=== PATIENT | female | born 1940 | race Two or more races ===

== ENCOUNTER 2019-08-15 00:45 | Inpatient (IN) | payer MEDICARE, OTHER ==
[2019-08-15] VITALS (10 sets, daily range): BP systolic 81–124; BP diastolic 45–72
[~2019-08-15] VITALS: Ht 160 cm; Wt 66.7 kg
[2019-08-15] MEDS ORDERED: ALBUTEROL2.5 MG/3 M INH (00:52)
[2019-08-15] MEDS ORDERED: CARDIZEM30 M1 PO (00:53)
[2019-08-15] MEDS ORDERED: HEPARIN SO5000 UNIT2 SUBQ (00:53)
[2019-08-15] MEDS ORDERED: ASPIRIN EC81 MG ORAL (00:53)
[2019-08-15] MEDS ORDERED: DIGOXIN125 MCG ORAL (00:53)
[2019-08-15] MEDS ORDERED: Acetaminophen 500mg (ES) tab ORAL ONE (01:00)
[2019-08-15] MEDS ORDERED: METOPROLOL TART25 MG ORAL (01:02)
[2019-08-15] MEDS ORDERED: ATORVASTATIN CA10 MG ORAL (01:02)
[2019-08-15] MEDS ORDERED: IPRATROPIU0.2 MG/1 M HHN (01:02)
[2019-08-15] MEDS ORDERED: NOVOLIN R100 UNIT/1 SUBQ (01:02)
[2019-08-15] MEDS ORDERED: NITROSTAT0.4 M1 SL (01:02)
[2019-08-15] MEDS ORDERED: POTASSIUM40 MEQ/11 PO (01:02)
[2019-08-15] MEDS ORDERED: THERA-M TABLET1 EACH PO (01:02)
[2019-08-15] MEDS ORDERED: LOMOTIL TABLET1 EACH ORAL (01:02)
[2019-08-15] MEDS ORDERED: ACETAMINOPHEN325 M1 ORAL (01:02)
[2019-08-15] MEDS ORDERED: VITAMIN C500 M1 ORAL (01:04)
[2019-08-15] MEDS ORDERED: POTASSIUM CHLO20 ME1 ORAL (01:04)
--- NOTE | 2019-08-15 01:07 | Emergency Room Report ---
History of Present Illness General Chief Complaint: Altered Level of Consciousness Source: Patient Present Illness HPI Disclaimer: Please note that this report is being documented using [employer] technology. This can lead to erroneous entry secondary to incorrect interpretation by the dictating instrument. HPI: 79-year-old female with a history of paroxysmal atrial fibrillation, asthma , COPD, CHF, diabetes, hypertension, hyperlipidemia, generalized weakness presents for evaluation of altered mental status and reported hypoxia. The patient herself cannot provide any history and is unclear what her baseline is. According to EMS she was became somewhat altered over the past few hours but they cannot elaborate as to how. There is also report of hypoxia at the nursing facility however she was 100% for EMS during transport. Cannot obtain any further information from the patient. She is nonverbal. PMH: Proximal asthma atrial fib, asthma, COPD, CHF, diabetes, hypertension, hyperlipidemia PSH: Unspecified joint replacement noted in transfer paperwork Allergies: Infliximab Social Hx: Unknown Allergies: Coded Allergies: INFLIXIMAB (Verified Allergy, Unknown, 08/15/19) Nursing Documentation-PMH Past Medical History: No History, Except For Hx Hypertension: Yes Hx Asthma: Yes Hx COPD: Yes Hx Diabetes: Yes Review of Systems All Other Systems: limited - Patient clinical condition Physical Exam Vital Signs Date Time Temp Pulse Resp B/P (MAP) Pulse Ox O2 Delivery O2 Flow Rate FiO2 08/15/19 00:40 102.0 132 22 118/64 (82) 100 Room Air General: Awake, nonverbal, febrile HEENT: NC/AT. EOMI. anicteric sclera. Cardiovascular: Tachycardic. S1 and S2 normal. No murmur appreciated Resp: Mild tachypnea. Crackles at the left lung base. No wheezing. Intermittent cough Abdomen: Abdomen is soft, nondistended. No apparent tenderness. There is bruising over the right side of the abdomen Skin: MSK: Normal tone and bulk. No obvious deformity. Neuro: Awake, nonverbal, moving all extremities though no purposeful movements. Protecting her airway. GCS is 10 Medical Decision Making Diagnostic Impression: Primary Impression: Pneumonia Additional Impressions: Tachycardia UTI (urinary tract infection) ER Course 79-year-old female presents from nursing facility for evaluation altered mental status and reported hypoxia. She arrives febrile and tachycardic. Concern for sepsis at this time. We will start broad metabolic and infectious work-up. No evidence of trauma. The bruising over the abdomen represents her DVT prophylaxis regimen. Patient has 3+ lower extremity pitting edema and concern for volume overload at this time. Will not start aggressive IV hydration but will treat fever and give antibiotics empirically. Awaiting chest x-ray and BNP prior to IV fluid administration. She will require admission. Laboratory Tests Test 08/15/19 01:00 08/15/19 01:01 08/15/19 01:40 08/15/19 03:00 Sodium Level 140 MMOL/L (136-145) Potassium Level 4.3 MMOL/L (3.5-5.1) Chloride Level 104 MMOL/L (98-107) Carbon Dioxide Level 30 MMOL/L (21-32) Anion Gap 6 mmol/L (5-15) Blood Urea Nitrogen 15 mg/dL (7-18) Creatinine 0.9 MG/DL (0.55-1.30) Estimate Glomerular Filtration Rate mL/min (>60) Glucose Level 154 MG/DL (74-106) H Lactic Acid Level 2.10 mmol/L (0.4-2.0) H Calcium Level 9.3 MG/DL (8.5-10.1) Phosphorus Level 2.5 MG/DL (2.5-4.9) Magnesium Level 1.2 MG/DL (1.8-2.4) L Total Bilirubin 0.6 MG/DL (0.2-1.0) Aspartate Amino Transferase (AST) 32 U/L (15-37) Alanine Aminotransferase (ALT) 24 U/L (12-78) Alkaline Phosphatase 109 U/L (46-116) Total Creatine Kinase 67 U/L (26-308) Creatine Kinase MB 1.8 NG/ML (0.0-3.6) Creatine Kinase MB Relative Index 2.6 Troponin I 0.018 ng/mL (0.000-0.056) Pro-B-Type Natriuretic Peptide 1179 pg/mL (0-125) H Total Protein 6.5 G/DL (6.4-8.2) Albumin 2.5 G/DL (3.4-5.0) L Globulin 4.0 g/dL Albumin/Globulin Ratio 0.6 (1.0-2.7) L Arterial Blood pH 7.450 (7.350-7.450) Arterial Blood Partial Pressure CO2 39.2 mmHg (35.0-45.0) Arterial Blood Partial Pressure O2 103.2 mmHg (75.0-100.0) H Arterial Blood HCO3 26.6 mmol/L (22.0-26.0) H Arterial Blood Oxygen Saturation Pending Arterial Blood Base Excess 2.6 (-2-2) H Brandon Test Positive White Blood Count 6.9 K/UL (4.8-10.8) Red Blood Count 3.48 M/UL (4.20-5.40) L Hemoglobin 9.6 G/DL (12.0-16.0) L Hematocrit 30.6 % (37.0-47.0) L Mean Corpuscular Volume 88 FL (80-99) Mean Corpuscular Hemoglobin 27.7 PG (27.0-31.0) Mean Corpuscular Hemoglobin Concent 31.4 G/DL (32.0-36.0) L Red Cell Distribution Width 17.5 % (11.6-14.8) H Platelet Count 158 K/UL (150-450) Mean Platelet Volume 5.2 FL (6.5-10.1) L Neutrophils (%) (Auto) % (45.0-75.0) Lymphocytes (%) (Auto) % (20.0-45.0) Monocytes (%) (Auto) % (1.0-10.0) Eosinophils (%) (Auto) % (0.0-3.0) Basophils (%) (Auto) % (0.0-2.0) Neutrophils % (Manual) Pending Lymphocytes % (Manual) Pending Platelet Estimate Pending Platelet Morphology Pending Prothrombin Time 11.2 SEC (9.30-11.50) Prothrombin Time INR 1.1 (0.9-1.1) PTT 22 SEC (23-33) L Urine Color Pale yellow Urine Appearance Slightly cloudy Urine pH 6 (4.5-8.0) Urine Specific [place] 1.010 (1.005-1.035) Urine Protein 3+ (NEGATIVE) H Urine Glucose (UA) Negative (NEGATIVE) Urine Ketones 1+ (NEGATIVE) H Urine Blood 4+ (NEGATIVE) H Urine Nitrite Positive (NEGATIVE) H Urine Bilirubin Negative (NEGATIVE) Urine Urobilinogen Normal MG/DL (0.0-1.0) Urine Leukocyte Esterase 1+ (NEGATIVE) H Urine RBC 10-15 /HPF (0 - 2) H Urine WBC 20-30 /HPF (0 - 2) H Urine Squamous Epithelial Cells Few /LPF (NONE/OCC) Urine Bacteria Moderate /HPF (NONE) H Urine Coarse Granular Casts 0-2 /LPF (NONE) H Test 08/15/19 03:22 Lactic Acid Level 1.20 mmol/L (0.66-2.22) EKG Diagnostic Results EKG Time: 00:50 Rate: tachycardiac Rhythm: NSR ST Segments: no acute changes Other Impression Tachycardic, regular rhythm, occasional PVC. No ST segment changes. Rhythm Strip Diag. Results Rhythm Strip Time: 00:50 EP Interpretation: yes Rate: 130s Rhythm: other - Occasional PVC Chest X-Ray Diagnostic Results Chest X-Ray Diagnostic Results : Chest X-Ray Ordered: Yes Indication: Shortness of Breath EP Interpretation: Yes Interpretation: other - Left-sided effusion and consolidation concerning for pneumonia Impression: Other - Left effusion and consolidation, small effusion on the right Electronically Signed by: Electronically signed by Dr. Darren Downing Reevaluation Time: 02:32 Last Vital Signs Date Time Temp Pulse Resp B/P (MAP) Pulse Ox O2 Delivery O2 Flow Rate FiO2 08/15/19 00:40 102.0 132 22 118/64 (82) 100 Room Air Status: improved Reevaluation Impression Tachycardia is improving. Chest x-ray is concerning for left-sided pneumonia. Urinalysis shows acute urinary tract infection. The patient was treated with antibiotics empirically. Blood cultures are sent. Lactate was slightly elevated. She is receiving a small bolus of IV fluids and will proceed with hydration gradually given her CHF status. Will be admitted to the hospital for further management. Disposition: ADMITTED INPATIENT Condition: Serious Darren Downing MD Aug 15, 2019 01:07
[2019-08-15] MEDS ORDERED: Cefepime HCl 2 GM in NS 110 ML IV SCH (01:15)
[2019-08-15] MEDS ORDERED: Vancomycin 1 GM in NS 275 ML IV ONE (01:15)
[2019-08-15 01:42] LABS: ANION GAP 6 mmol/L (5-15); BLOOD UREA NITROGEN 15 mg/dL (7-18); CALCIUM 9.3 MG/DL (8.5-10.1); CARBON DIOXIDE 30 MMOL/L (21-32); CHLORIDE 104 MMOL/L (98-107); CREATININE 0.9 MG/DL (0.55-1.30); POTASSIUM 4.3 MMOL/L (3.5-5.1); SODIUM 140 MMOL/L (136-145)
[2019-08-15 01:51] LABS: HEMATOCRIT 30.6 % (37.0-47.0); HEMOGLOBIN 9.6 G/DL (12.0-16.0); MEAN CORPUSCULAR VOLUME 88 FL (80-99); PLATELET COUNT 158 K/UL (150-450); RED BLOOD COUNT 3.48 M/UL (4.20-5.40); RED CELL DISTRIBUTION WIDTH 17.5 % (11.6-14.8); WHITE BLOOD COUNT 6.9 K/UL (4.8-10.8)
[2019-08-15 01:55] LABS: ALANINE AMINOTRANSFERASE 24 U/L (12-78); ALBUMIN 2.5 G/DL (3.4-5.0); ALBUMIN/GLOBULIN RATIO 0.6 (1.0-2.7); ALKALINE PHOSPHATASE 109 U/L (46-116); ASPARTATE AMINO TRANSFERASE 32 U/L (15-37); BILIRUBIN,TOTAL 0.6 MG/DL (0.2-1.0); CKMB 1.8 NG/ML (0.0-3.6); CREATINE KINASE 67 U/L (26-308); PHOSPHORUS 2.5 MG/DL (2.5-4.9)
[2019-08-15 02:13] LABS: INR 1.1 (0.9-1.1)
--- NOTE | 2019-08-15 02:30 | Diagnostic Imaging Report ---
EXAM: XR Chest, 1 View CLINICAL HISTORY: COUGH TECHNIQUE: Frontal view of the chest. COMPARISON: No relevant prior studies available. FINDINGS: Lungs: See below. Pleural space: Some increased density is seen at the lung bases suggestive of small bilateral pleural effusions versus pleural thickening with adjacent atelectasis versus infiltrate, left worse than right. No definite plain film evidence for pneumothorax. Heart: Question of some prominence of the cardiac silhouette. Mediastinum: Unremarkable. Bones joints: Thoracic dextroscoliosis. Degenerative changes of the acromioclavicular joints. IMPRESSION: Some increased density is seen at the lung bases suggestive of small bilateral pleural effusions versus pleural thickening with adjacent atelectasis versus infiltrate, left worse than right.
[2019-08-15 03:26] LABS: APPEARANCE,URINE SLIGHTLY CLOUDY; BILIRUBIN, URINE NEGATIVE (NEGATIVE); COLOR,URINE PALE YELLOW; GLUCOSE, URINE (UA) NEGATIVE (NEGATIVE); KETONES,URINE 1+ (NEGATIVE); LEUKOCYTE ESTERASE ,URINE 1+ (NEGATIVE); NITRITE,URINE POSITIVE (NEGATIVE); PH,URINE 6 (4.5-8.0); PROTEIN,URINE 3+ (NEGATIVE); UROBILINOGEN,URINE NORMAL MG/DL (0.0-1.0)
[2019-08-15] MEDS ORDERED: ACIDOPHILUS1 EAC6 PO (04:46)
[2019-08-15] MEDS ORDERED: Albuterol/Ipratropium 3ml neb HHN PRN (06:45)
[2019-08-15] MEDS ORDERED: Nitroglycerin Subl 0.4mg tab SL PRN (06:45)
[2019-08-15] MEDS ORDERED: D5 1/2NS 1,000 ML IV SCH (08:00)
[2019-08-15 08:47] LABS: HEMATOCRIT 27.8 % (37.0-47.0); HEMOGLOBIN 8.8 G/DL (12.0-16.0); MEAN CORPUSCULAR VOLUME 90 FL (80-99); PLATELET COUNT 157 K/UL (150-450); RED CELL DISTRIBUTION WIDTH 17.5 % (11.6-14.8); WHITE BLOOD COUNT 15.9 K/UL (4.8-10.8)
[2019-08-15 08:49] LABS: ANION GAP 6 mmol/L (5-15); BLOOD UREA NITROGEN 18 mg/dL (7-18); CALCIUM 8.4 MG/DL (8.5-10.1); CARBON DIOXIDE 26 MMOL/L (21-32); CHLORIDE 109 MMOL/L (98-107); POTASSIUM 3.9 MMOL/L (3.5-5.1); SODIUM 141 MMOL/L (136-145)
[2019-08-15] MEDS: NS 500 ML IV SCH ×2 (08:59→12:00)
[2019-08-15] MEDS ORDERED: Cefepime HCl 1 GM in D5W 55 ML IVPB SCH (09:00)
[2019-08-15] MEDS: Ascorbic Acid 500mg tab ORAL SCH (09:11)
[2019-08-15] MEDS: Aspirin EC 81mg tab ORAL SCH (09:11)
[2019-08-15] MEDS: Lactobacillus-GG tablet ORAL SCH ×3 (09:11→17:28)
[2019-08-15] MEDS: Pantoprazole Inj IVP SCH (09:12)
[2019-08-15] MEDS: Digoxin 0.125mg tab ORAL SCH (09:55)
[2019-08-15] MEDS ORDERED: Cefepime 2gm in D5W 55ml IVPB SCH (10:00)
[2019-08-15] MEDS: Heparin 5000 units/ml inj SUBQ SCH ×2 (10:01→22:00)
[2019-08-15] MEDS: Doxycycline Hyclate 100 MG in D5W 110 ML IV SCH ×2 (10:46→22:39)
[2019-08-15] MEDS: NovoLOG Insulin Flexpen SUBQ SCH ×3 (12:08→21:52)
--- NOTE | 2019-08-15 12:42 | History & Physical ---
History and Physical History & Physicial History and Physical HPI: Patient is a 79-year-old female from a nursing facility with a history of Paroxysmal atrial fibrillation, Asthma/COPD, Congestive Heart Failure, Diabetes , Hypertension, Hyperlipidemia, Generalized weakness admitted with Urinary Tract Infection, Possible Pneumonia, Altered mental status. The patient herself cannot provide any history. PMH: Asthma, atrial fibrillation, COPD, CHF, diabetes, hypertension, hyperlipidemia Allergies: INFLIXIMAB All Other Systems: limited - Patient clinical condition Physical Exam Vital Signs Noted Date Time Temp Pulse Resp B/P (MAP) Pulse Ox O2 Delivery O2 Flow Rate FiO2 08/15/19 00:40 102.0 132 22 118/64 (82) 100 Room Air General: Awake, nonverbal, febrile, chronicaly ill appearing HEENT: NCAT. EOMI. anicteric sclera. Dry mucus membranes Cardiovascular: Tachycardic. S1 and S2 normal. No murmur appreciated Resp: Mild tachypnea. Crackles at the left lung base. No wheezing. Abdomen: Abdomen is soft, nondistended. No apparent tenderness. There is bruising over the right side of the abdomen Skin: No rash, no edema MSK: Generally weak Neuro: Awake, nonverbal, moving all extremities though no purposeful movements. Protecting her airway. GCS is 10 Impression: Pneumonia Urinary tract infection Sepsis Paroxysmal atrial fibrillation Asthma/COPD Congestive Heart Failure Diabete Hypertension Hyperlipidemia Generalized weakness Plan IV Antibiotics IVF - cautious O2 PRN HHN [employer] medications - hold diuretics/antihypertensives for now Aspiration precautions ST evaluation PPX Monitor labs CT Head Laboratory Tests Test 08/15/19 01:00 08/15/19 01:01 08/15/19 01:40 08/15/19 03:00 Sodium Level 140 MMOL/L (136-145) Potassium Level 4.3 MMOL/L (3.5-5.1) Chloride Level 104 MMOL/L (98-107) Carbon Dioxide Level 30 MMOL/L (21-32) Anion Gap 6 mmol/L (5-15) Blood Urea Nitrogen 15 mg/dL (7-18) Creatinine 0.9 MG/DL (0.55-1.30) Estimate Glomerular Filtration Rate mL/min (>60) Glucose Level 154 MG/DL (74-106) H Lactic Acid Level 2.10 mmol/L (0.4-2.0) H Calcium Level 9.3 MG/DL (8.5-10.1) Phosphorus Level 2.5 MG/DL (2.5-4.9) Magnesium Level 1.2 MG/DL (1.8-2.4) L Total Bilirubin 0.6 MG/DL (0.2-1.0) Aspartate Amino Transferase (AST) 32 U/L (15-37) Alanine Aminotransferase (ALT) 24 U/L (12-78) Alkaline Phosphatase 109 U/L (46-116) Total Creatine Kinase 67 U/L (26-308) Creatine Kinase MB 1.8 NG/ML (0.0-3.6) Creatine Kinase MB Relative Index 2.6 Troponin I 0.018 ng/mL (0.000-0.056) Pro-B-Type Natriuretic Peptide 1179 pg/mL (0-125) H Total Protein 6.5 G/DL (6.4-8.2) Albumin 2.5 G/DL (3.4-5.0) L Globulin 4.0 g/dL Albumin/Globulin Ratio 0.6 (1.0-2.7) L Arterial Blood pH 7.450 (7.350-7.450) Arterial Blood Partial Pressure CO2 39.2 mmHg (35.0-45.0) Arterial Blood Partial Pressure O2 103.2 mmHg (75.0-100.0) H Arterial Blood HCO3 26.6 mmol/L (22.0-26.0) H Arterial Blood Oxygen Saturation Pending Arterial Blood Base Excess 2.6 (-2-2) H Brandon Test Positive White Blood Count 6.9 K/UL (4.8-10.8) Red Blood Count 3.48 M/UL (4.20-5.40) L Hemoglobin 9.6 G/DL (12.0-16.0) L Hematocrit 30.6 % (37.0-47.0) L Mean Corpuscular Volume 88 FL (80-99) Mean Corpuscular Hemoglobin 27.7 PG (27.0-31.0) Mean Corpuscular Hemoglobin Concent 31.4 G/DL (32.0-36.0) L Red Cell Distribution Width 17.5 % (11.6-14.8) H Platelet Count 158 K/UL (150-450) Mean Platelet Volume 5.2 FL (6.5-10.1) L Neutrophils (%) (Auto) % (45.0-75.0) Lymphocytes (%) (Auto) % (20.0-45.0) Monocytes (%) (Auto) % (1.0-10.0) Eosinophils (%) (Auto) % (0.0-3.0) Basophils (%) (Auto) % (0.0-2.0) Neutrophils % (Manual) Pending Lymphocytes % (Manual) Pending Platelet Estimate Pending Platelet Morphology Pending Prothrombin Time 11.2 SEC (9.30-11.50) Prothrombin Time INR 1.1 (0.9-1.1) PTT 22 SEC (23-33) L Urine Color Pale yellow Urine Appearance Slightly cloudy Urine pH 6 (4.5-8.0) Urine Specific [place] 1.010 (1.005-1.035) Urine Protein 3+ (NEGATIVE) H Urine Glucose (UA) Negative (NEGATIVE) Urine Ketones 1+ (NEGATIVE) H Urine Blood 4+ (NEGATIVE) H Urine Nitrite Positive (NEGATIVE) H Urine Bilirubin Negative (NEGATIVE) Urine Urobilinogen Normal MG/DL (0.0-1.0) Urine Leukocyte Esterase 1+ (NEGATIVE) H Urine RBC 10-15 /HPF (0 - 2) H Urine WBC 20-30 /HPF (0 - 2) H Urine Squamous Epithelial Cells Few /LPF (NONE/OCC) Urine Bacteria Moderate /HPF (NONE) H Urine Coarse Granular Casts 0-2 /LPF (NONE) H Test 08/15/19 03:22 Lactic Acid Level 1.20 mmol/L (0.66-2.22) EKG: tachycardic, regular rhythm, occasional PVC. No ST segment changes. Chest X-Ray: Left-sided effusion and consolidation concerning for pneumonia Urinalysis urinary tract infection. Labs noted. Smooth Tim MD Aug 15, 2019 12:42
--- NOTE | 2019-08-15 14:24 | Diagnostic Imaging Report ---
Indications: Altered level of consciousness Technique: Spiral acquisitions obtained through the brain. Angled axial and coronal 5 x 5 mm slices were reconstructed. Total dose length product 1298 mGycm. CTDI vol(s) 60 mGy. Dose reduction achieved using automated exposure control Comparison: None. Findings: There is age-related enlargement of the ventricles and extra axial CSF spaces. Normal robbins-white differentiation. No acute intracranial hemorrhage or edema. No mass effect nor midline shift. Normal robbins-white differentiation. Intact calvarium. There is evidence of prior bilateral cataract surgery. There is mucosal thickening of the left maxillary sinus. The visualized sinuses are otherwise clear. The calvarium is intact. There is mastoid disease bilaterally, left greater than right Impression: Age-related changes. Negative for acute intracranial bleed or mass effect Mastoid and left maxillary sinus disease This agrees with the preliminary interpretation provided overnight by [facility] teleradiology service. The CT scanner at [facility] is accredited by the [employer] and the scans are performed using protocols designed to limit radiation exposure to as low as reasonably achievable to attain images of sufficient resolution adequate for diagnostic evaluation.
[2019-08-16] VITALS: BP 105/68
[2019-08-16] MEDS: Cefepime 2gm in D5W 55ml IVPB SCH ×2 (02:11→14:35)
[2019-08-16] MEDS ORDERED: Vancomycin 750mg/D5W 275ml IVPB SCH ×4 (02:30→04:00)
[2019-08-16 04:00] VITALS: BP 129/73
[2019-08-16] MEDS: NovoLOG Insulin Flexpen SUBQ SCH ×4 (06:22→20:52)
[2019-08-16 07:40] LABS: HEMATOCRIT 26.9 % (37.0-47.0); HEMOGLOBIN 8.3 G/DL (12.0-16.0); MEAN CORPUSCULAR VOLUME 88 FL (80-99); PLATELET COUNT 178 K/UL (150-450); RED BLOOD COUNT 3.04 M/UL (4.20-5.40); RED CELL DISTRIBUTION WIDTH 17.6 % (11.6-14.8); WHITE BLOOD COUNT 10.4 K/UL (4.8-10.8)
[2019-08-16 08:04] VITALS: BP 136/78
--- NOTE | 2019-08-16 08:33 | Pulmonology Progress Note ---
Assessment/Plan Assessment/Plan Impression: Pneumonia Urinary tract infection Possible Sepsis Paroxysmal atrial fibrillation Asthma/COPD Congestive Heart Failure Diabetes Hypertension Hyperlipidemia Generalized weakness Plan IV Antibiotics ID evaluation O2 PRN HHN with albuterol hold diuresis and monitor Aspiration precautions ST evaluation and recommendations monitor for change impression, plan, and exam edited and reviewed in detail care discussed with RN Subjective ROS Limited/Unobtainable: Yes Allergies: Coded Allergies: INFLIXIMAB (Verified Allergy, Unknown, 08/15/19) Subjective care noted still with some congestion on oxygen Objective Last 24 Hour Vital Signs Date Time Temp Pulse Resp B/P (MAP) Pulse Ox O2 Delivery O2 Flow Rate FiO2 08/16/19 08:04 98.6 124 20 136/78 (97) 96 08/16/19 04:00 119 08/16/19 04:00 98.2 113 21 129/73 (91) 95 08/16/19 00:00 98.6 95 21 105/68 (80) 94 08/16/19 00:00 121 08/15/19 21:00 Nasal Cannula 2.0 Nasal Cannula 2.0 08/15/19 20:13 101 20 97 Room Air 21 08/15/19 20:00 121 08/15/19 20:00 99.5 100 22 124/72 (89) 98 08/15/19 16:00 115 08/15/19 12:00 97.9 102 21 95/72 (80) 98 08/15/19 12:00 100 08/15/19 09:55 102 08/15/19 09:00 Nasal Cannula 2.0 Nasal Cannula 2.0 Intake and Output 08/15/19 08/16/19 19:00 07:00 Intake Total 360 ml 120 ml Output Total 800 ml 600 ml Balance -440 ml -480 ml Intake Oral 360 ml 120 ml Output Urine Total 800 ml 600 ml # Bowel Movements 1 Objective WDWN on oxygen mild distress reduced breath sounds bilaterally with some rhonchi [id number] without MRG NABS nontender no HSM no CCE nonfocal Microbiology Date/Time Source Procedure Growth Status 08/15/19 01:52 Blood Blood Culture - Preliminary NO GROWTH AFTER 24 HOURS Resulted 08/15/19 01:00 Blood Blood Culture - Preliminary NO GROWTH AFTER 24 HOURS Resulted 08/15/19 03:00 Urine,Clean Catch Urine Culture - Preliminary Gram Negative Bacillus 1 Resulted 08/15/19 02:37 Rectum Received Laboratory Tests 08/16/19 06:00: White Blood Count 10.4, Red Blood Count 3.04L, Hemoglobin 8.3L, Hematocrit 26.9L , Mean Corpuscular Volume 88, Mean Corpuscular Hemoglobin 27.2, Mean Corpuscular Hemoglobin Concent 30.8L, Red Cell Distribution Width 17.6H, Platelet Count 178, Mean Platelet Volume 6.3L, Neutrophils (%) (Auto) , Lymphocytes (%) (Auto) , Monocytes (%) (Auto) , Eosinophils (%) (Auto) , Basophils (%) (Auto) , Neutrophils % (Manual) [Pending], Lymphocytes % (Manual) [Pending], Platelet Estimate [Pending], Platelet Morphology [Pending], Sodium Level [Pending], Potassium Level [Pending], Chloride Level [Pending], Carbon Dioxide Level [Pending], Blood Urea Nitrogen [Pending], Creatinine [Pending], Estimat Glomerular Filtration Rate [Pending], Glucose Level [Pending], Calcium Level [Pending] Current Medications Medications (Trade) Dose Ordered Sig/Ronaldo Route PRN Reason Start Time Stop Time Status Last Admin Dose Admin Acetaminophen (Tylenol) 650 mg Q6H PRN ORAL Mild Pain/Temp > 100.5 08/15/19 06:45 09/14/19 06:44 08/16/19 00:26 Albuterol/ Ipratropium (Albuterol/ Ipratropium) 3 ml Q4HRT PRN HHN Shortness of Breath 08/15/19 06:45 08/20/19 06:44 Ascorbic Acid (Vitamin C) 500 mg DAILY ORAL 08/15/19 09:00 09/14/19 08:59 08/15/19 09:11 Aspirin (Ecotrin) 81 mg DAILY ORAL 08/15/19 09:00 09/14/19 08:59 08/15/19 09:11 Atorvastatin Calcium (Lipitor) 10 mg BEDTIME ORAL 08/15/19 21:00 09/14/19 20:59 08/15/19 21:58 Cefepime HCl 2 gm/ Dextrose 55 ml @ 110 mls/hr Q12H IVPB 08/16/19 02:00 08/23/19 01:59 08/16/19 02:11 Dextrose (Dextrose 50%) 25 ml Q30M PRN IV Hypoglycemia 08/15/19 06:45 09/14/19 06:44 Dextrose (Dextrose 50%) 50 ml Q30M PRN IV Hypoglycemia 08/15/19 06:45 09/14/19 06:44 Digoxin (Lanoxin) 0.125 mg DAILY ORAL 08/15/19 09:00 09/14/19 08:59 08/15/19 09:55 Doxycycline Hyclate 100 mg/ Dextrose 110 ml @ 110 mls/hr Q12HR IV 08/15/19 08:00 08/22/19 07:59 08/15/19 22:39 Heparin Sodium (Porcine) (Heparin 5000 units/ml) 5,000 units EVERY 12 HOURS SUBQ 08/15/19 09:00 09/14/19 08:59 08/15/19 22:00 Insulin Aspart (NovoLOG) BEFORE MEALS AND HS SUBQ 08/15/19 11:30 09/14/19 11:29 08/15/19 21:52 Lactobacillus Acidophilus (Culturelle) 1 tab THREE TIMES A DAY ORAL 08/15/19 09:00 09/14/19 08:59 08/15/19 17:28 Metronidazole 100 ml @ 100 mls/hr Q8H IVPB 08/16/19 01:00 08/23/19 00:59 08/16/19 01:21 Multivitamins (Multivitamins) 1 tab DAILY ORAL 08/15/19 09:00 09/14/19 08:59 08/15/19 09:11 Nitroglycerin (Ntg) 0.4 mg Q5M PRN SL CHEST PAIN 08/15/19 06:45 09/14/19 06:44 Pantoprazole (Protonix) 40 mg DAILY IVP 08/15/19 09:00 09/14/19 08:59 08/15/19 09:12 Vancomycin HCl (Vanco rx to dose) 1 ea DAILY PRN MISC Per rx protocol 08/15/19 06:45 09/14/19 06:44 Vancomycin HCl 750 mg/Dextrose 275 ml @ 183.333 mls/hr Q24H IVPB 08/16/19 04:00 08/21/19 03:59 08/16/19 04:41 Piero Lu MD Aug 16, 2019 08:33
[2019-08-16] MEDS: Heparin 5000 units/ml inj SUBQ SCH ×2 (08:44→20:05)
[2019-08-16] MEDS: Pantoprazole Inj IVP SCH (08:45)
[2019-08-16] MEDS: Doxycycline Hyclate 100 MG in D5W 110 ML IV SCH ×2 (08:45→20:00)
[2019-08-16] MEDS: Lactobacillus-GG tablet ORAL SCH ×3 (08:45→17:37)
[2019-08-16] MEDS: Aspirin EC 81mg tab ORAL SCH (08:45)
[2019-08-16] MEDS: Ascorbic Acid 500mg tab ORAL SCH (08:46)
[2019-08-16] MEDS: Digoxin 0.125mg tab ORAL SCH (08:46)
[2019-08-16 08:47] LABS: ANION GAP 5 mmol/L (5-15); BLOOD UREA NITROGEN 15 mg/dL (7-18); CALCIUM 8.9 MG/DL (8.5-10.1); CARBON DIOXIDE 27 MMOL/L (21-32); CHLORIDE 111 MMOL/L (98-107); CREATININE 0.8 MG/DL (0.55-1.30); POTASSIUM 3.4 MMOL/L (3.5-5.1); SODIUM 143 MMOL/L (136-145)
[2019-08-16 11:37] VITALS: BP 123/76
--- NOTE | 2019-08-16 15:30 | Consultation ---
DATE OF CONSULTATION: 08/16/2019 INFECTIOUS DISEASES CONSULTATION CONSULTING PHYSICIAN: Terry Solorzano M.D. REFERRING PHYSICIAN: Piero Lu M.D. REASON FOR CONSULTATION: Urinary tract infection. HISTORY OF PRESENTING ILLNESS: This is a 79-year-old lady with history of asthma, COPD, congestive heart failure, diabetes, hypertension, and hyperlipidemia, who comes in with weakness and fever. She was found to have urinary tract infection. She was also found to have a pneumonia and an Infectious Diseases consultation has been obtained for antibiotics. PAST MEDICAL HISTORY: 1. History of asthma. 2. COPD. 3. Diabetes. 4. Hypertension. 5. Hyperlipidemia. 6. Atrial fibrillation. 7. CHF. SOCIAL HISTORY: She does not smoke, drink, or use drugs. FAMILY HISTORY: Noncontributory. REVIEW OF SYSTEMS: RESPIRATORY: She has fever and chills. No cough. No shortness of breath or chest pain. CARDIAC: No chest pain. No palpitations. No dizziness. No syncope. GASTROINTESTINAL: No nausea, no vomiting, no abdominal pain or diarrhea. MEDICATIONS: As an inpatient, the patient is on IV vancomycin, cefepime, Flagyl, atorvastatin, insulin, ascorbic acid, aspirin, , subcutaneous heparin, Lactobacillus, multivitamin, Protonix, doxycycline, nitroglycerin, Tylenol, albuterol and ipratropium. ALLERGIES: To infliximab. PHYSICAL EXAMINATION: VITAL SIGNS: Temperature of 98.6, T-max of 101.8, pulse of 124, respiratory rate 22, blood pressure 136/78, O2 saturation of 96%. HEENT: Pupils equally reactive to light and accommodation. Mouth appears clean without thrush. NECK: Supple. No adenopathy. No JVD. CARDIOVASCULAR: Regular rate and rhythm. No murmurs. LUNGS: Clear to auscultation bilaterally. No crackles. No wheezes. ABDOMEN: Soft and nontender. No organomegaly. EXTREMITIES: No cyanosis, no clubbing. Edema noted bilaterally. LABORATORY AND DIAGNOSTIC DATA: White count of 15.9 on 08/15/2019. On 08/16/2019, white count of 10.4, hemoglobin 8.3, hematocrit 26.9, MCV 88, platelet count of 178. Sodium 143, potassium 3.4, chloride 111, bicarb 27, BUN 15, creatinine 0.8, glucose 98, calcium 8.9. UA showing 20 to 30 white cells. Urine culture showing gram-negative rods. Blood culture showing gram-negative rods. Chest x-ray showing small bilateral effusion versus pleural thickening with adjacent atelectasis versus infiltrate, left worse than the right. CT head showing negative for bleed or mass effect, mastoid and left maxillary sinus disease. ASSESSMENT: This is a 79-year-old lady with history of diabetes, hypertension, atrial fibrillation, who comes in with weakness and fevers and was found to have, 1. Gram-negative sepsis, which probably is secondary to urinary tract infection. 2. Gram-negative urinary tract infection. 3. Possible pneumonia. 4. Diabetes. 5. Hypertension. 6. Leukocytosis has resolved. PLAN: 1. Discontinue IV vancomycin and Flagyl. 2. Continue cefepime and doxycycline. 3. We will follow up cultures and adjust antibiotics accordingly. I would like to thank, Dr. Lu, for this consultation. Terry Solorzano M.D. DR: ELIZABETH JOB#: [id number] CC: Piero Lu M.D.; Fax#: [phone]
[2019-08-16 16:00] VITALS: BP 126/78
[2019-08-16 20:00] VITALS: BP 129/85
[2019-08-17] VITALS (30 sets, daily range): BP systolic 100–150; BP diastolic 48–97
[2019-08-17] MEDS ORDERED: Metoprolol Tartrate 12.5mg TAB ORAL SCH ×2 (00:15→09:00)
[2019-08-17] MEDS ORDERED: Metoprolol 25mg tab ONE (00:20)
[2019-08-17] MEDS: Cefepime 2gm in D5W 55ml IVPB SCH (02:40)
[2019-08-17] MEDS ORDERED: Digoxin 0.125mg tab ORAL ONE (03:00)
[2019-08-17] MEDS ORDERED: Metoprolol Tartrate 12.5mg TAB ORAL ONE (03:00)
[2019-08-17] MEDS: NovoLOG Insulin Flexpen SUBQ SCH ×4 (06:30→20:30)
[2019-08-17 06:33] LABS: BASOPHILS % (AUTO) 0.4 % (0.0-2.0); EOSINOPHILS % (AUTO) 0.6 % (0.0-3.0); HEMATOCRIT 28.1 % (37.0-47.0); HEMOGLOBIN 8.5 G/DL (12.0-16.0); LYMPHOCYTES % (AUTO) 11.6 % (20.0-45.0); MEAN CORPUSCULAR VOLUME 89 FL (80-99); MONOCYTES % (AUTO) 8.4 % (1.0-10.0); NEUTROPHILS % (AUTO) 79.1 % (45.0-75.0); PLATELET COUNT 173 K/UL (150-450); RED BLOOD COUNT 3.15 M/UL (4.20-5.40); RED CELL DISTRIBUTION WIDTH 17.2 % (11.6-14.8); WHITE BLOOD COUNT 7.4 K/UL (4.8-10.8)
[2019-08-17 07:01] LABS: ANION GAP 7 mmol/L (5-15); BLOOD UREA NITROGEN 14 mg/dL (7-18); CALCIUM 9.6 MG/DL (8.5-10.1); CARBON DIOXIDE 28 MMOL/L (21-32); CHLORIDE 109 MMOL/L (98-107); CREATININE 0.7 MG/DL (0.55-1.30); POTASSIUM 3.7 MMOL/L (3.5-5.1); SODIUM 144 MMOL/L (136-145)
--- NOTE | 2019-08-17 07:41 | General Progress Note ---
Assessment/Plan Problem List: (1) Diabetes ICD Codes: E11.9 - Type 2 diabetes mellitus without complications SNOMED: 58215342 (2) Hypertension ICD Codes: I10 - Essential (primary) hypertension SNOMED: 12099265 (3) Anemia ICD Codes: D64.9 - Anemia, unspecified SNOMED: 305247412 (4) UTI (urinary tract infection) ICD Codes: N39.0 - Urinary tract infection, site not specified SNOMED: 16651694 (5) Tachycardia ICD Codes: R00.0 - Tachycardia, unspecified SNOMED: 6840593 (6) Pneumonia ICD Codes: J18.9 - Pneumonia, unspecified organism SNOMED: 139357983 (7) Bacteremia ICD Codes: R78.81 - Bacteremia SNOMED: 3685575 Status: stable Assessment/Plan: wean cardizem drip b-blockade iv abx follow up cultures dvt/stress ulcer prophylaxis Subjective ROS Limited/Unobtainable: No Constitutional: Reports: malaise, weakness HEENT: Reports: no symptoms Cardiovascular: Reports: no symptoms Respiratory: Reports: cough, shortness of breath Gastrointestinal/Abdominal: Reports: no symptoms Genitourinary: Reports: no symptoms Neurologic/Psychiatric: Reports: no symptoms Endocrine: Reports: no symptoms Hematologic/Lymphatic: Reports: anemia Allergies: Coded Allergies: INFLIXIMAB (Verified Allergy, Unknown, 08/15/19) All Systems: reviewed and negative except above Subjective transferred to the icu for svt. on cardizem drip. HR low 100s. no complaints currently. no cp/sob. Objective Last 24 Hour Vital Signs Date Time Temp Pulse Resp B/P (MAP) Pulse Ox O2 Delivery O2 Flow Rate FiO2 08/17/19 07:00 112 30 140/67 (91) 100 08/17/19 06:30 108 26 125/48 (73) 100 08/17/19 06:15 112 17 123/67 (85) 100 08/17/19 06:00 116 36 120/65 (83) 97 08/17/19 05:55 113 33 100 08/17/19 05:45 111 32 115/63 (80) 100 08/17/19 05:30 109 22 120/67 (84) 100 08/17/19 05:25 109 29 99 08/17/19 05:15 121 28 128/91 (103) 97 08/17/19 05:00 104 26 120/65 (83) 100 08/17/19 04:55 104 27 100 08/17/19 04:49 105 08/17/19 04:45 110 35 114/58 (76) 100 08/17/19 04:30 98.4 102 23 121/70 (87) 100 08/17/19 04:25 107 33 100 08/17/19 04:15 104 114/58 08/17/19 04:00 98.5 120 140/77 (98) 20 08/17/19 04:00 114 08/17/19 03:15 120 08/17/19 03:14 120 140/76 08/17/19 00:37 126 150/66 08/17/19 00:00 99.1 128 150/78 (102) 20 08/16/19 22:00 115 08/16/19 21:20 111 21 97 Nasal Cannula 2.0 28 08/16/19 21:00 Nasal Cannula 2.0 Nasal Cannula 2.0 08/16/19 20:00 98.8 127 129/85 (100) 20 08/16/19 16:00 115 08/16/19 16:00 98.8 117 126/78 (94) 20 08/16/19 12:00 117 08/16/19 11:37 99.4 119 123/76 (92) 20 08/16/19 11:35 99.4 08/16/19 09:00 Nasal Cannula 2.0 Nasal Cannula 2.0 08/16/19 08:46 124 08/16/19 08:10 119 22 96 Nasal Cannula 2.0 28 08/16/19 08:04 98.6 124 20 136/78 (97) 96 08/16/19 08:00 119 Intake and Output 08/16/19 08/17/19 19:00 07:00 Intake Total 730 ml Output Total 1700 ml 150 ml Balance -970 ml -150 ml Intake Oral 730 ml Output Urine Total 1700 ml 150 ml # Bowel Movements 1 1 Laboratory Tests 08/17/19 05:56: White Blood Count 7.4, Red Blood Count 3.15L, Hemoglobin 8.5L, Hematocrit 28.1L , Mean Corpuscular Volume 89, Mean Corpuscular Hemoglobin 27.2, Mean Corpuscular Hemoglobin Concent 30.4L, Red Cell Distribution Width 17.2H, Platelet Count 173, Mean Platelet Volume 5.8L, Neutrophils (%) (Auto) 79.1H, Lymphocytes (%) (Auto) 11.6L, Monocytes (%) (Auto) 8.4, Eosinophils (%) (Auto) 0.6, Basophils (%) (Auto) 0.4, Sodium Level 144, Potassium Level 3.7, Chloride Level 109H, Carbon Dioxide Level 28, Anion Gap 7, Blood Urea Nitrogen 14, Creatinine 0.7, Estimat Glomerular Filtration Rate , Glucose Level 95, Calcium Level 9.6 Height (Feet): 5 Height (Inches): 3.00 Weight (Pounds): 154 General Appearance: WD/WN, alert Neck: supple Cardiovascular: regular rhythm, tachycardia Respiratory/Chest: chest wall non-tender, lungs clear, normal breath sounds, no respiratory distress Abdomen: normal bowel sounds, non tender, soft, no organomegaly Edema: 1+ Leg (L), 1+ Leg (R) Neurologic: materials specialist II-XII grossly normal, no motor/sensory deficits, alert, oriented x 3, responsive Carmine Krishna MD Aug 17, 2019 07:41
[2019-08-17] MEDS ORDERED: Nitroglycerin Subl 0.4mg tab SL PRN (08:15)
--- NOTE | 2019-08-17 08:54 | Pulmonology Progress Note ---
Assessment/Plan Assessment/Plan Impression: Pneumonia Urinary tract infection Possible Sepsis Paroxysmal atrial fibrillation Asthma/COPD Congestive Heart Failure Diabetes Hypertension Hyperlipidemia Generalized weakness Tachyarrythmia Plan IV Antibiotics ID evaluation noted O2 PRN HHN with albuterol cardizem drip cards evaluation diurese as able CXR repeat Aspiration precautions ST follow up monitor for change critical reattempt venous US medications/laboratory data/nursing notes/ICU care reviewed in detail note reviewed and edited care discussed with RN and RT ICU time spent 40 minutes Subjective Allergies: Coded Allergies: INFLIXIMAB (Verified Allergy, Unknown, 08/15/19) Subjective care noted noted congestion on oxygen could not lay flat for venous US transferred to ICU for tachyarrythmia Objective Last 24 Hour Vital Signs Date Time Temp Pulse Resp B/P (MAP) Pulse Ox O2 Delivery O2 Flow Rate FiO2 08/17/19 07:40 103 18 96 Nasal Cannula 2.0 28 08/17/19 07:00 112 30 140/67 (91) 100 08/17/19 06:30 108 26 125/48 (73) 100 08/17/19 06:15 112 17 123/67 (85) 100 08/17/19 06:00 116 36 120/65 (83) 97 08/17/19 05:55 113 33 100 08/17/19 05:45 111 32 115/63 (80) 100 08/17/19 05:30 109 22 120/67 (84) 100 08/17/19 05:25 109 29 99 08/17/19 05:15 121 28 128/91 (103) 97 08/17/19 05:00 104 26 120/65 (83) 100 08/17/19 04:55 104 27 100 08/17/19 04:49 105 08/17/19 04:45 110 35 114/58 (76) 100 08/17/19 04:30 98.4 102 23 121/70 (87) 100 08/17/19 04:25 107 33 100 08/17/19 04:15 104 114/58 08/17/19 04:00 98.5 120 140/77 (98) 20 08/17/19 04:00 114 08/17/19 03:15 120 08/17/19 03:14 120 140/76 08/17/19 00:37 126 150/66 08/17/19 00:00 99.1 128 150/78 (102) 20 10/7/19 22:00 115 08/16/19 21:20 111 21 97 Nasal Cannula 2.0 28 08/16/19 21:00 Nasal Cannula 2.0 Nasal Cannula 2.0 08/16/19 20:00 98.8 127 129/85 (100) 20 08/16/19 16:00 115 08/16/19 16:00 98.8 117 126/78 (94) 20 08/16/19 12:00 117 08/16/19 11:37 99.4 119 123/76 (92) 20 08/16/19 11:35 99.4 08/16/19 09:00 Nasal Cannula 2.0 Nasal Cannula 2.0 Intake and Output 08/16/19 08/17/19 19:00 07:00 Intake Total 730 ml Output Total 1700 ml 230 ml Balance -970 ml -230 ml Intake Oral 730 ml Output Urine Total 1700 ml 230 ml # Bowel Movements 1 1 Objective WDWN on oxygen mild distress reduced breath sounds bilaterally with some rhonchi [id number] tachy without MRG NABS nontender no HSM no CC noted edema- pitting nonfocal Microbiology Date/Time Source Procedure Growth Status 08/15/19 01:52 Blood Blood Culture - Preliminary Gram Negative Bacillus 1 Resulted 08/15/19 01:00 Blood Blood Culture - Preliminary Gram Negative Bacillus 1 Resulted 08/15/19 03:00 Urine,Clean Catch Urine Culture - Final Escherichia Coli - Esbl Complete 08/15/19 02:37 Rectum VRE Culture - Final Enterococcus Faecalis - Vre Complete 08/15/19 02:37 Rectum - Final NO CARBAPENEM-RESISTANT ENTEROBACTERI... Complete Laboratory Tests 08/17/19 05:56: White Blood Count 7.4, Red Blood Count 3.15L, Hemoglobin 8.5L, Hematocrit 28.1L , Mean Corpuscular Volume 89, Mean Corpuscular Hemoglobin 27.2, Mean Corpuscular Hemoglobin Concent 30.4L, Red Cell Distribution Width 17.2H, Platelet Count 173, Mean Platelet Volume 5.8L, Neutrophils (%) (Auto) 79.1H, Lymphocytes (%) (Auto) 11.6L, Monocytes (%) (Auto) 8.4, Eosinophils (%) (Auto) 0.6, Basophils (%) (Auto) 0.4, Sodium Level 144, Potassium Level 3.7, Chloride Level 109H, Carbon Dioxide Level 28, Anion Gap 7, Blood Urea Nitrogen 14, Creatinine 0.7, Estimat Glomerular Filtration Rate , Glucose Level 95, Calcium Level 9.6 Current Medications Medications (Trade) Dose Ordered Sig/Ronaldo Route PRN Reason Start Time Stop Time Status Last Admin Dose Admin Acetaminophen (Tylenol) 650 mg Q6H PRN ORAL Mild Pain/Temp > 100.5 08/17/19 08:30 09/16/19 08:29 Albuterol/ Ipratropium (Albuterol/ Ipratropium) 3 ml Q4HRT PRN HHN Shortness of Breath 08/17/19 11:00 08/20/19 06:44 Ascorbic Acid (Vitamin C) 500 mg DAILY ORAL 08/17/19 09:00 09/14/19 08:59 Aspirin (Ecotrin) 81 mg DAILY ORAL 08/17/19 09:00 09/14/19 08:59 Atorvastatin Calcium (Lipitor) 10 mg BEDTIME ORAL 08/17/19 21:00 09/14/19 20:59 Cefepime HCl 2 gm/ Dextrose 55 ml @ 110 mls/hr Q12H IVPB 08/17/19 14:00 08/23/19 01:59 Dextrose (Dextrose 50%) 25 ml Q30M PRN IV Hypoglycemia 08/17/19 08:15 09/14/19 06:44 Dextrose (Dextrose 50%) 50 ml Q30M PRN IV Hypoglycemia 08/17/19 08:15 09/14/19 06:44 Digoxin (Lanoxin) 0.125 mg DAILY ORAL 08/17/19 09:00 09/14/19 08:59 Diltiazem HCl 125 mg/Dextrose 125 ml @ 0 mls/hr Q24H IV 08/17/19 09:00 09/16/19 08:59 Doxycycline Hyclate 100 mg/ Dextrose 110 ml @ 110 mls/hr Q12HR IV 08/17/19 09:00 08/22/19 07:59 Heparin Sodium (Porcine) (Heparin 5000 units/ml) 5,000 units EVERY 12 HOURS SUBQ 08/17/19 09:00 09/14/19 08:59 Insulin Aspart (NovoLOG) BEFORE MEALS AND HS SUBQ 08/17/19 11:30 09/14/19 11:29 Lactobacillus Acidophilus (Culturelle) 1 tab THREE TIMES A DAY ORAL 08/17/19 09:00 09/14/19 08:59 Metoprolol Tartrate (Lopressor) 12.5 mg Q12HR ORAL 08/17/19 09:00 09/16/19 08:59 Multivitamins (Multivitamins) 1 tab DAILY ORAL 08/17/19 09:00 09/14/19 08:59 Nitroglycerin (Ntg) 0.4 mg Q5M PRN SL CHEST PAIN 08/17/19 08:15 09/14/19 06:44 Pantoprazole (Protonix) 40 mg DAILY IVP 08/17/19 09:00 09/14/19 08:59 Piero Lu MD Aug 17, 2019 08:54
[2019-08-17] MEDS ORDERED: Digoxin 0.125mg tab ORAL SCH (09:00)
[2019-08-17] MEDS ORDERED: Doxycycline Hyclate 100 MG in D5W 110 ML IV SCH (09:00)
[2019-08-17] MEDS: Ascorbic Acid 500mg tab ORAL SCH (09:41)
[2019-08-17] MEDS: Aspirin EC 81mg tab ORAL SCH (09:41)
[2019-08-17] MEDS: Metoprolol Tartrate 12.5mg TAB ORAL SCH ×2 (09:42→20:27)
[2019-08-17] MEDS: Lactobacillus-GG tablet ORAL SCH ×3 (09:42→17:27)
[2019-08-17] MEDS: Pantoprazole Inj IVP SCH (09:43)
[2019-08-17] MEDS: Heparin 5000 units/ml inj SUBQ SCH ×2 (09:45→20:30)
--- NOTE | 2019-08-17 10:51 | Infectious Diseases Prog Note ---
Assessment/Plan Assessment/Plan antibiotics : cefepime, doxycycline A 1. gram negative UTI 2. e.coli esbl UTI 3. pneumonia 4. leucocytosis resolved 5. diabetes mellitus 6. hypertension P 1. d/c cefepime, doxycycline 2. start meropenem 3. will follow up cultures Subjective Constitutional: Denies: fever, chills Respiratory: Reports: dry cough; Denies: shortness of breath Gastrointestinal/Abdominal: Denies: nausea, vomiting, diarrhea Musculoskeletal: Denies: pain Allergies: Coded Allergies: INFLIXIMAB (Verified Allergy, Unknown, 08/15/19) Objective Vital Signs Last 24 Hour Vital Signs Date Time Temp Pulse Resp B/P (MAP) Pulse Ox O2 Delivery O2 Flow Rate FiO2 08/17/19 10:12 98.4 08/17/19 10:00 112 19 124/68 (86) 100 08/17/19 09:42 103 140/67 08/17/19 09:41 116 08/17/19 09:30 108 19 121/56 (77) 100 08/17/19 09:00 121 34 124/90 (101) 92 08/17/19 08:30 112 26 100/48 (65) 100 08/17/19 08:00 98.5 113 29 119/73 (88) 100 08/17/19 07:40 103 18 96 Nasal Cannula 2.0 28 08/17/19 07:00 112 30 140/67 (91) 100 08/17/19 06:30 108 26 125/48 (73) 100 08/17/19 06:15 112 17 123/67 (85) 100 08/17/19 06:00 116 36 120/65 (83) 97 08/17/19 05:55 113 33 100 08/17/19 05:45 111 32 115/63 (80) 100 08/17/19 05:30 109 22 120/67 (84) 100 08/17/19 05:25 109 29 99 08/17/19 05:15 121 28 128/91 (103) 97 08/17/19 05:00 104 26 120/65 (83) 100 08/17/19 04:55 104 27 100 08/17/19 04:49 105 08/17/19 04:45 110 35 114/58 (76) 100 08/17/19 04:30 98.4 102 23 121/70 (87) 100 08/17/19 04:25 107 33 100 08/17/19 04:15 104 114/58 08/17/19 04:00 98.5 120 140/77 (98) 20 08/17/19 04:00 114 08/17/19 03:15 120 08/17/19 03:14 120 140/76 08/17/19 00:37 126 150/66 08/17/19 00:00 99.1 128 150/78 (102) 20 08/16/19 22:00 115 08/16/19 21:20 111 21 97 Nasal Cannula 2.0 28 08/16/19 21:00 Nasal Cannula 2.0 Nasal Cannula 2.0 08/16/19 20:00 98.8 127 129/85 (100) 20 08/16/19 16:00 115 08/16/19 16:00 98.8 117 126/78 (94) 20 08/16/19 12:00 117 08/16/19 11:37 99.4 119 123/76 (92) 20 08/16/19 11:35 99.4 Height (Feet): 5 Height (Inches): 3.00 Weight (Pounds): 154 Respiratory/Chest: lungs clear Cardiovascular: normal rate, regular rhythm, no gallop/murmur Abdomen: soft, non tender Extremities: other - + edema Microbiology Date/Time Source Procedure Growth Status 08/15/19 01:52 Blood Blood Culture - Preliminary Gram Negative Bacillus 1 Resulted 08/15/19 01:00 Blood Blood Culture - Preliminary Gram Negative Bacillus 1 Resulted 08/15/19 02:37 Nasal Nares MRSA Culture - Final NO METHICILLIN RESISTANT STAPH AUREUS... Complete 08/15/19 03:00 Urine,Clean Catch Urine Culture - Final Escherichia Coli - Esbl Complete 08/15/19 02:37 Rectum VRE Culture - Final Enterococcus Faecalis - Vre Complete 08/15/19 02:37 Rectum - Final NO CARBAPENEM-RESISTANT ENTEROBACTERI... Complete Laboratory Tests Test 08/17/19 05:56 White Blood Count 7.4 K/UL (4.8-10.8) Red Blood Count 3.15 M/UL (4.20-5.40) L Hemoglobin 8.5 G/DL (12.0-16.0) L Hematocrit 28.1 % (37.0-47.0) L Mean Corpuscular Volume 89 FL (80-99) Mean Corpuscular Hemoglobin 27.2 PG (27.0-31.0) Mean Corpuscular Hemoglobin Concent 30.4 G/DL (32.0-36.0) L Red Cell Distribution Width 17.2 % (11.6-14.8) H Platelet Count 173 K/UL (150-450) Mean Platelet Volume 5.8 FL (6.5-10.1) L Neutrophils (%) (Auto) 79.1 % (45.0-75.0) H Lymphocytes (%) (Auto) 11.6 % (20.0-45.0) L Monocytes (%) (Auto) 8.4 % (1.0-10.0) Eosinophils (%) (Auto) 0.6 % (0.0-3.0) Basophils (%) (Auto) 0.4 % (0.0-2.0) Sodium Level 144 MMOL/L (136-145) Potassium Level 3.7 MMOL/L (3.5-5.1) Chloride Level 109 MMOL/L (98-107) H Carbon Dioxide Level 28 MMOL/L (21-32) Anion Gap 7 mmol/L (5-15) Blood Urea Nitrogen 14 mg/dL (7-18) Creatinine 0.7 MG/DL (0.55-1.30) Estimat Glomerular Filtration Rate mL/min (>60) Glucose Level 95 MG/DL (74-106) Calcium Level 9.6 MG/DL (8.5-10.1) Current Medications Medications (Trade) Dose Ordered Sig/Ronaldo Route PRN Reason Start Time Stop Time Status Last Admin Dose Admin Acetaminophen (Tylenol) 650 mg Q6H PRN ORAL Mild Pain/Temp > 100.5 08/17/19 08:30 09/16/19 08:29 08/17/19 09:42 Albuterol/ Ipratropium (Albuterol/ Ipratropium) 3 ml Q4HRT PRN HHN Shortness of Breath 08/17/19 11:00 08/20/19 06:44 Ascorbic Acid (Vitamin C) 500 mg DAILY ORAL 08/17/19 09:00 09/14/19 08:59 08/17/19 09:41 Aspirin (Ecotrin) 81 mg DAILY ORAL 08/17/19 09:00 09/14/19 08:59 08/17/19 09:41 Atorvastatin Calcium (Lipitor) 10 mg BEDTIME ORAL 08/17/19 21:00 09/14/19 20:59 Cefepime HCl 2 gm/ Dextrose 55 ml @ 110 mls/hr Q12H IVPB 08/17/19 14:00 08/23/19 01:59 Dextrose (Dextrose 50%) 25 ml Q30M PRN IV Hypoglycemia 08/17/19 08:15 09/14/19 06:44 Dextrose (Dextrose 50%) 50 ml Q30M PRN IV Hypoglycemia 08/17/19 08:15 09/14/19 06:44 Digoxin (Lanoxin) 0.125 mg DAILY ORAL 08/17/19 09:00 09/14/19 08:59 08/17/19 09:41 Diltiazem HCl 125 mg/Dextrose 125 ml @ 0 mls/hr Q24H IV 08/17/19 09:00 09/16/19 08:59 Doxycycline Hyclate 100 mg/ Dextrose 110 ml @ 110 mls/hr Q12HR IV 08/17/19 09:00 08/22/19 07:59 08/17/19 09:40 Heparin Sodium (Porcine) (Heparin 5000 units/ml) 5,000 units EVERY 12 HOURS SUBQ 08/17/19 09:00 09/14/19 08:59 08/17/19 09:45 Insulin Aspart (NovoLOG) BEFORE MEALS AND HS SUBQ 08/17/19 11:30 09/14/19 11:29 Lactobacillus Acidophilus (Culturelle) 1 tab THREE TIMES A DAY ORAL 08/17/19 09:00 09/14/19 08:59 08/17/19 09:42 Metoprolol Tartrate (Lopressor) 12.5 mg Q12HR ORAL 08/17/19 09:00 09/16/19 08:59 08/17/19 09:42 Multivitamins (Multivitamins) 1 tab DAILY ORAL 08/17/19 09:00 09/14/19 08:59 08/17/19 09:42 Nitroglycerin (Ntg) 0.4 mg Q5M PRN SL CHEST PAIN 08/17/19 08:15 09/14/19 06:44 Pantoprazole (Protonix) 40 mg DAILY IVP 08/17/19 09:00 09/14/19 08:59 08/17/19 09:43 Terry Solorzano MD Aug 17, 2019 10:51
[2019-08-17] MEDS ORDERED: Albuterol/Ipratropium 3ml neb HHN PRN (11:00)
[2019-08-17] MEDS: Meropenem 1 GM in NS 55 ML IVPB SCH ×2 (12:17→20:27)
[2019-08-17] MEDS ORDERED: Cefepime HCl 2 GM in D5W 55 ML IVPB SCH (14:00)
--- NOTE | 2019-08-17 14:17 | Cardiology Report ---
APPROVED REPORT EKG Measurement Heart [id number] Sinus tachycardia with occasional premature ventricular complexes Nonspecific ST and T wave abnormality Abnormal ECG
[2019-08-17] MEDS ORDERED: Tubing IV Secondary IV ONE (14:23)
[2019-08-17] MEDS ORDERED: NS 275ml ONE (14:23)
--- NOTE | 2019-08-17 15:55 | Diagnostic Imaging Report ---
Indication: Shortness of breath Technique: One view of the chest Comparison: 08/15/2019 Findings: Inspiration is suboptimal. There are bilateral basilar atelectatic changes. There is again demonstrated evidence of a sizable left pleural effusion. There is probably some pleural fluid on the right as well. Findings are overall unchanged Impression: Unchanged, over one day, findings as above.
[2019-08-17] MEDS ORDERED: ROBITUSSIN COU237 M2 PO (19:58)
[2019-08-18] VITALS (24 sets, daily range): BP systolic 81–159; BP diastolic 48–124
--- NOTE | 2019-08-18 01:30 | Consultation ---
DATE OF CONSULTATION: 08/17/2019 CARDIOLOGY CONSULTATION CONSULTING PHYSICIAN: Smooth Wilson M.D. REQUESTING PHYSICIAN: Piero Lu M.D. REASON: Supraventricular tachyarrhythmias. HISTORY OF PRESENT ILLNESS: This is a 79-year-old female. She resides at a retirement facility. Two days ago, she was transferred to this emergency room with altered mentation and hypoxia. She was found to have signs of a healthcare-acquired pneumonia, urinary tract infection, and sepsis. She has had recurring episodes of sinus tachycardia. Reportedly early this morning, she had rapid supraventricular tachycardia and was transferred to the intensive care unit. She was to be started on a Cardizem drip. However, heart rate subsequently improved. The drip was not started. She has received doses of metoprolol and digoxin however. The patient is unable to give any reliable history. Records are reviewed. PAST MEDICAL HISTORY: Includes chronic obstructive pulmonary disease, diabetes mellitus, hypertension, congestive heart failure, hyperlipidemia, paroxysmal atrial fibrillation. ALLERGIES: Include infliximab. MEDICATIONS: Reviewed and reconciled. SOCIAL HISTORY: Prior smoker. No alcohol or substance abuse. PHYSICAL EXAMINATION: VITAL SIGNS: Blood pressure 112/49, pulse 101, respirations 19, and afebrile. NECK: Jugular venous pressure is slightly elevated. LUNGS: Bilateral breath sounds with rales. HEART: Regular rhythm. Rapid rate. Normal S1, S2 with no murmur. ABDOMEN: Soft. EXTREMITIES: There is trace dependent edema. LABORATORY AND DIAGNOSTIC DATA: Chest radiograph today revealed no interval change with bilateral atelectasis, left pleural effusion of moderate size, and small pleural effusion on the right. Urine culture is positive E. coli. Blood cultures are positive for Gram-negative organism. White count 7.4, hemoglobin 8.5. Sodium 144, potassium 3.7, bicarb 28, BUN 14, and creatinine 0.7. IMPRESSION: 1. Sepsis. 2. Urinary tract infection. 3. Healthcare-acquired pneumonia. 4. Paroxysmal supraventricular tachyarrhythmias. 5. Corrected hypokalemia. 6. History of hypertension. 7. Pleural effusion. PLAN: 1. Intensive care unit monitoring. 2. Respiratory hygiene. 3. Antimicrobials. 4. Recheck electrolytes, replace as needed. 5. DVT and stress ulcer prophylaxes. 6. Discontinue digoxin. 7. Advance beta-sandy for antianginal benefits and rate control. 8. Trend natriuretic peptide assay. Smooth Wilson M.D. DR: MAURY JOB#: [id number] CC:
[2019-08-18] MEDS: Meropenem 1 GM in NS 55 ML IVPB SCH ×3 (03:27→20:28)
[2019-08-18 06:04] LABS: BASOPHILS % (AUTO) 0.6 % (0.0-2.0); EOSINOPHILS % (AUTO) 0.5 % (0.0-3.0); HEMOGLOBIN 8.8 G/DL (12.0-16.0); LYMPHOCYTES % (AUTO) 17.9 % (20.0-45.0); MEAN CORPUSCULAR VOLUME 90 FL (80-99); MONOCYTES % (AUTO) 12.2 % (1.0-10.0); NEUTROPHILS % (AUTO) 68.8 % (45.0-75.0); PLATELET COUNT 194 K/UL (150-450); RED BLOOD COUNT 3.24 M/UL (4.20-5.40); RED CELL DISTRIBUTION WIDTH 17.3 % (11.6-14.8); WHITE BLOOD COUNT 5.6 K/UL (4.8-10.8)
[2019-08-18] MEDS: NovoLOG Insulin Flexpen SUBQ SCH ×4 (06:13→20:29)
[2019-08-18 07:08] LABS: ANION GAP 6 mmol/L (5-15); BLOOD UREA NITROGEN 10 mg/dL (7-18); CALCIUM 9.6 MG/DL (8.5-10.1); CARBON DIOXIDE 30 MMOL/L (21-32); CHLORIDE 110 MMOL/L (98-107); CREATININE 0.7 MG/DL (0.55-1.30); POTASSIUM 3.6 MMOL/L (3.5-5.1); SODIUM 146 MMOL/L (136-145)
[2019-08-18] MEDS: Ascorbic Acid 500mg tab ORAL SCH (08:35)
[2019-08-18] MEDS: Lactobacillus-GG tablet ORAL SCH ×3 (08:35→16:55)
[2019-08-18] MEDS: Pantoprazole Inj IVP SCH (08:35)
[2019-08-18] MEDS: Aspirin EC 81mg tab ORAL SCH (08:36)
[2019-08-18] MEDS: Metoprolol Tartrate 12.5mg TAB ORAL SCH ×2 (08:36→20:29)
[2019-08-18] MEDS: Heparin 5000 units/ml inj SUBQ SCH ×2 (08:38→20:30)
--- NOTE | 2019-08-18 10:36 | Infectious Diseases Prog Note ---
Assessment/Plan Assessment/Plan antibiotics : meropenem 08.17.19- A 1. e.coli sepsis 2. e.coli esbl UTI 3. pneumonia 4. leucocytosis resolved 5. diabetes mellitus 6. hypertension P 1. continue meropenem 8 more days 2. will follow up cultures Subjective ROS Limited/Unobtainable: Yes Allergies: Coded Allergies: INFLIXIMAB (Verified Allergy, Unknown, 08/15/19) Objective Vital Signs Last 24 Hour Vital Signs Date Time Temp Pulse Resp B/P (MAP) Pulse Ox O2 Delivery O2 Flow Rate FiO2 08/18/19 10:00 96 29 81/53 (62) 98 08/18/19 09:00 100 18 120/66 (84) 100 08/18/19 08:36 112 159/64 08/18/19 08:00 112 08/18/19 08:00 102 11 159/64 (95) 100 08/18/19 08:00 Nasal Cannula 2.0 08/18/19 07:00 115 24 137/64 (88) 97 08/18/19 06:00 102 17 137/71 (93) 100 08/18/19 05:00 105 15 114/51 (72) 99 08/18/19 04:00 106 08/18/19 04:00 Nasal Cannula 2.0 08/18/19 04:00 97.8 106 21 98/72 (81) 97 08/18/19 03:00 104 32 122/57 (78) 100 08/18/19 02:00 103 25 125/48 (73) 100 08/18/19 01:00 102 32 120/59 (79) 98 08/18/19 00:00 101 08/18/19 00:00 98.8 100 26 131/69 (89) 100 08/18/19 00:00 Nasal Cannula 2.0 08/17/19 23:00 100 33 116/60 (78) 100 08/17/19 22:00 98 25 132/97 (109) 95 08/17/19 21:00 103 27 111/69 (83) 92 08/17/19 20:27 115 140/76 08/17/19 20:00 99.2 115 24 111/64 (80) 94 08/17/19 20:00 Nasal Cannula 2.0 08/17/19 20:00 115 140/76 08/17/19 20:00 118 08/17/19 19:58 115 23 96 Nasal Cannula 2.0 28 08/17/19 19:00 119 26 140/76 (97) 91 08/17/19 18:00 115 25 129/69 (89) 100 08/17/19 17:00 118 32 139/81 (100) 97 08/17/19 16:00 98.7 110 17 130/70 (90) 95 08/17/19 16:00 104 08/17/19 16:00 Nasal Cannula 2.0 Nasal Cannula 2.0 08/17/19 15:00 107 20 135/70 (91) 99 08/17/19 14:00 107 20 137/71 (93) 99 08/17/19 13:00 98.7 101 19 112/49 (70) 100 08/17/19 12:00 102 23 100/63 (75) 100 08/17/19 12:00 Nasal Cannula 2.0 Nasal Cannula 2.0 08/17/19 12:00 102 08/17/19 11:00 105 23 116/65 (82) 96 Height (Feet): 5 Height (Inches): 3.00 Weight (Pounds): 154 Respiratory/Chest: lungs clear Cardiovascular: normal rate, regular rhythm, no gallop/murmur Abdomen: soft, non tender Extremities: no edema Laboratory Tests Test 08/18/19 05:20 White Blood Count 5.6 K/UL (4.8-10.8) Red Blood Count 3.24 M/UL (4.20-5.40) L Hemoglobin 8.8 G/DL (12.0-16.0) L Hematocrit 29.0 % (37.0-47.0) L Mean Corpuscular Volume 90 FL (80-99) Mean Corpuscular Hemoglobin 27.2 PG (27.0-31.0) Mean Corpuscular Hemoglobin Concent 30.4 G/DL (32.0-36.0) L Red Cell Distribution Width 17.3 % (11.6-14.8) H Platelet Count 194 K/UL (150-450) Mean Platelet Volume 6.7 FL (6.5-10.1) Neutrophils (%) (Auto) 68.8 % (45.0-75.0) Lymphocytes (%) (Auto) 17.9 % (20.0-45.0) L Monocytes (%) (Auto) 12.2 % (1.0-10.0) H Eosinophils (%) (Auto) 0.5 % (0.0-3.0) Basophils (%) (Auto) 0.6 % (0.0-2.0) Sodium Level 146 MMOL/L (136-145) H Potassium Level 3.6 MMOL/L (3.5-5.1) Chloride Level 110 MMOL/L (98-107) H Carbon Dioxide Level 30 MMOL/L (21-32) Anion Gap 6 mmol/L (5-15) Blood Urea Nitrogen 10 mg/dL (7-18) Creatinine 0.7 MG/DL (0.55-1.30) Estimat Glomerular Filtration Rate mL/min (>60) Glucose Level 89 MG/DL (74-106) Calcium Level 9.6 MG/DL (8.5-10.1) Magnesium Level 1.5 MG/DL (1.8-2.4) L Troponin I 0.003 ng/mL (0.000-0.056) Pro-B-Type Natriuretic Peptide 958 pg/mL (0-125) H Thyroid Stimulating Hormone (TSH) 0.780 uiU/mL (0.358-3.740) Current Medications Medications (Trade) Dose Ordered Sig/Ronaldo Route PRN Reason Start Time Stop Time Status Last Admin Dose Admin Acetaminophen (Tylenol) 650 mg Q6H PRN ORAL Mild Pain/Temp > 100.5 08/17/19 08:30 09/16/19 08:29 08/17/19 09:42 Albuterol/ Ipratropium (Albuterol/ Ipratropium) 3 ml Q4HRT PRN HHN Shortness of Breath 08/17/19 11:00 08/20/19 06:44 Ascorbic Acid (Vitamin C) 500 mg DAILY ORAL 08/17/19 09:00 09/14/19 08:59 08/18/19 08:35 Aspirin (Ecotrin) 81 mg DAILY ORAL 08/17/19 09:00 09/14/19 08:59 08/18/19 08:36 Atorvastatin Calcium (Lipitor) 10 mg BEDTIME ORAL 08/17/19 21:00 09/14/19 20:59 08/17/19 20:28 Dextrose (Dextrose 50%) 25 ml Q30M PRN IV Hypoglycemia 08/17/19 08:15 09/14/19 06:44 Dextrose (Dextrose 50%) 50 ml Q30M PRN IV Hypoglycemia 08/17/19 08:15 09/14/19 06:44 Heparin Sodium (Porcine) (Heparin 5000 units/ml) 5,000 units EVERY 12 HOURS SUBQ 08/17/19 09:00 09/14/19 08:59 08/18/19 08:38 Insulin Aspart (NovoLOG) BEFORE MEALS AND HS SUBQ 08/17/19 11:30 09/14/19 11:29 Lactobacillus Acidophilus (Culturelle) 1 tab THREE TIMES A DAY ORAL 08/17/19 09:00 09/14/19 08:59 08/18/19 08:35 Meropenem 1 gm/ Sodium Chloride 55 ml @ 110 mls/hr Q8H IVPB 08/17/19 12:00 08/22/19 11:59 08/18/19 03:27 Metoprolol Tartrate (Lopressor) 12.5 mg Q12HR ORAL 08/17/19 09:00 09/16/19 08:59 08/18/19 08:36 Multivitamins (Multivitamins) 1 tab DAILY ORAL 08/17/19 09:00 09/14/19 08:59 08/18/19 08:36 Nitroglycerin (Ntg) 0.4 mg Q5M PRN SL CHEST PAIN 08/17/19 08:15 09/14/19 06:44 Pantoprazole (Protonix) 40 mg DAILY IVP 08/17/19 09:00 09/14/19 08:59 08/18/19 08:35 Terry Solorzano MD Aug 18, 2019 10:36
[2019-08-18] MEDS ORDERED: LORazepam Inj 2mg/ml 1ml IM PRN (17:15)
--- NOTE | 2019-08-18 17:29 | General Progress Note ---
Assessment/Plan Problem List: (1) Diabetes ICD Codes: E11.9 - Type 2 diabetes mellitus without complications SNOMED: 48541467 (2) Hypertension ICD Codes: I10 - Essential (primary) hypertension SNOMED: 98289641 (3) Anemia ICD Codes: D64.9 - Anemia, unspecified SNOMED: 151290331 (4) UTI (urinary tract infection) ICD Codes: N39.0 - Urinary tract infection, site not specified SNOMED: 39179013 (5) Tachycardia ICD Codes: R00.0 - Tachycardia, unspecified SNOMED: 1094068 (6) Pneumonia ICD Codes: J18.9 - Pneumonia, unspecified organism SNOMED: 227552010 (7) Bacteremia ICD Codes: R78.81 - Bacteremia SNOMED: 0872703 Status: stable Assessment/Plan: monitor hr/tele b-blockade iv abx follow up cultures dvt/stress ulcer prophylaxis Subjective ROS Limited/Unobtainable: No Constitutional: Reports: malaise, weakness HEENT: Reports: no symptoms Cardiovascular: Reports: palpitations Respiratory: Reports: no symptoms Gastrointestinal/Abdominal: Reports: no symptoms Genitourinary: Reports: no symptoms Neurologic/Psychiatric: Reports: no symptoms Endocrine: Reports: no symptoms Hematologic/Lymphatic: Reports: no symptoms Allergies: Coded Allergies: INFLIXIMAB (Verified Allergy, Unknown, 08/15/19) All Systems: reviewed and negative except above Subjective no complaints. HR better controlled. no fever or chills. denies sob. come palpitations. no cp Objective Last 24 Hour Vital Signs Date Time Temp Pulse Resp B/P (MAP) Pulse Ox O2 Delivery O2 Flow Rate FiO2 08/18/19 17:00 115 18 102/55 (71) 100 08/18/19 16:00 118 08/18/19 16:00 Nasal Cannula 2.0 08/18/19 16:00 98.0 115 15 99/50 (66) 99 08/18/19 15:00 113 28 133/72 (92) 95 08/18/19 14:00 106 22 136/65 (88) 94 08/18/19 13:00 95 19 137/73 (94) 100 08/18/19 12:00 94 08/18/19 12:00 Nasal Cannula 2.0 08/18/19 12:00 98.5 96 21 139/83 (101) 100 08/18/19 11:00 85 22 124/67 (86) 100 08/18/19 10:00 96 29 81/53 (62) 98 08/18/19 09:00 100 18 120/66 (84) 100 08/18/19 08:36 112 159/64 08/18/19 08:00 112 08/18/19 08:00 98.2 102 11 159/64 (95) 100 08/18/19 08:00 Nasal Cannula 2.0 08/18/19 07:00 115 24 137/64 (88) 97 08/18/19 06:00 102 17 137/71 (93) 100 08/18/19 05:00 105 15 114/51 (72) 99 08/18/19 04:00 106 08/18/19 04:00 Nasal Cannula 2.0 08/18/19 04:00 97.8 106 21 98/72 (81) 97 08/18/19 03:00 104 32 122/57 (78) 100 08/18/19 02:00 103 25 125/48 (73) 100 08/18/19 01:00 102 32 120/59 (79) 98 08/18/19 00:00 101 08/18/19 00:00 98.8 100 26 131/69 (89) 100 08/18/19 00:00 Nasal Cannula 2.0 08/17/19 23:00 100 33 116/60 (78) 100 08/17/19 22:00 98 25 132/97 (109) 95 08/17/19 21:00 103 27 111/69 (83) 92 08/17/19 20:27 115 140/76 08/17/19 20:00 99.2 115 24 111/64 (80) 94 08/17/19 20:00 Nasal Cannula 2.0 08/17/19 20:00 115 140/76 08/17/19 20:00 118 08/17/19 19:58 115 23 96 Nasal Cannula 2.0 28 08/17/19 19:00 119 26 140/76 (97) 91 08/17/19 18:00 115 25 129/69 (89) 100 Intake and Output 08/17/19 08/18/19 19:00 07:00 Intake Total 770 ml 455 ml Output Total 860 ml 910 ml Balance -90 ml -455 ml Intake Oral 440 ml 345 ml IV Total 330 ml 110 ml Output Urine Total 860 ml 910 ml # Bowel Movements 4 1 Laboratory Tests 08/18/19 05:20: White Blood Count 5.6, Red Blood Count 3.24L, Hemoglobin 8.8L, Hematocrit 29.0L , Mean Corpuscular Volume 90, Mean Corpuscular Hemoglobin 27.2, Mean Corpuscular Hemoglobin Concent 30.4L, Red Cell Distribution Width 17.3H, Platelet Count 194, Mean Platelet Volume 6.7, Neutrophils (%) (Auto) 68.8, Lymphocytes (%) (Auto) 17.9L, Monocytes (%) (Auto) 12.2H, Eosinophils (%) (Auto ) 0.5, Basophils (%) (Auto) 0.6, Sodium Level 146H, Potassium Level 3.6, Chloride Level 110H, Carbon Dioxide Level 30, Anion Gap 6, Blood Urea Nitrogen 10, Creatinine 0.7, Estimat Glomerular Filtration Rate , Glucose Level 89, Calcium Level 9.6, Magnesium Level 1.5L, Troponin I 0.003, Pro-B-Type Natriuretic Peptide 958H, Thyroid Stimulating Hormone (TSH) 0.780 Height (Feet): 5 Height (Inches): 3.00 Weight (Pounds): 154 Objective General Appearance: WD/WN, alert Neck: supple Cardiovascular: regular rhythm, tachycardia Respiratory/Chest: chest wall non-tender, lungs clear, normal breath sounds, no respiratory distress Abdomen: normal bowel sounds, non tender, soft, no organomegaly Edema: 1+ Leg (L), 1+ Leg (R) 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
--- NOTE | 2019-08-18 19:02 | Pulmonolgy Critical Care Note ---
Critical Care - Asmt/Plan Assessment/Plan: Pulmonary CCM Progress Note Assessment/Plan Impression: Pneumonia Urinary tract infection Possible Sepsis Paroxysmal atrial fibrillation Asthma/COPD Congestive Heart Failure Diabetes Hypertension Hyperlipidemia Generalized weakness Tachyarrythmia Plan IV Antibiotics ID evaluation noted O2 PRN HHN with albuterol cardizem drip cards evaluation diurese as able CXR repeat Aspiration precautions ST follow up monitor for change critical reattempt venous US medications/laboratory data/nursing notes/ICU care reviewed in detail note reviewed and edited care discussed with RN and RT ICU time spent 40 minutes Subjective Allergies: Coded Allergies: INFLIXIMAB (Verified Allergy, Unknown, 08/15/19) Subjective care noted noted congestion on oxygen could not lay flat for venous US tachyarrythmia improved Objective Vital Signs Noted Objective WDWN on oxygen mild distress reduced breath sounds bilaterally with some rhonchi S1S2RR tachy without MRG NABS nontender no HSM no CC noted edema- pitting nonfocal Microbiology Date/Time Source Procedure Growth Status 08/15/19 01:52 Blood Blood Culture - Preliminary Gram Negative Bacillus 1 Resulted 08/15/19 01:00 Blood Blood Culture - Preliminary Gram Negative Bacillus 1 Resulted 08/15/19 03:00 Urine,Clean Catch Urine Culture - Final Escherichia Coli - Esbl Complete 08/15/19 02:37 Rectum VRE Culture - Final Enterococcus Faecalis - Vre Complete 08/15/19 02:37 Rectum - Final NO CARBAPENEM-RESISTANT ENTEROBACTERI... Complete Laboratory Tests 08/17/19 05:56: White Blood Count 7.4, Red Blood Count 3.15L, Hemoglobin 8.5L, Hematocrit 28.1L , Mean Corpuscular Volume 89, Mean Corpuscular Hemoglobin 27.2, Mean Corpuscular Hemoglobin Concent 30.4L, Red Cell Distribution Width 17.2H, Platelet Count 173, Mean Platelet Volume 5.8L, Neutrophils (%) (Auto) 79.1H, Lymphocytes (%) (Auto) 11.6L, Monocytes (%) (Auto) 8.4, Eosinophils (%) (Auto) 0.6, Basophils (%) (Auto) 0.4, Sodium Level 144, Potassium Level 3.7, Chloride Level 109H, Carbon Dioxide Level 28, Anion Gap 7, Blood Urea Nitrogen 14, Creatinine 0.7, Estimat Glomerular Filtration Rate , Glucose Level 95, Calcium Level 9.6 Current Medications Medications (Trade) Dose Ordered Sig/Ronaldo Route PRN Reason Start Time Stop Time Status Last Admin Dose Admin Acetaminophen (Tylenol) 650 mg Q6H PRN ORAL Mild Pain/Temp > 100.5 08/17/19 08:30 09/16/19 08:29 Albuterol/ Ipratropium (Albuterol/ Ipratropium) 3 ml Q4HRT PRN HHN Shortness of Breath 08/17/19 11:00 08/20/19 06:44 Ascorbic Acid (Vitamin C) 500 mg DAILY ORAL 08/17/19 09:00 09/14/19 08:59 Aspirin (Ecotrin) 81 mg DAILY ORAL 08/17/19 09:00 09/14/19 08:59 Atorvastatin Calcium (Lipitor) 10 mg BEDTIME ORAL 08/17/19 21:00 09/14/19 20:59 Cefepime HCl 2 gm/ Dextrose 55 ml @ 110 mls/hr Q12H IVPB 08/17/19 14:00 08/23/19 01:59 Dextrose (Dextrose 50%) 25 ml Q30M PRN IV Hypoglycemia 08/17/19 08:15 09/14/19 06:44 Dextrose (Dextrose 50%) 50 ml Q30M PRN IV Hypoglycemia 08/17/19 08:15 09/14/19 06:44 Digoxin (Lanoxin) 0.125 mg DAILY ORAL 08/17/19 09:00 09/14/19 08:59 Diltiazem HCl 125 mg/Dextrose 125 ml @ 0 mls/hr Q24H IV 08/17/19 09:00 09/16/19 08:59 Doxycycline Hyclate 100 mg/ Dextrose 110 ml @ 110 mls/hr Q12HR IV 08/17/19 09:00 08/22/19 07:59 Heparin Sodium (Porcine) (Heparin 5000 units/ml) 5,000 units EVERY 12 HOURS SUBQ 08/17/19 09:00 09/14/19 08:59 Insulin Aspart (NovoLOG) BEFORE MEALS AND HS SUBQ 08/17/19 11:30 09/14/19 11:29 Lactobacillus Acidophilus (Culturelle) 1 tab THREE TIMES A DAY ORAL 08/17/19 09:00 09/14/19 08:59 Metoprolol Tartrate (Lopressor) 12.5 mg Q12HR ORAL 08/17/19 09:00 11/7/19 08:59 Multivitamins (Multivitamins) 1 tab DAILY ORAL 08/17/19 09:00 09/14/19 08:59 Nitroglycerin (Ntg) 0.4 mg Q5M PRN SL CHEST PAIN 08/17/19 08:15 09/14/19 06:44 Pantoprazole (Protonix) 40 mg DAILY IVP 08/17/19 09:00 09/14/19 08:59 Critical Care - Objective Last 24 Hour Vital Signs Date Time Temp Pulse Resp B/P (MAP) Pulse Ox O2 Delivery O2 Flow Rate FiO2 08/18/19 18:00 123 26 97/60 (72) 95 08/18/19 17:00 115 18 102/55 (71) 100 08/18/19 16:00 118 08/18/19 16:00 Nasal Cannula 2.0 08/18/19 16:00 98.0 115 15 99/50 (66) 99 08/18/19 15:00 113 28 133/72 (92) 95 08/18/19 14:00 106 22 136/65 (88) 94 08/18/19 13:00 95 19 137/73 (94) 100 08/18/19 12:00 94 08/18/19 12:00 Nasal Cannula 2.0 08/18/19 12:00 98.5 96 21 139/83 (101) 100 08/18/19 11:00 85 22 124/67 (86) 100 08/18/19 10:00 96 29 81/53 (62) 98 08/18/19 09:00 100 18 120/66 (84) 100 08/18/19 08:36 112 159/64 08/18/19 08:00 112 08/18/19 08:00 98.2 102 11 159/64 (95) 100 08/18/19 08:00 Nasal Cannula 2.0 08/18/19 07:00 115 24 137/64 (88) 97 08/18/19 06:00 102 17 137/71 (93) 100 08/18/19 05:00 105 15 114/51 (72) 99 08/18/19 04:00 106 08/18/19 04:00 Nasal Cannula 2.0 08/18/19 04:00 97.8 106 21 98/72 (81) 97 08/18/19 03:00 104 32 122/57 (78) 100 08/18/19 02:00 103 25 125/48 (73) 100 08/18/19 01:00 102 32 120/59 (79) 98 08/18/19 00:00 101 08/18/19 00:00 98.8 100 26 131/69 (89) 100 08/18/19 00:00 Nasal Cannula 2.0 08/17/19 23:00 100 33 116/60 (78) 100 08/17/19 22:00 98 25 132/97 (109) 95 08/17/19 21:00 103 27 111/69 (83) 92 08/17/19 20:27 115 140/76 08/17/19 20:00 99.2 115 24 111/64 (80) 94 08/17/19 20:00 Nasal Cannula 2.0 08/17/19 20:00 115 140/76 08/17/19 20:00 118 08/17/19 19:58 115 23 96 Nasal Cannula 2.0 28 Accucheck: 115 Critical Care - Subjective ROS Limited/Unobtainable: No FI02: 28 Sputum Amount: Moderate I&O: Intake and Output 08/17/19 08/18/19 19:00 07:00 Intake Total 770 ml 455 ml Output Total 860 ml 910 ml Balance -90 ml -455 ml Intake Oral 440 ml 345 ml IV Total 330 ml 110 ml Output Urine Total 860 ml 910 ml # Bowel Movements 4 1 Smooth Tim MD Aug 18, 2019 19:02
--- NOTE | 2019-08-18 21:15 | Consultation ---
DATE OF CONSULTATION: 08/18/2019 HISTORY OF PRESENT ILLNESS: This is a 79-year-old female, who has been admitted to the hospital for pneumonia. The patient is currently in the ICU. The patient is [place]an speaking only. The nurse translated for The patient is confused, disoriented, severely agitated, yelling, and screaming. Per staff, she has been yelling all day. She is having memory impairment and not able to be engaged. She has no insight or judgment into her current medical condition. The patient is unable to understand, process, communicate, nor appreciate the information given to her in regards to her medical condition. PAST PSYCHIATRY HISTORY: Significant for dementia. PAST MEDICAL HISTORY: Hypertension, hyperlipidemia, arthritis, and pneumonia. ALLERGIES: No known drug allergies. SUBSTANCE ABUSE HISTORY: No known history of illicit drug use or alcohol. MENTAL STATUS EXAMINATION: The patient is alert, disoriented, confused, and uncooperative with the examination. Mood is agitated. Affect is blunted. Congruent with mood. Thought process is disorganized. Thought content, positive for delusions. Memory, concentration, and attention is impaired. Insight and judgment is impaired. ASSESSMENT: [place] I Acute metabolic encephalopathy. Dementia with behavior disturbance. [place] II Deferred. [place] III Pneumonia. [place] IV [id number]. [place] V 20. PLAN: 1. We will start the patient on Seroquel. 2. Start the patient on Ativan p.r.n. medication. 3. The patient lacks capacity to make decision. Tal Kwong M.D. DR: KLEBER JOB#: [id number] CC: ALEXIS
[2019-08-19] VITALS (24 sets, daily range): BP systolic 91–150; BP diastolic 38–91
--- NOTE | 2019-08-19 01:01 | Progress Note ---
DATE: 08/18/2019 CARDIOLOGY PROGRESS NOTE SUBJECTIVE: The patient has no shortness of breath. No chest pain. Sinus tachycardia persists. No SVT. OBJECTIVE: VITAL SIGNS: Blood pressure 102/55, pulse 115, and respirations 18. LUNGS: Bilateral breath sounds. HEART: Regular rhythm. Rapid rate. Normal S1, S2. ABDOMEN: Soft. EXTREMITIES: No edema. LABORATORY DATA: White count 5.6 and hemoglobin 8.8. Troponin negative. Pro-natriuretic peptide 950. Magnesium 1.5. Potassium 3.6, sodium 146, BUN 10, and creatinine 0.7. IMPRESSION: 1. Sepsis. 2. Urinary tract infection. 3. Paroxysmal SVT. 4. Secondary sinus tachycardia. 5. Hypomagnesemia. 6. Pleural effusion. 7. History of hypertension. 8. Healthcare-acquired pneumonia. 9. Dehydration. 10. Hypernatremia. PLAN: 1. Advance beta-sandy. 2. Hypotonic IV fluids. 3. IV magnesium. 4. Antimicrobials. 5. Respiratory hygiene. 6. Trend natriuretic peptide assay. Smooth Wilson M.D. DR: DAYNA JOB#: [id number] CC:
[2019-08-19] MEDS: Meropenem 1 GM in NS 55 ML IVPB SCH ×3 (03:42→20:37)
[2019-08-19 05:40] LABS: BASOPHILS % (AUTO) 0.7 % (0.0-2.0); EOSINOPHILS % (AUTO) 0.6 % (0.0-3.0); HEMATOCRIT 31.2 % (37.0-47.0); HEMOGLOBIN 9.6 G/DL (12.0-16.0); LYMPHOCYTES % (AUTO) 23.4 % (20.0-45.0); MEAN CORPUSCULAR VOLUME 89 FL (80-99); MONOCYTES % (AUTO) 13.4 % (1.0-10.0); NEUTROPHILS % (AUTO) 61.8 % (45.0-75.0); PLATELET COUNT 201 K/UL (150-450); RED BLOOD COUNT 3.52 M/UL (4.20-5.40); RED CELL DISTRIBUTION WIDTH 17.3 % (11.6-14.8); WHITE BLOOD COUNT 4.6 K/UL (4.8-10.8)
[2019-08-19] MEDS: NovoLOG Insulin Flexpen SUBQ SCH ×4 (05:57→20:41)
[2019-08-19 06:16] LABS: ALANINE AMINOTRANSFERASE 22 U/L (12-78); ALBUMIN 2.2 G/DL (3.4-5.0); ALBUMIN/GLOBULIN RATIO 0.6 (1.0-2.7); ALKALINE PHOSPHATASE 89 U/L (46-116); ANION GAP 4 mmol/L (5-15); ASPARTATE AMINO TRANSFERASE 26 U/L (15-37); BILIRUBIN,TOTAL 0.4 MG/DL (0.2-1.0); BLOOD UREA NITROGEN 7 mg/dL (7-18); CALCIUM 10.1 MG/DL (8.5-10.1); CARBON DIOXIDE 33 MMOL/L (21-32); CHLORIDE 108 MMOL/L (98-107); CREATININE 0.6 MG/DL (0.55-1.30); POTASSIUM 3.7 MMOL/L (3.5-5.1); SODIUM 145 MMOL/L (136-145)
--- NOTE | 2019-08-19 07:42 | General Progress Note ---
Assessment/Plan Problem List: (1) Diabetes ICD Codes: E11.9 - Type 2 diabetes mellitus without complications SNOMED: 56737416 (2) Hypertension ICD Codes: I10 - Essential (primary) hypertension SNOMED: 48999043 (3) Anemia ICD Codes: D64.9 - Anemia, unspecified SNOMED: 035927131 (4) UTI (urinary tract infection) ICD Codes: N39.0 - Urinary tract infection, site not specified SNOMED: 38026906 (5) Tachycardia ICD Codes: R00.0 - Tachycardia, unspecified SNOMED: 0847278 (6) Pneumonia ICD Codes: J18.9 - Pneumonia, unspecified organism SNOMED: 305469222 (7) Bacteremia ICD Codes: R78.81 - Bacteremia SNOMED: 3963482 Status: stable Assessment/Plan: monitor hr/tele b-blockade iv abx per id follow up cultures dvt/stress ulcer prophylaxis transfer lyndsay Subjective ROS Limited/Unobtainable: No Constitutional: Reports: malaise, weakness HEENT: Reports: no symptoms Cardiovascular: Reports: no symptoms Respiratory: Reports: cough Gastrointestinal/Abdominal: Reports: no symptoms Genitourinary: Reports: no symptoms Neurologic/Psychiatric: Reports: pre-existing deficit Endocrine: Reports: no symptoms Hematologic/Lymphatic: Reports: anemia Allergies: Coded Allergies: INFLIXIMAB (Verified Allergy, Unknown, 08/15/19) All Systems: reviewed and negative except above Subjective no complaints. HR better controlled. no fever or chills. denies sob. agitated at times. Objective Last 24 Hour Vital Signs Date Time Temp Pulse Resp B/P (MAP) Pulse Ox O2 Delivery O2 Flow Rate FiO2 08/19/19 07:00 98 20 110/59 (76) 100 08/19/19 06:00 108 11 150/78 (102) 100 08/19/19 05:00 99 21 128/72 (90) 100 08/19/19 04:02 112 08/19/19 04:00 Nasal Cannula 2.0 08/19/19 04:00 97.7 99 23 146/91 (109) 100 08/19/19 03:00 96 21 140/69 (92) 100 08/19/19 02:00 109 24 132/65 (87) 96 08/19/19 01:00 102 23 130/60 (83) 97 08/19/19 00:00 Nasal Cannula 2.0 08/19/19 00:00 97.8 106 25 113/74 (87) 99 08/18/19 23:35 109 08/18/19 23:00 104 26 137/72 (93) 100 08/18/19 22:00 104 20 137/124 (128) 100 08/18/19 21:00 111 17 128/110 (116) 99 08/18/19 20:29 133 125/66 08/18/19 20:05 128 08/18/19 20:00 Nasal Cannula 2.0 08/18/19 20:00 97.7 121 16 125/66 (85) 96 08/18/19 19:16 124 21 98 Nasal Cannula 2.0 28 08/18/19 19:16 98 Nasal Cannula 2.0 28 08/18/19 19:00 129 27 100/57 (71) 96 08/18/19 18:00 123 26 97/60 (72) 95 08/18/19 17:00 115 18 102/55 (71) 100 08/18/19 16:00 118 08/18/19 16:00 Nasal Cannula 2.0 08/18/19 16:00 98.0 115 15 99/50 (66) 99 08/18/19 15:00 113 28 133/72 (92) 95 08/18/19 14:00 106 22 136/65 (88) 94 08/18/19 13:00 95 19 137/73 (94) 100 08/18/19 12:00 94 08/18/19 12:00 Nasal Cannula 2.0 08/18/19 12:00 98.5 96 21 139/83 (101) 100 08/18/19 11:00 85 22 124/67 (86) 100 08/18/19 10:00 96 29 81/53 (62) 98 08/18/19 09:00 100 18 120/66 (84) 100 08/18/19 08:36 112 159/64 08/18/19 08:00 112 08/18/19 08:00 98.2 102 11 159/64 (95) 100 08/18/19 08:00 Nasal Cannula 2.0 Intake and Output 08/18/19 08/19/19 18:59 06:59 Intake Total 115 ml 803.75 ml Output Total 1175 ml 1598 ml Balance -1060 ml -794.25 ml Intake Oral 60 ml 250 ml IV Total 55 ml 553.75 ml Output Urine Total 1175 ml 1598 ml Laboratory Tests 08/19/19 05:01: White Blood Count 4.6L, Red Blood Count 3.52L, Hemoglobin 9.6L, Hematocrit 31.2L , Mean Corpuscular Volume 89, Mean Corpuscular Hemoglobin 27.3, Mean Corpuscular Hemoglobin Concent 30.8L, Red Cell Distribution Width 17.3H, Platelet Count 201, Mean Platelet Volume 5.1L, Neutrophils (%) (Auto) 61.8, Lymphocytes (%) (Auto) 23.4, Monocytes (%) (Auto) 13.4H, Eosinophils (%) (Auto) 0.6, Basophils (%) (Auto) 0.7, Sodium Level 145, Potassium Level 3.7, Chloride Level 108H, Carbon Dioxide Level 33H, Anion Gap 4L, Blood Urea Nitrogen 7, Creatinine 0.6, Estimat Glomerular Filtration Rate , Glucose Level 102, Calcium Level 10.1, Magnesium Level 2.7H, Total Bilirubin 0.4, Aspartate Amino Transf ( AST/SGOT) 26, Alanine Aminotransferase (ALT/SGPT) 22, Alkaline Phosphatase 89, Pro-B-Type Natriuretic Peptide 730H, Total Protein 6.0L, Albumin 2.2L, Globulin 3.8, Albumin/Globulin Ratio 0.6L Height (Feet): 5 Height (Inches): 3.00 Weight (Pounds): 146 Objective General Appearance: WD/WN, alert Neck: supple Cardiovascular: regular rhythm, tachycardia Respiratory/Chest: chest wall non-tender, lungs clear, normal breath sounds, no respiratory distress Abdomen: normal bowel sounds, non tender, soft, no organomegaly Edema: 1+ Leg (L), 1+ Leg (R) Neurologic: taxation consultant II-XII grossly normal, no motor/sensory deficits, alert, oriented x 3, responsive Carmine Krishna MD Aug 19, 2019 07:42
--- NOTE | 2019-08-19 08:16 | Pulmonology Progress Note ---
Assessment/Plan Assessment/Plan Impression: Pneumonia Urinary tract infection + Sepsis + blood cultures Paroxysmal atrial fibrillation Asthma/COPD Congestive Heart Failure Diabetes Hypertension Hyperlipidemia Generalized weakness Tachyarrythmia Protein calorie malnutrition acute encephalopathy Plan IV Antibiotics ID evaluation noted O2 PRN HHN with albuterol cardiology noted diurese as able CXR repeat- and monitor Aspiration precautions ST follow up monitor for change critical at present still needs ICU care monitor protein levels monitor skin exam medications/laboratory data/nursing notes/ICU care reviewed in detail note reviewed and edited care discussed with RN and RT ICU time spent 38 minutes Subjective Allergies: Coded Allergies: INFLIXIMAB (Verified Allergy, Unknown, 08/15/19) Subjective care noted noted congestion on oxygen negative venous US ICU care reviewed Objective Last 24 Hour Vital Signs Date Time Temp Pulse Resp B/P (MAP) Pulse Ox O2 Delivery O2 Flow Rate FiO2 08/19/19 07:30 100 Nasal Cannula 2.0 28 08/19/19 07:30 101 21 100 Nasal Cannula 2.0 28 08/19/19 07:00 98 20 110/59 (76) 100 08/19/19 06:00 108 11 150/78 (102) 100 08/19/19 05:00 99 21 128/72 (90) 100 08/19/19 04:02 112 08/19/19 04:00 Nasal Cannula 2.0 08/19/19 04:00 97.7 99 23 146/91 (109) 100 08/19/19 03:00 96 21 140/69 (92) 100 08/19/19 02:00 109 24 132/65 (87) 96 08/19/19 01:00 102 23 130/60 (83) 97 08/19/19 00:00 Nasal Cannula 2.0 08/19/19 00:00 97.8 106 25 113/74 (87) 99 08/18/19 23:35 109 08/18/19 23:00 104 26 137/72 (93) 100 08/18/19 22:00 104 20 137/124 (128) 100 08/18/19 21:00 111 17 128/110 (116) 99 08/18/19 20:29 133 125/66 08/18/19 20:05 128 08/18/19 20:00 Nasal Cannula 2.0 08/18/19 20:00 97.7 121 16 125/66 (85) 96 08/18/19 19:16 124 21 98 Nasal Cannula 2.0 28 08/18/19 19:16 98 Nasal Cannula 2.0 28 08/18/19 19:00 129 27 100/57 (71) 96 08/18/19 18:00 123 26 97/60 (72) 95 08/18/19 17:00 115 18 102/55 (71) 100 08/18/19 16:00 118 08/18/19 16:00 Nasal Cannula 2.0 08/18/19 16:00 98.0 115 15 99/50 (66) 99 08/18/19 15:00 113 28 133/72 (92) 95 08/18/19 14:00 106 22 136/65 (88) 94 08/18/19 13:00 95 19 137/73 (94) 100 08/18/19 12:00 94 08/18/19 12:00 Nasal Cannula 2.0 08/18/19 12:00 98.5 96 21 139/83 (101) 100 08/18/19 11:00 85 22 124/67 (86) 100 08/18/19 10:00 96 29 81/53 (62) 98 08/18/19 09:00 100 18 120/66 (84) 100 08/18/19 08:36 112 159/64 Intake and Output 08/18/19 08/19/19 18:59 06:59 Intake Total 115 ml 803.75 ml Output Total 1175 ml 1598 ml Balance -1060 ml -794.25 ml Intake Oral 60 ml 250 ml IV Total 55 ml 553.75 ml Output Urine Total 1175 ml 1598 ml Objective WDWN on oxygen mild distress reduced breath sounds bilaterally with scattered rhonchi S1S2RR tachy without MRG NABS nontender no HSM no CC noted edema- pitting nonfocal weak overall Laboratory Tests 08/19/19 05:01: White Blood Count 4.6L, Red Blood Count 3.52L, Hemoglobin 9.6L, Hematocrit 31.2L , Mean Corpuscular Volume 89, Mean Corpuscular Hemoglobin 27.3, Mean Corpuscular Hemoglobin Concent 30.8L, Red Cell Distribution Width 17.3H, Platelet Count 201, Mean Platelet Volume 5.1L, Neutrophils (%) (Auto) 61.8, Lymphocytes (%) (Auto) 23.4, Monocytes (%) (Auto) 13.4H, Eosinophils (%) (Auto) 0.6, Basophils (%) (Auto) 0.7, Sodium Level 145, Potassium Level 3.7, Chloride Level 108H, Carbon Dioxide Level 33H, Anion Gap 4L, Blood Urea Nitrogen 7, Creatinine 0.6, Estimat Glomerular Filtration Rate , Glucose Level 102, Calcium Level 10.1, Magnesium Level 2.7H, Total Bilirubin 0.4, Aspartate Amino Transf ( AST/SGOT) 26, Alanine Aminotransferase (ALT/SGPT) 22, Alkaline Phosphatase 89, Pro-B-Type Natriuretic Peptide 730H, Total Protein 6.0L, Albumin 2.2L, Globulin 3.8, Albumin/Globulin Ratio 0.6L Current Medications Medications (Trade) Dose Ordered Sig/Ronaldo Route PRN Reason Start Time Stop Time Status Last Admin Dose Admin Acetaminophen (Tylenol) 650 mg Q6H PRN ORAL Mild Pain/Temp > 100.5 08/17/19 08:30 09/16/19 08:29 08/18/19 14:24 Albuterol/ Ipratropium (Albuterol/ Ipratropium) 3 ml Q4HRT PRN HHN Shortness of Breath 08/17/19 11:00 08/20/19 06:44 Ascorbic Acid (Vitamin C) 500 mg DAILY ORAL 08/17/19 09:00 09/14/19 08:59 08/18/19 08:35 Aspirin (Ecotrin) 81 mg DAILY ORAL 08/17/19 09:00 09/14/19 08:59 08/18/19 08:36 Atorvastatin Calcium (Lipitor) 10 mg BEDTIME ORAL 08/17/19 21:00 09/14/19 20:59 08/18/19 20:29 Dextrose (Dextrose 50%) 25 ml Q30M PRN IV Hypoglycemia 08/17/19 08:15 09/14/19 06:44 Dextrose (Dextrose 50%) 50 ml Q30M PRN IV Hypoglycemia 08/17/19 08:15 09/14/19 06:44 Heparin Sodium (Porcine) (Heparin 5000 units/ml) 5,000 units EVERY 12 HOURS SUBQ 08/17/19 09:00 09/14/19 08:59 08/18/19 20:30 Insulin Aspart (NovoLOG) BEFORE MEALS AND HS SUBQ 08/17/19 11:30 11/5/19 11:29 Lactobacillus Acidophilus (Culturelle) 1 tab THREE TIMES A DAY ORAL 08/17/19 09:00 09/14/19 08:59 08/18/19 12:54 Lorazepam (Ativan 2mg/ml 1ml) 1 mg Q4H PRN IM For Anxiety 08/18/19 17:15 08/25/19 17:14 Meropenem 1 gm/ Sodium Chloride 55 ml @ 110 mls/hr Q8H IVPB 08/17/19 12:00 08/22/19 11:59 08/19/19 03:42 Metoprolol Tartrate (Lopressor) 25 mg Q12HR ORAL 08/19/19 09:00 09/18/19 08:59 Multivitamins (Multivitamins) 1 tab DAILY ORAL 08/17/19 09:00 09/14/19 08:59 08/18/19 08:36 Nitroglycerin (Ntg) 0.4 mg Q5M PRN SL CHEST PAIN 08/17/19 08:15 09/14/19 06:44 Pantoprazole (Protonix) 40 mg DAILY IVP 08/17/19 09:00 09/14/19 08:59 08/18/19 08:35 Quetiapine Fumarate (SEROquel) 25 mg TID ORAL 08/18/19 18:00 09/17/19 17:59 08/18/19 17:16 Sodium Chloride 1,000 ml @ 75 mls/hr [id number] IV 08/18/19 23:45 09/17/19 23:44 08/19/19 00:05 Piero Lu MD Aug 19, 2019 08:16
[2019-08-19] MEDS: Heparin 5000 units/ml inj SUBQ SCH ×3 (09:00→20:40)
[2019-08-19] MEDS: Metoprolol Tartrate 12.5mg TAB ORAL SCH ×3 (09:00→17:56)
[2019-08-19] MEDS: Pantoprazole Inj IVP SCH ×2 (09:00→09:56)
[2019-08-19] MEDS: Ascorbic Acid 500mg tab ORAL SCH ×2 (09:55→10:15)
[2019-08-19] MEDS: Aspirin EC 81mg tab ORAL SCH ×2 (09:56→10:13)
[2019-08-19] MEDS: Lactobacillus-GG tablet ORAL SCH ×5 (09:56→17:41)
--- NOTE | 2019-08-19 10:11 | Infectious Diseases Prog Note ---
Assessment/Plan Assessment/Plan A 1. E.coli sepsis 2. E.coli esbl UTI 3. pneumonia/ atelectasis 4. leucocytosis resolved 5. diabetes mellitus 6. 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 Anemia P 1. continue meropenem 7 more days 2. will follow up cultures Subjective ROS Limited/Unobtainable: Yes Constitutional: Reports: no symptoms Respiratory: Reports: no symptoms Gastrointestinal/Abdominal: Reports: no symptoms Genitourinary: Reports: no symptoms Allergies: Coded Allergies: INFLIXIMAB (Verified Allergy, Unknown, 08/15/19) Objective Vital Signs Last 24 Hour Vital Signs Date Time Temp Pulse Resp B/P (MAP) Pulse Ox O2 Delivery O2 Flow Rate FiO2 08/19/19 09:55 122 143/80 08/19/19 07:30 100 Nasal Cannula 2.0 28 08/19/19 07:30 101 21 100 Nasal Cannula 2.0 28 08/19/19 07:00 98 20 110/59 (76) 100 08/19/19 06:00 108 11 150/78 (102) 100 08/19/19 05:00 99 21 128/72 (90) 100 08/19/19 04:02 112 08/19/19 04:00 Nasal Cannula 2.0 08/19/19 04:00 97.7 99 23 146/91 (109) 100 08/19/19 03:00 96 21 140/69 (92) 100 08/19/19 02:00 109 24 132/65 (87) 96 08/19/19 01:00 102 23 130/60 (83) 97 08/19/19 00:00 Nasal Cannula 2.0 08/19/19 00:00 97.8 106 25 113/74 (87) 99 08/18/19 23:35 109 08/18/19 23:00 104 26 137/72 (93) 100 08/18/19 22:00 104 20 137/124 (128) 100 08/18/19 21:00 111 17 128/110 (116) 99 08/18/19 20:29 133 125/66 08/18/19 20:05 128 08/18/19 20:00 Nasal Cannula 2.0 08/18/19 20:00 97.7 121 16 125/66 (85) 96 08/18/19 19:16 124 21 98 Nasal Cannula 2.0 28 08/18/19 19:16 98 Nasal Cannula 2.0 28 08/18/19 19:00 129 27 100/57 (71) 96 08/18/19 18:00 123 26 97/60 (72) 95 08/18/19 17:00 115 18 102/55 (71) 100 08/18/19 16:00 118 08/18/19 16:00 Nasal Cannula 2.0 08/18/19 16:00 98.0 115 15 99/50 (66) 99 08/18/19 15:00 113 28 133/72 (92) 95 08/18/19 14:00 106 22 136/65 (88) 94 08/18/19 13:00 95 19 137/73 (94) 100 08/18/19 12:00 94 08/18/19 12:00 Nasal Cannula 2.0 08/18/19 12:00 98.5 96 21 139/83 (101) 100 08/18/19 11:00 85 22 124/67 (86) 100 Height (Feet): 5 Height (Inches): 3.00 Weight (Pounds): 146 General Appearance: no acute distress HEENT: mucous membranes moist Respiratory/Chest: lungs clear Cardiovascular: tachycardia Abdomen: soft, non tender Extremities: no edema Neurologic/Psychiatric: alert, responsive Laboratory Tests Test 08/19/19 05:01 White Blood Count 4.6 K/UL (4.8-10.8) L Red Blood Count 3.52 M/UL (4.20-5.40) L Hemoglobin 9.6 G/DL (12.0-16.0) L Hematocrit 31.2 % (37.0-47.0) L Mean Corpuscular Volume 89 FL (80-99) Mean Corpuscular Hemoglobin 27.3 PG (27.0-31.0) Mean Corpuscular Hemoglobin Concent 30.8 G/DL (32.0-36.0) L Red Cell Distribution Width 17.3 % (11.6-14.8) H Platelet Count 201 K/UL (150-450) Mean Platelet Volume 5.1 FL (6.5-10.1) L Neutrophils (%) (Auto) 61.8 % (45.0-75.0) Lymphocytes (%) (Auto) 23.4 % (20.0-45.0) Monocytes (%) (Auto) 13.4 % (1.0-10.0) H Eosinophils (%) (Auto) 0.6 % (0.0-3.0) Basophils (%) (Auto) 0.7 % (0.0-2.0) Sodium Level 145 MMOL/L (136-145) Potassium Level 3.7 MMOL/L (3.5-5.1) Chloride Level 108 MMOL/L (98-107) H Carbon Dioxide Level 33 MMOL/L (21-32) H Anion Gap 4 mmol/L (5-15) L Blood Urea Nitrogen 7 mg/dL (7-18) Creatinine 0.6 MG/DL (0.55-1.30) Estimat Glomerular Filtration Rate mL/min (>60) Glucose Level 102 MG/DL (74-106) Calcium Level 10.1 MG/DL (8.5-10.1) Magnesium Level 2.7 MG/DL (1.8-2.4) H Total Bilirubin 0.4 MG/DL (0.2-1.0) Aspartate Amino Transf (AST/SGOT) 26 U/L (15-37) Alanine Aminotransferase (ALT/SGPT) 22 U/L (12-78) Alkaline Phosphatase 89 U/L (46-116) Pro-B-Type Natriuretic Peptide 730 pg/mL (0-125) H Total Protein 6.0 G/DL (6.4-8.2) L Albumin 2.2 G/DL (3.4-5.0) L Globulin 3.8 g/dL Albumin/Globulin Ratio 0.6 (1.0-2.7) L Current Medications Medications (Trade) Dose Ordered Sig/Ronaldo Route PRN Reason Start Time Stop Time Status Last Admin Dose Admin Acetaminophen (Tylenol) 650 mg Q6H PRN ORAL Mild Pain/Temp > 100.5 08/17/19 08:30 09/16/19 08:29 08/18/19 14:24 Albuterol/ Ipratropium (Albuterol/ Ipratropium) 3 ml Q4HRT PRN HHN Shortness of Breath 08/17/19 11:00 08/20/19 06:44 Ascorbic Acid (Vitamin C) 500 mg DAILY ORAL 08/17/19 09:00 09/14/19 08:59 08/19/19 09:55 Aspirin (Ecotrin) 81 mg DAILY ORAL 08/17/19 09:00 09/14/19 08:59 08/19/19 09:56 Atorvastatin Calcium (Lipitor) 10 mg BEDTIME ORAL 08/17/19 21:00 09/14/19 20:59 08/18/19 20:29 Dextrose (Dextrose 50%) 25 ml Q30M PRN IV Hypoglycemia 08/17/19 08:15 09/14/19 06:44 Dextrose (Dextrose 50%) 50 ml Q30M PRN IV Hypoglycemia 08/17/19 08:15 09/14/19 06:44 Heparin Sodium (Porcine) (Heparin 5000 units/ml) 5,000 units EVERY 12 HOURS SUBQ 08/17/19 09:00 09/14/19 08:59 08/19/19 09:57 Insulin Aspart (NovoLOG) BEFORE MEALS AND HS SUBQ 08/17/19 11:30 09/14/19 11:29 Lactobacillus Acidophilus (Culturelle) 1 tab THREE TIMES A DAY ORAL 08/17/19 09:00 09/14/19 08:59 08/19/19 09:56 Lorazepam (Ativan 2mg/ml 1ml) 1 mg Q4H PRN IM For Anxiety 08/18/19 17:15 08/25/19 17:14 Meropenem 1 gm/ Sodium Chloride 55 ml @ 110 mls/hr Q8H IVPB 08/17/19 12:00 08/22/19 11:59 08/19/19 03:42 Metoprolol Tartrate (Lopressor) 25 mg Q12HR ORAL 08/19/19 09:00 09/18/19 08:59 08/19/19 09:55 Multivitamins (Multivitamins) 1 tab DAILY ORAL 08/17/19 09:00 09/14/19 08:59 08/19/19 09:55 Nitroglycerin (Ntg) 0.4 mg Q5M PRN SL CHEST PAIN 08/17/19 08:15 09/14/19 06:44 Pantoprazole (Protonix) 40 mg DAILY IVP 08/17/19 09:00 09/14/19 08:59 08/19/19 09:56 Quetiapine Fumarate (SEROquel) 25 mg TID ORAL 08/18/19 18:00 09/17/19 17:59 08/19/19 09:55 Sodium Chloride 1,000 ml @ 75 mls/hr [id number] IV 08/18/19 23:45 09/17/19 23:44 08/19/19 00:05 Scotty Dumont MD Aug 19, 2019 10:11
--- NOTE | 2019-08-19 13:09 | Diagnostic Imaging Report ---
APPROVED REPORT CPT Code: 64846 Present Symptoms Lower Extremity Edema: Bilateral Shortness of breath BILATERAL: Imaging reveals a patent deep venous system bilaterally. There is no evidence of thrombus within the femoral, popliteal or tibial segments. The greater saphenous veins are also within normal limits. Doppler indicates normal spontaneous flow within these segments.
[2019-08-20] VITALS (26 sets, daily range): BP systolic 91–166; BP diastolic 53–124
--- NOTE | 2019-08-20 03:00 | Progress Note ---
DATE: 08/19/2019 SUBJECTIVE: The patient is having anxiety and agitation. The patient is uncooperative with care. Continues to yell and scream, however, less agitated. Poor insight. MENTAL STATUS EXAMINATION: The patient is alert and disoriented. Mood is anxious. Affect is flat. Thought process, there is a paucity of thought content. Thought content, no suicidal or homicidal ideations. ASSESSMENT: 1. Acute encephalopathy. 2. Dementia. PLAN: 1. The patient will be continued on Seroquel 25 mg t.i.d. 2. Ativan p.r.n. 3. Provide the patient with reality orientation and supportive therapy. Tal Kwong M.D. DR: CHANDLER JOB#: [id number] CC:
[2019-08-20] MEDS: Meropenem 1 GM in NS 55 ML IVPB SCH ×3 (03:29→19:25)
--- NOTE | 2019-08-20 04:00 | Progress Note ---
DATE: 08/19/2019 CARDIOLOGY PROGRESS NOTE SUBJECTIVE: The patient remains in the intensive care unit. She remains with sinus tachycardic episodes. She refuses to take her beta-sandy. OBJECTIVE: VITAL SIGNS: Blood pressure 110/59 to 150/78, heart rate 98 to 112, and respiratory rate 11 to 20. No fevers. LUNGS: Diminished breath sounds. Few rhonchi. HEART: Regular rhythm. Rapid rate. Normal S1, S2. ABDOMEN: Soft. EXTREMITIES: Trace edema. LABORATORY DATA: White count 4.6 and hemoglobin 9.6. Sodium 145, potassium 3.7, bicarb 33, BUN 7, and creatinine 0.6. Magnesium 2.7. Albumin 2.2. Pro-natriuretic peptide decreased to 730. Troponin negative. IMPRESSION: 1. Paroxysmal supraventricular tachycardias. 2. Secondary sinus tachycardia. 3. Severe protein-calorie malnutrition. 4. Chronic diastolic congestive heart failure. 5. Dehydration and hypernatremia, improved. 6. Urinary tract infection with sepsis. 7. Pleural effusion. PLAN: 1. Increase beta-sandy compliance. 2. Continue hypotonic IV fluids. 3. Monitor electrolytes. 4. Respiratory hygiene. 5. No role for diuresis. 6. Consideration for thoracentesis. Smooth Wilson M.D. DR: DAYNA JOB#: [id number] CC:
[2019-08-20 05:32] LABS: BASOPHILS % (AUTO) 0.9 % (0.0-2.0); EOSINOPHILS % (AUTO) 1.3 % (0.0-3.0); HEMATOCRIT 31.4 % (37.0-47.0); HEMOGLOBIN 9.5 G/DL (12.0-16.0); LYMPHOCYTES % (AUTO) 22.6 % (20.0-45.0); MEAN CORPUSCULAR VOLUME 89 FL (80-99); MONOCYTES % (AUTO) 12.1 % (1.0-10.0); NEUTROPHILS % (AUTO) 63.1 % (45.0-75.0); PLATELET COUNT 234 K/UL (150-450); RED BLOOD COUNT 3.51 M/UL (4.20-5.40); RED CELL DISTRIBUTION WIDTH 17.8 % (11.6-14.8); WHITE BLOOD COUNT 5.5 K/UL (4.8-10.8)
[2019-08-20 05:40] LABS: ALANINE AMINOTRANSFERASE 20 U/L (12-78); ALBUMIN 2.1 G/DL (3.4-5.0); ALBUMIN/GLOBULIN RATIO 0.6 (1.0-2.7); ALKALINE PHOSPHATASE 85 U/L (46-116); ANION GAP 3 mmol/L (5-15); ASPARTATE AMINO TRANSFERASE 37 U/L (15-37); BILIRUBIN,TOTAL 0.4 MG/DL (0.2-1.0); BLOOD UREA NITROGEN 7 mg/dL (7-18); CALCIUM 9.4 MG/DL (8.5-10.1); CARBON DIOXIDE 32 MMOL/L (21-32); CHLORIDE 109 MMOL/L (98-107); CREATININE 0.6 MG/DL (0.55-1.30); POTASSIUM 3.9 MMOL/L (3.5-5.1); SODIUM 144 MMOL/L (136-145)
[2019-08-20] MEDS: NovoLOG Insulin Flexpen SUBQ SCH ×4 (06:02→20:28)
[2019-08-20] MEDS: Metoprolol Tartrate 12.5mg TAB ORAL SCH ×2 (08:28→20:24)
[2019-08-20] MEDS: Aspirin EC 81mg tab ORAL SCH (08:28)
[2019-08-20] MEDS: Ascorbic Acid 500mg tab ORAL SCH (08:30)
[2019-08-20] MEDS: Lactobacillus-GG tablet ORAL SCH ×3 (08:30→17:37)
[2019-08-20] MEDS: Pantoprazole Inj IVP SCH (08:33)
[2019-08-20] MEDS: Heparin 5000 units/ml inj SUBQ SCH ×2 (08:37→20:28)
--- NOTE | 2019-08-20 13:01 | Infectious Diseases Prog Note ---
Assessment/Plan Assessment/Plan A 1. E.coli sepsis 2. E.coli esbl UTI 3. pneumonia/ atelectasis 4. leucocytosis resolved 5. diabetes mellitus 6. 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 Anemia P 1. continue meropenem 6 more days 2. will follow up cultures Subjective ROS Limited/Unobtainable: Yes Constitutional: Reports: no symptoms Respiratory: Reports: no symptoms Genitourinary: Reports: no symptoms Allergies: Coded Allergies: INFLIXIMAB (Verified Allergy, Unknown, 08/15/19) Objective Vital Signs Last 24 Hour Vital Signs Date Time Temp Pulse Resp B/P (MAP) Pulse Ox O2 Delivery O2 Flow Rate FiO2 08/20/19 12:30 79 29 121/69 (86) 99 08/20/19 12:00 Nasal Cannula 2.0 Nasal Cannula 2.0 08/20/19 12:00 97.9 83 27 106/61 (76) 99 08/20/19 11:39 78 08/20/19 11:30 85 24 91/54 (66) 97 08/20/19 11:00 100 33 112/85 (94) 82 08/20/19 10:30 91 38 104/54 (71) 100 08/20/19 10:00 104 24 128/54 (78) 100 08/20/19 09:00 131 48 126/64 (84) 100 08/20/19 08:28 128 121/107 08/20/19 08:00 Nasal Cannula 2.0 Nasal Cannula 2.0 08/20/19 08:00 97.8 112 19 121/107 (112) 100 08/20/19 07:32 113 08/20/19 07:00 111 24 135/62 (86) 100 08/20/19 06:58 109 21 100 Room Air 21 08/20/19 06:58 100 Room Air 21 08/20/19 06:00 110 22 166/79 (108) 100 08/20/19 05:00 113 23 136/75 (95) 100 08/20/19 04:00 Nasal Cannula 2.0 08/20/19 04:00 97.9 112 24 149/76 (100) 98 08/20/19 03:34 113 08/20/19 03:00 113 24 126/68 (87) 100 08/20/19 02:00 115 19 130/72 (91) 100 08/20/19 01:00 114 17 115/70 (85) 100 08/20/19 00:00 98.6 114 25 116/68 (84) 100 08/20/19 00:00 Nasal Cannula 2.0 08/19/19 23:34 114 08/19/19 23:00 112 26 118/63 (81) 08/19/19 22:00 106 34 101/78 (86) 08/19/19 21:00 106 26 107/53 (71) 08/19/19 20:00 107 08/19/19 20:00 98.8 107 25 100/62 (75) 91 08/19/19 20:00 Nasal Cannula 2.0 08/19/19 19:00 106 20 91/67 (75) 08/19/19 18:00 139 25 107/38 (61) 08/19/19 17:56 143 105/52 08/19/19 17:00 139 24 105/52 (69) 08/19/19 16:14 134 08/19/19 16:00 97.8 135 24 126/72 (90) 08/19/19 16:00 Nasal Cannula 2.0 08/19/19 15:00 136 32 123/65 (84) 08/19/19 14:00 135 27 99/43 (61) Height (Feet): 5 Height (Inches): 3.00 Weight (Pounds): 147 General Appearance: no acute distress HEENT: mucous membranes moist Respiratory/Chest: lungs clear Cardiovascular: normal rate Abdomen: soft, non tender Extremities: no edema Skin: other - bruises Neurologic/Psychiatric: alert, responsive Laboratory Tests Test 08/20/19 04:15 White Blood Count 5.5 K/UL (4.8-10.8) Red Blood Count 3.51 M/UL (4.20-5.40) L Hemoglobin 9.5 G/DL (12.0-16.0) L Hematocrit 31.4 % (37.0-47.0) L Mean Corpuscular Volume 89 FL (80-99) Mean Corpuscular Hemoglobin 27.1 PG (27.0-31.0) Mean Corpuscular Hemoglobin Concent 30.4 G/DL (32.0-36.0) L Red Cell Distribution Width 17.8 % (11.6-14.8) H Platelet Count 234 K/UL (150-450) Mean Platelet Volume 5.3 FL (6.5-10.1) L Neutrophils (%) (Auto) 63.1 % (45.0-75.0) Lymphocytes (%) (Auto) 22.6 % (20.0-45.0) Monocytes (%) (Auto) 12.1 % (1.0-10.0) H Eosinophils (%) (Auto) 1.3 % (0.0-3.0) Basophils (%) (Auto) 0.9 % (0.0-2.0) Sodium Level 144 MMOL/L (136-145) Potassium Level 3.9 MMOL/L (3.5-5.1) Chloride Level 109 MMOL/L (98-107) H Carbon Dioxide Level 32 MMOL/L (21-32) Anion Gap 3 mmol/L (5-15) L Blood Urea Nitrogen 7 mg/dL (7-18) Creatinine 0.6 MG/DL (0.55-1.30) Estimat Glomerular Filtration Rate mL/min (>60) Glucose Level 101 MG/DL (74-106) Calcium Level 9.4 MG/DL (8.5-10.1) Total Bilirubin 0.4 MG/DL (0.2-1.0) Aspartate Amino Transf (AST/SGOT) 37 U/L (15-37) Alanine Aminotransferase (ALT/SGPT) 20 U/L (12-78) Alkaline Phosphatase 85 U/L (46-116) Total Protein 5.8 G/DL (6.4-8.2) L Albumin 2.1 G/DL (3.4-5.0) L Globulin 3.7 g/dL Albumin/Globulin Ratio 0.6 (1.0-2.7) L Current Medications Medications (Trade) Dose Ordered Sig/Ronaldo Route PRN Reason Start Time Stop Time Status Last Admin Dose Admin Acetaminophen (Tylenol) 650 mg Q6H PRN ORAL Mild Pain/Temp > 100.5 08/17/19 08:30 09/16/19 08:29 08/19/19 17:40 Ascorbic Acid (Vitamin C) 500 mg DAILY ORAL 08/17/19 09:00 09/14/19 08:59 08/20/19 08:30 Aspirin (Ecotrin) 81 mg DAILY ORAL 08/17/19 09:00 09/14/19 08:59 08/20/19 08:28 Atorvastatin Calcium (Lipitor) 10 mg BEDTIME ORAL 08/17/19 21:00 09/14/19 20:59 08/19/19 20:37 Dextrose (Dextrose 50%) 25 ml Q30M PRN IV Hypoglycemia 08/17/19 08:15 09/14/19 06:44 Dextrose (Dextrose 50%) 50 ml Q30M PRN IV Hypoglycemia 08/17/19 08:15 09/14/19 06:44 Heparin Sodium (Porcine) (Heparin 5000 units/ml) 5,000 units EVERY 12 HOURS SUBQ 08/17/19 09:00 09/14/19 08:59 08/20/19 08:37 Insulin Aspart (NovoLOG) BEFORE MEALS AND HS SUBQ 08/17/19 11:30 09/14/19 11:29 08/20/19 11:34 Lactobacillus Acidophilus (Culturelle) 1 tab THREE TIMES A DAY ORAL 08/17/19 09:00 09/14/19 08:59 08/20/19 12:26 Lorazepam (Ativan 2mg/ml 1ml) 1 mg Q4H PRN IM For Anxiety 08/18/19 17:15 08/25/19 17:14 Meropenem 1 gm/ Sodium Chloride 55 ml @ 110 mls/hr Q8H IVPB 08/17/19 12:00 08/22/19 11:59 08/20/19 11:15 Metoprolol Tartrate (Lopressor) 25 mg Q12HR ORAL 08/19/19 09:00 09/18/19 08:59 08/20/19 08:28 Multivitamins (Multivitamins) 1 tab DAILY ORAL 08/17/19 09:00 09/14/19 08:59 08/20/19 08:30 Nitroglycerin (Ntg) 0.4 mg Q5M PRN SL CHEST PAIN 08/17/19 08:15 09/14/19 06:44 Pantoprazole (Protonix) 40 mg DAILY IVP 08/17/19 09:00 09/14/19 08:59 08/20/19 08:33 Quetiapine Fumarate (SEROquel) 25 mg TID ORAL 08/18/19 18:00 09/17/19 17:59 08/20/19 12:26 Sodium Chloride 1,000 ml @ 75 mls/hr [id number] IV 08/18/19 23:45 09/17/19 23:44 08/20/19 02:43 Scotty Dumont MD Aug 20, 2019 13:01
--- NOTE | 2019-08-20 16:03 | Pulmonology Progress Note ---
Assessment/Plan Assessment/Plan Impression: Pneumonia Urinary tract infection + Sepsis + blood cultures Paroxysmal atrial fibrillation Asthma/COPD Congestive Heart Failure Diabetes Hypertension Hyperlipidemia Generalized weakness Tachyarrythmia Protein calorie malnutrition acute encephalopathy Plan IV Antibiotics per ID ID evaluation noted and reviewed O2 PRN HHN with albuterol cardiology noted diurese as able CXR will monitor Aspiration precautions ST follow up monitor for change critical at present monitor in ICU care monitor protein levels monitor skin exam medications/laboratory data/nursing notes/ICU care reviewed in detail note reviewed and edited care discussed with RN and RT ICU time spent 32 minutes Subjective Allergies: Coded Allergies: INFLIXIMAB (Verified Allergy, Unknown, 08/15/19) Subjective care noted noted congestion on oxygen slightly better ICU care reviewed Objective Last 24 Hour Vital Signs Date Time Temp Pulse Resp B/P (MAP) Pulse Ox O2 Delivery O2 Flow Rate FiO2 08/20/19 15:00 105 26 123/64 (83) 98 08/20/19 14:00 98 24 97/53 (68) 97 08/20/19 13:00 64 26 113/70 (84) 99 08/20/19 12:30 79 29 121/69 (86) 99 08/20/19 12:00 Nasal Cannula 2.0 Nasal Cannula 2.0 08/20/19 12:00 97.9 83 27 106/61 (76) 99 08/20/19 11:39 78 08/20/19 11:30 85 24 91/54 (66) 97 08/20/19 11:00 100 33 112/85 (94) 82 08/20/19 10:30 91 38 104/54 (71) 100 08/20/19 10:00 104 24 128/54 (78) 100 08/20/19 09:00 131 48 126/64 (84) 100 08/20/19 08:28 128 121/107 08/20/19 08:00 Nasal Cannula 2.0 Nasal Cannula 2.0 08/20/19 08:00 97.8 112 19 121/107 (112) 100 08/20/19 07:32 113 08/20/19 07:00 111 24 135/62 (86) 100 08/20/19 06:58 109 21 100 Room Air 21 08/20/19 06:58 100 Room Air 21 08/20/19 06:00 110 22 166/79 (108) 100 08/20/19 05:00 113 23 136/75 (95) 100 08/20/19 04:00 Nasal Cannula 2.0 08/20/19 04:00 97.9 112 24 149/76 (100) 98 08/20/19 03:34 113 08/20/19 03:00 113 24 126/68 (87) 100 08/20/19 02:00 115 19 130/72 (91) 100 08/20/19 01:00 114 17 115/70 (85) 100 08/20/19 00:00 98.6 114 25 116/68 (84) 100 08/20/19 00:00 Nasal Cannula 2.0 08/19/19 23:34 114 08/19/19 23:00 112 26 118/63 (81) 08/19/19 22:00 106 34 101/78 (86) 08/19/19 21:00 106 26 107/53 (71) 08/19/19 20:00 107 08/19/19 20:00 98.8 107 25 100/62 (75) 91 08/19/19 20:00 Nasal Cannula 2.0 08/19/19 19:00 106 20 91/67 (75) 08/19/19 18:00 139 25 107/38 (61) 08/19/19 17:56 143 105/52 08/19/19 17:00 139 24 105/52 (69) 08/19/19 16:14 134 Intake and Output 08/19/19 08/20/19 19:00 07:00 Intake Total 1315.0 ml 1081.25 ml Output Total 715 ml 1202 ml Balance 600.0 ml -120.75 ml Intake Oral 360 ml 200 ml IV Total 955.0 ml 881.25 ml Output Urine Total 715 ml 1202 ml Objective WDWN on oxygen mild distress reduced breath sounds bilaterally with scattered rhonchi [id number] without MRG NABS nontender no HSM no CC some edema- pitting nonfocal weak overall Laboratory Tests 08/20/19 04:15: White Blood Count 5.5, Red Blood Count 3.51L, Hemoglobin 9.5L, Hematocrit 31.4L , Mean Corpuscular Volume 89, Mean Corpuscular Hemoglobin 27.1, Mean Corpuscular Hemoglobin Concent 30.4L, Red Cell Distribution Width 17.8H, Platelet Count 234, Mean Platelet Volume 5.3L, Neutrophils (%) (Auto) 63.1, Lymphocytes (%) (Auto) 22.6, Monocytes (%) (Auto) 12.1H, Eosinophils (%) (Auto) 1.3, Basophils (%) (Auto) 0.9, Sodium Level 144, Potassium Level 3.9, Chloride Level 109H, Carbon Dioxide Level 32, Anion Gap 3L, Blood Urea Nitrogen 7, Creatinine 0.6, Estimat Glomerular Filtration Rate , Glucose Level 101, Calcium Level 9.4, Total Bilirubin 0.4, Aspartate Amino Transf (AST/SGOT) 37, Alanine Aminotransferase (ALT/SGPT) 20, Alkaline Phosphatase 85, Total Protein 5.8L, Albumin 2.1L, Globulin 3.7, Albumin/Globulin Ratio 0.6L Current Medications Medications (Trade) Dose Ordered Sig/Ronaldo Route PRN Reason Start Time Stop Time Status Last Admin Dose Admin Acetaminophen (Tylenol) 650 mg Q6H PRN ORAL Mild Pain/Temp > 100.5 08/17/19 08:30 09/16/19 08:29 08/19/19 17:40 Ascorbic Acid (Vitamin C) 500 mg DAILY ORAL 08/17/19 09:00 09/14/19 08:59 08/20/19 08:30 Aspirin (Ecotrin) 81 mg DAILY ORAL 08/17/19 09:00 09/14/19 08:59 08/20/19 08:28 Atorvastatin Calcium (Lipitor) 10 mg BEDTIME ORAL 08/17/19 21:00 09/14/19 20:59 08/19/19 20:37 Dextrose (Dextrose 50%) 25 ml Q30M PRN IV Hypoglycemia 08/17/19 08:15 09/14/19 06:44 Dextrose (Dextrose 50%) 50 ml Q30M PRN IV Hypoglycemia 08/17/19 08:15 09/14/19 06:44 Heparin Sodium (Porcine) (Heparin 5000 units/ml) 5,000 units EVERY 12 HOURS SUBQ 08/17/19 09:00 09/14/19 08:59 08/20/19 08:37 Insulin Aspart (NovoLOG) BEFORE MEALS AND HS SUBQ 08/17/19 11:30 09/14/19 11:29 08/20/19 11:34 Lactobacillus Acidophilus (Culturelle) 1 tab THREE TIMES A DAY ORAL 08/17/19 09:00 09/14/19 08:59 08/20/19 12:26 Lorazepam (Ativan 2mg/ml 1ml) 1 mg Q4H PRN IM For Anxiety 08/18/19 17:15 08/25/19 17:14 Meropenem 1 gm/ Sodium Chloride 55 ml @ 110 mls/hr Q8H IVPB 08/17/19 12:00 08/22/19 11:59 08/20/19 11:15 Metoprolol Tartrate (Lopressor) 25 mg Q12HR ORAL 08/19/19 09:00 09/18/19 08:59 08/20/19 08:28 Multivitamins (Multivitamins) 1 tab DAILY ORAL 08/17/19 09:00 09/14/19 08:59 08/20/19 08:30 Nitroglycerin (Ntg) 0.4 mg Q5M PRN SL CHEST PAIN 08/17/19 08:15 09/14/19 06:44 Pantoprazole (Protonix) 40 mg DAILY IVP 08/17/19 09:00 09/14/19 08:59 08/20/19 08:33 Quetiapine Fumarate (SEROquel) 25 mg TID ORAL 08/18/19 18:00 09/17/19 17:59 08/20/19 12:26 Sodium Chloride 1,000 ml @ 75 mls/hr [id number] IV 08/18/19 23:45 09/17/19 23:44 08/20/19 15:53 Piero Lu MD Aug 20, 2019 16:03
--- NOTE | 2019-08-20 16:18 | General Progress Note ---
Assessment/Plan Problem List: (1) Diabetes ICD Codes: E11.9 - Type 2 diabetes mellitus without complications SNOMED: 94939034 (2) Hypertension ICD Codes: I10 - Essential (primary) hypertension SNOMED: 38606337 (3) Anemia ICD Codes: D64.9 - Anemia, unspecified SNOMED: 618678367 (4) UTI (urinary tract infection) ICD Codes: N39.0 - Urinary tract infection, site not specified SNOMED: 77424848 (5) Tachycardia ICD Codes: R00.0 - Tachycardia, unspecified SNOMED: 5720069 (6) Pneumonia ICD Codes: J18.9 - Pneumonia, unspecified organism SNOMED: 683343742 (7) Bacteremia ICD Codes: R78.81 - Bacteremia SNOMED: 1423767 Status: stable Assessment/Plan: monitor hr/tele b-blockade compliance stressed iv abx per id follow up cultures dvt/stress ulcer prophylaxis psych rx Subjective ROS Limited/Unobtainable: No Constitutional: Reports: malaise, weakness HEENT: Reports: no symptoms Cardiovascular: Reports: irregular heart rate Respiratory: Reports: cough Gastrointestinal/Abdominal: Reports: no symptoms Genitourinary: Reports: no symptoms Neurologic/Psychiatric: Reports: anxiety, emotional problems Endocrine: Reports: no symptoms Hematologic/Lymphatic: Reports: anemia Allergies: Coded Allergies: INFLIXIMAB (Verified Allergy, Unknown, 08/15/19) All Systems: reviewed and negative except above Subjective HR elevated again. pt noncompliance with taking oral meds. no new events. on abx for pna and uti. +esbl in blood Objective Last 24 Hour Vital Signs Date Time Temp Pulse Resp B/P (MAP) Pulse Ox O2 Delivery O2 Flow Rate FiO2 08/20/19 16:00 97.8 112 29 129/69 (89) 98 08/20/19 16:00 Nasal Cannula 2.0 Nasal Cannula 2.0 08/20/19 15:33 104 08/20/19 15:00 105 26 123/64 (83) 98 08/20/19 14:00 98 24 97/53 (68) 97 08/20/19 13:00 64 26 113/70 (84) 99 08/20/19 12:30 79 29 121/69 (86) 99 08/20/19 12:00 Nasal Cannula 2.0 Nasal Cannula 2.0 08/20/19 12:00 97.9 83 27 106/61 (76) 99 08/20/19 11:39 78 08/20/19 11:30 85 24 91/54 (66) 97 08/20/19 11:00 100 33 112/85 (94) 82 08/20/19 10:30 91 38 104/54 (71) 100 08/20/19 10:00 104 24 128/54 (78) 100 08/20/19 09:00 131 48 126/64 (84) 100 08/20/19 08:28 128 121/107 08/20/19 08:00 Nasal Cannula 2.0 Nasal Cannula 2.0 08/20/19 08:00 97.8 112 19 121/107 (112) 100 08/20/19 07:32 113 08/20/19 07:00 111 24 135/62 (86) 100 08/20/19 06:58 109 21 100 Room Air 21 08/20/19 06:58 100 Room Air 21 08/20/19 06:00 110 22 166/79 (108) 100 08/20/19 05:00 113 23 136/75 (95) 100 08/20/19 04:00 Nasal Cannula 2.0 08/20/19 04:00 97.9 112 24 149/76 (100) 98 08/20/19 03:34 113 08/20/19 03:00 113 24 126/68 (87) 100 08/20/19 02:00 115 19 130/72 (91) 100 08/20/19 01:00 114 17 115/70 (85) 100 08/20/19 00:00 98.6 114 25 116/68 (84) 100 08/20/19 00:00 Nasal Cannula 2.0 08/19/19 23:34 114 08/19/19 23:00 112 26 118/63 (81) 08/19/19 22:00 106 34 101/78 (86) 08/19/19 21:00 106 26 107/53 (71) 08/19/19 20:00 107 08/19/19 20:00 98.8 107 25 100/62 (75) 91 08/19/19 20:00 Nasal Cannula 2.0 08/19/19 19:00 106 20 91/67 (75) 08/19/19 18:00 139 25 107/38 (61) 08/19/19 17:56 143 105/52 08/19/19 17:00 139 24 105/52 (69) Intake and Output 08/19/19 08/20/19 19:00 07:00 Intake Total 1315.0 ml 1081.25 ml Output Total 715 ml 1202 ml Balance 600.0 ml -120.75 ml Intake Oral 360 ml 200 ml IV Total 955.0 ml 881.25 ml Output Urine Total 715 ml 1202 ml Laboratory Tests 08/20/19 04:15: White Blood Count 5.5, Red Blood Count 3.51L, Hemoglobin 9.5L, Hematocrit 31.4L , Mean Corpuscular Volume 89, Mean Corpuscular Hemoglobin 27.1, Mean Corpuscular Hemoglobin Concent 30.4L, Red Cell Distribution Width 17.8H, Platelet Count 234, Mean Platelet Volume 5.3L, Neutrophils (%) (Auto) 63.1, Lymphocytes (%) (Auto) 22.6, Monocytes (%) (Auto) 12.1H, Eosinophils (%) (Auto) 1.3, Basophils (%) (Auto) 0.9, Sodium Level 144, Potassium Level 3.9, Chloride Level 109H, Carbon Dioxide Level 32, Anion Gap 3L, Blood Urea Nitrogen 7, Creatinine 0.6, Estimat Glomerular Filtration Rate , Glucose Level 101, Calcium Level 9.4, Total Bilirubin 0.4, Aspartate Amino Transf (AST/SGOT) 37, Alanine Aminotransferase (ALT/SGPT) 20, Alkaline Phosphatase 85, Total Protein 5.8L, Albumin 2.1L, Globulin 3.7, Albumin/Globulin Ratio 0.6L Height (Feet): 5 Height (Inches): 3.00 Weight (Pounds): 147 Objective General Appearance: WD/WN, alert Neck: supple Cardiovascular: regular rhythm, tachycardia Respiratory/Chest: chest wall non-tender, lungs clear, normal breath sounds, no respiratory distress Abdomen: normal bowel sounds, non tender, soft, no organomegaly Edema: 1+ Leg (L), 1+ Leg (R) Neurologic: cloth worker II-XII grossly normal, no motor/sensory deficits, alert, oriented x 3, responsive Carmine Krishna MD Aug 20, 2019 16:18
[2019-08-20] MEDS ORDERED: Metoprolol 5mg/5ml Inj IVPB SCH (22:00)
--- NOTE | 2019-08-20 22:45 | Progress Note ---
DATE: 08/20/2019 CARDIOLOGY PROGRESS NOTE SUBJECTIVE: The patient remains with rapid heart rate, sinus tachycardia, and episodes of atrial arrhythmias. She continues to refuse oral beta-sandy therapy. OBJECTIVE: VITAL SIGNS: Blood pressure 129/69, heart rate 112, respiratory rate 29, and afebrile. LUNGS: With few rhonchi. CARDIAC: Regular rhythm. Rapid rate. Normal S1, S2. ABDOMEN: Soft. EXTREMITIES: Trace edema. LABORATORY DATA: White count 5.5 and hemoglobin 9.5. Potassium 3.9, albumin 2.1, BUN 7, and creatinine 0.6. IMPRESSION: 1. Paroxysmal supraventricular tachyarrhythmias. 2. Secondary sinus tachycardia. 3. Sepsis. 4. Dehydration. 5. Hypernatremia, corrected. 6. Metabolic encephalopathy, improving. 7. Healthcare-acquired pneumonia. 8. Hypertensive heart disease. PLAN: 1. Antimicrobials. 2. Respiratory hygiene. 3. Hypotonic hydration. 4. Protein supplement. 5. DVT and stress ulcer prophylaxis. 6. Encourage compliance with beta-sandy. Use IV therapy in the interim. Smooth Wilson M.D. DR: Alla JOB#: [id number] CC:
[2019-08-20] MEDS: Metoprolol Tartrate 5 MG in D5W 55 ML IVPB SCH (23:06)
[2019-08-21] VITALS (24 sets, daily range): BP systolic 93–143; BP diastolic 42–107
[2019-08-21] MEDS: Metoprolol Tartrate 5 MG in D5W 55 ML IVPB SCH ×3 (00:56→12:10)
[2019-08-21] MEDS: Meropenem 1 GM in NS 55 ML IVPB SCH ×3 (03:42→19:59)
[2019-08-21] MEDS: NovoLOG Insulin Flexpen SUBQ SCH ×5 (06:11→20:38)
[2019-08-21 08:04] LABS: BASOPHILS % (AUTO) 0.6 % (0.0-2.0); EOSINOPHILS % (AUTO) 1.5 % (0.0-3.0); HEMATOCRIT 32.8 % (37.0-47.0); LYMPHOCYTES % (AUTO) 22.8 % (20.0-45.0); MEAN CORPUSCULAR VOLUME 89 FL (80-99); MONOCYTES % (AUTO) 10.8 % (1.0-10.0); NEUTROPHILS % (AUTO) 64.3 % (45.0-75.0); PLATELET COUNT 278 K/UL (150-450); RED BLOOD COUNT 3.68 M/UL (4.20-5.40); RED CELL DISTRIBUTION WIDTH 17.5 % (11.6-14.8); WHITE BLOOD COUNT 7.3 K/UL (4.8-10.8)
[2019-08-21] MEDS: Aspirin EC 81mg tab ORAL SCH (08:32)
[2019-08-21] MEDS: Ascorbic Acid 500mg tab ORAL SCH (08:32)
[2019-08-21] MEDS: Pantoprazole Inj IVP SCH (08:32)
[2019-08-21] MEDS: Lactobacillus-GG tablet ORAL SCH ×3 (08:32→17:34)
[2019-08-21] MEDS: Heparin 5000 units/ml inj SUBQ SCH ×2 (08:34→20:39)
--- NOTE | 2019-08-21 08:34 | General Progress Note ---
Assessment/Plan Problem List: (1) Diabetes ICD Codes: E11.9 - Type 2 diabetes mellitus without complications SNOMED: 52644050 (2) Hypertension ICD Codes: I10 - Essential (primary) hypertension SNOMED: 92944161 (3) Anemia ICD Codes: D64.9 - Anemia, unspecified SNOMED: 903874556 (4) UTI (urinary tract infection) ICD Codes: N39.0 - Urinary tract infection, site not specified SNOMED: 20153519 (5) Tachycardia ICD Codes: R00.0 - Tachycardia, unspecified SNOMED: 0671774 (6) Pneumonia ICD Codes: J18.9 - Pneumonia, unspecified organism SNOMED: 666786442 (7) Bacteremia ICD Codes: R78.81 - Bacteremia SNOMED: 6215114 Status: stable Assessment/Plan: monitor hr/tele b-blockade compliance stressed iv abx per id follow up cultures dvt/stress ulcer prophylaxis psych rx MAXI Subjective ROS Limited/Unobtainable: No Constitutional: Reports: malaise, weakness HEENT: Reports: no symptoms Cardiovascular: Reports: no symptoms Respiratory: Reports: no symptoms Gastrointestinal/Abdominal: Reports: no symptoms Genitourinary: Reports: no symptoms Neurologic/Psychiatric: Reports: emotional problems, pre-existing deficit Endocrine: Reports: no symptoms Hematologic/Lymphatic: Reports: no symptoms Allergies: Coded Allergies: INFLIXIMAB (Verified Allergy, Unknown, 08/15/19) All Systems: reviewed and negative except above Subjective hr better controlled. cooperative with meds. eating breakfast. HR <100 Objective Last 24 Hour Vital Signs Date Time Temp Pulse Resp B/P (MAP) Pulse Ox O2 Delivery O2 Flow Rate FiO2 08/21/19 07:00 90 23 127/67 (87) 98 08/21/19 06:09 102 137/76 08/21/19 06:00 101 21 137/76 (96) 100 08/21/19 05:00 93 25 119/64 (82) 100 08/21/19 04:00 Nasal Cannula 2.0 Nasal Cannula 2.0 08/21/19 04:00 98.0 97 27 141/59 (86) 98 08/21/19 04:00 98 08/21/19 03:00 104 27 142/68 (92) 93 08/21/19 02:00 84 35 143/107 (119) 98 08/21/19 01:00 101 29 142/80 (100) 99 08/21/19 00:56 99 138/62 08/21/19 00:00 92 08/21/19 00:00 98.0 93 25 138/62 (87) 99 08/21/19 00:00 Nasal Cannula 2.0 Nasal Cannula 2.0 08/20/19 23:06 94 134/67 08/20/19 23:00 95 25 134/67 (89) 100 08/20/19 22:00 102 11 137/69 (91) 98 08/20/19 21:00 119 45 144/71 (95) 98 08/20/19 20:24 118 139/124 08/20/19 20:00 129 15 139/124 (129) 98 08/20/19 20:00 131 08/20/19 20:00 Nasal Cannula 2.0 Nasal Cannula 2.0 08/20/19 19:22 126 25 96 Nasal Cannula 2.0 28 08/20/19 19:22 96 Nasal Cannula 2.0 28 08/20/19 19:00 98.6 121 23 145/87 (106) 96 08/20/19 18:00 109 14 139/77 (97) 98 08/20/19 17:00 121 31 95 08/20/19 16:00 97.8 112 29 129/69 (89) 98 08/20/19 16:00 Nasal Cannula 2.0 Nasal Cannula 2.0 08/20/19 15:33 104 08/20/19 15:00 105 26 123/64 (83) 98 08/20/19 14:00 98 24 97/53 (68) 97 08/20/19 13:00 64 26 113/70 (84) 99 08/20/19 12:30 79 29 121/69 (86) 99 08/20/19 12:00 Nasal Cannula 2.0 Nasal Cannula 2.0 08/20/19 12:00 97.9 83 27 106/61 (76) 99 08/20/19 11:39 78 08/20/19 11:30 85 24 91/54 (66) 97 08/20/19 11:00 100 33 112/85 (94) 82 08/20/19 10:30 91 38 104/54 (71) 100 08/20/19 10:00 104 24 128/54 (78) 100 08/20/19 09:00 131 48 126/64 (84) 100 Intake and Output 08/20/19 08/21/19 19:00 07:00 Intake Total 1010 ml 330 ml Output Total 1135 ml 1425 ml Balance -125 ml -1095 ml Intake Oral 280 ml 100 ml IV Total 730 ml 230 ml Output Urine Total 1135 ml 1425 ml Laboratory Tests 08/21/19 07:20: White Blood Count 7.3, Red Blood Count 3.68L, Hemoglobin 10.0L, Hematocrit 32.8L , Mean Corpuscular Volume 89, Mean Corpuscular Hemoglobin 27.1, Mean Corpuscular Hemoglobin Concent 30.4L, Red Cell Distribution Width 17.5H, Platelet Count 278, Mean Platelet Volume 5.5L, Neutrophils (%) (Auto) 64.3, Lymphocytes (%) (Auto) 22.8, Monocytes (%) (Auto) 10.8H, Eosinophils (%) (Auto) 1.5, Basophils (%) (Auto) 0.6, Sodium Level [Pending], Potassium Level [Pending] , Chloride Level [Pending], Carbon Dioxide Level [Pending], Blood Urea Nitrogen [Pending], Creatinine [Pending], Estimat Glomerular Filtration Rate [Pending], Glucose Level [Pending], Calcium Level [Pending], Phosphorus Level [Pending], Magnesium Level [Pending] Height (Feet): 5 Height (Inches): 3.00 Weight (Pounds): 145 Objective General Appearance: WD/WN, alert Neck: supple Cardiovascular: regular rhythm, tachycardia Respiratory/Chest: chest wall non-tender, lungs clear, normal breath sounds, no respiratory distress Abdomen: normal bowel sounds, non tender, soft, no organomegaly Edema: 1+ Leg (L), 1+ Leg (R) Neurologic: lens coater II-XII grossly normal, no motor/sensory deficits, alert, oriented x 3, responsive Carmine Krishna MD Aug 21, 2019 08:34
[2019-08-21 09:11] LABS: ANION GAP 2 mmol/L (5-15); BLOOD UREA NITROGEN 7 mg/dL (7-18); CALCIUM 10.1 MG/DL (8.5-10.1); CARBON DIOXIDE 34 MMOL/L (21-32); CHLORIDE 113 MMOL/L (98-107); CREATININE 0.6 MG/DL (0.55-1.30); POTASSIUM 3.8 MMOL/L (3.5-5.1); SODIUM 148 MMOL/L (136-145)
[2019-08-21 09:18] LABS: PHOSPHORUS 2.5 MG/DL (2.5-4.9)
--- NOTE | 2019-08-21 09:46 | Pulmonology Progress Note ---
Assessment/Plan Assessment/Plan Impression: Pneumonia Urinary tract infection + Sepsis + blood cultures Paroxysmal atrial fibrillation Asthma/COPD Congestive Heart Failure Diabetes Hypertension Hyperlipidemia Generalized weakness Tachyarrythmia Protein calorie malnutrition acute encephalopathy Plan IV Antibiotics per ID ID evaluation noted and reviewed O2 PRN HHN with albuterol - monitor heart rate cardiology noted on beta blockade diurese as able CXR for clearing Aspiration precautions ST follow up monitor for change improved in ICU monitor protein levels monitor skin exam transfer to [facility] medications/laboratory data/nursing notes/ICU care reviewed in detail note reviewed and edited care discussed with RN and RT ICU time spent 35 minutes Subjective Allergies: Coded Allergies: INFLIXIMAB (Verified Allergy, Unknown, 08/15/19) Subjective care noted noted congestion but zackary on oxygen- low flow heart rate better controlled cards noted ICU care reviewed Objective Last 24 Hour Vital Signs Date Time Temp Pulse Resp B/P (MAP) Pulse Ox O2 Delivery O2 Flow Rate FiO2 08/21/19 08:00 Nasal Cannula 2.0 Nasal Cannula 2.0 08/21/19 07:00 97 Nasal Cannula 2.0 28 08/21/19 07:00 90 23 127/67 (87) 98 08/21/19 07:00 98 20 97 Nasal Cannula 2.0 28 08/21/19 06:09 102 137/76 08/21/19 06:00 101 21 137/76 (96) 100 08/21/19 05:00 93 25 119/64 (82) 100 08/21/19 04:00 Nasal Cannula 2.0 Nasal Cannula 2.0 08/21/19 04:00 98.0 97 27 141/59 (86) 98 08/21/19 04:00 98 08/21/19 03:00 104 27 142/68 (92) 93 08/21/19 02:00 84 35 143/107 (119) 98 08/21/19 01:00 101 29 142/80 (100) 99 08/21/19 00:56 99 138/62 08/21/19 00:00 92 08/21/19 00:00 98.0 93 25 138/62 (87) 99 08/21/19 00:00 Nasal Cannula 2.0 Nasal Cannula 2.0 08/20/19 23:06 94 134/67 08/20/19 23:00 95 25 134/67 (89) 100 08/20/19 22:00 102 11 137/69 (91) 98 08/20/19 21:00 119 45 144/71 (95) 98 08/20/19 20:24 118 139/124 08/20/19 20:00 129 15 139/124 (129) 98 08/20/19 20:00 131 08/20/19 20:00 Nasal Cannula 2.0 Nasal Cannula 2.0 08/20/19 19:22 126 25 96 Nasal Cannula 2.0 28 08/20/19 19:22 96 Nasal Cannula 2.0 28 08/20/19 19:00 98.6 121 23 145/87 (106) 96 08/20/19 18:00 109 14 139/77 (97) 98 08/20/19 17:00 121 31 95 08/20/19 16:00 97.8 112 29 129/69 (89) 98 08/20/19 16:00 Nasal Cannula 2.0 Nasal Cannula 2.0 08/20/19 15:33 104 08/20/19 15:00 105 26 123/64 (83) 98 08/20/19 14:00 98 24 97/53 (68) 97 08/20/19 13:00 64 26 113/70 (84) 99 08/20/19 12:30 79 29 121/69 (86) 99 08/20/19 12:00 Nasal Cannula 2.0 Nasal Cannula 2.0 08/20/19 12:00 97.9 83 27 106/61 (76) 99 08/20/19 11:39 78 08/20/19 11:30 85 24 91/54 (66) 97 08/20/19 11:00 100 33 112/85 (94) 82 08/20/19 10:30 91 38 104/54 (71) 100 08/20/19 10:00 104 24 128/54 (78) 100 Intake and Output 08/20/19 08/21/19 19:00 07:00 Intake Total 1010 ml 330 ml Output Total 1135 ml 1525 ml Balance -125 ml -1195 ml Intake Oral 280 ml 100 ml IV Total 730 ml 230 ml Output Urine Total 1135 ml 1525 ml Objective WDWN on oxygen mild distress reduced breath sounds bilaterally with scattered rhonchi [id number] without MRG NABS nontender no HSM no CC some edema- pitting nonfocal weak overall reviewed and edited Laboratory Tests 08/21/19 07:20: White Blood Count 7.3, Red Blood Count 3.68L, Hemoglobin 10.0L, Hematocrit 32.8L , Mean Corpuscular Volume 89, Mean Corpuscular Hemoglobin 27.1, Mean Corpuscular Hemoglobin Concent 30.4L, Red Cell Distribution Width 17.5H, Platelet Count 278, Mean Platelet Volume 5.5L, Neutrophils (%) (Auto) 64.3, Lymphocytes (%) (Auto) 22.8, Monocytes (%) (Auto) 10.8H, Eosinophils (%) (Auto) 1.5, Basophils (%) (Auto) 0.6, Sodium Level 148H, Potassium Level 3.8, Chloride Level 113H, Carbon Dioxide Level 34H, Anion Gap 2L, Blood Urea Nitrogen 7, Creatinine 0.6, Estimat Glomerular Filtration Rate , Glucose Level 102, Calcium Level 10.1, Phosphorus Level 2.5, Magnesium Level 1.8 Current Medications Medications (Trade) Dose Ordered Sig/Ronaldo Route PRN Reason Start Time Stop Time Status Last Admin Dose Admin Acetaminophen (Tylenol) 650 mg Q6H PRN ORAL Mild Pain/Temp > 100.5 08/17/19 08:30 09/16/19 08:29 08/19/19 17:40 Ascorbic Acid (Vitamin C) 500 mg DAILY ORAL 08/17/19 09:00 09/14/19 08:59 08/21/19 08:32 Aspirin (Ecotrin) 81 mg DAILY ORAL 08/17/19 09:00 09/14/19 08:59 08/21/19 08:32 Atorvastatin Calcium (Lipitor) 10 mg BEDTIME ORAL 08/17/19 21:00 09/14/19 20:59 08/20/19 20:24 Dextrose (Dextrose 50%) 25 ml Q30M PRN IV Hypoglycemia 08/17/19 08:15 09/14/19 06:44 Dextrose (Dextrose 50%) 50 ml Q30M PRN IV Hypoglycemia 08/17/19 08:15 09/14/19 06:44 Heparin Sodium (Porcine) (Heparin 5000 units/ml) 5,000 units EVERY 12 HOURS SUBQ 08/17/19 09:00 09/14/19 08:59 08/21/19 08:34 Insulin Aspart (NovoLOG) BEFORE MEALS AND HS SUBQ 08/17/19 11:30 09/14/19 11:29 08/21/19 06:11 Lactobacillus Acidophilus (Culturelle) 1 tab THREE TIMES A DAY ORAL 08/17/19 09:00 09/14/19 08:59 08/21/19 08:32 Lorazepam (Ativan 2mg/ml 1ml) 1 mg Q4H PRN IM For Anxiety 08/18/19 17:15 08/25/19 17:14 Meropenem 1 gm/ Sodium Chloride 55 ml @ 110 mls/hr Q8H IVPB 08/17/19 12:00 08/22/19 11:59 08/21/19 03:42 Metoprolol Tartrate 5 mg/ Dextrose 60 ml @ 120 mls/hr Q6HR IVPB 08/20/19 22:00 09/19/19 21:59 08/21/19 06:09 Multivitamins (Multivitamins) 1 tab DAILY ORAL 08/17/19 09:00 09/14/19 08:59 08/21/19 08:32 Nitroglycerin (Ntg) 0.4 mg Q5M PRN SL CHEST PAIN 08/17/19 08:15 09/14/19 06:44 Pantoprazole (Protonix) 40 mg DAILY IVP 08/17/19 09:00 09/14/19 08:59 08/21/19 08:32 Quetiapine Fumarate (SEROquel) 25 mg TID ORAL 08/18/19 18:00 09/17/19 17:59 08/21/19 08:32 Piero Lu MD Aug 21, 2019 09:46
--- NOTE | 2019-08-21 11:16 | Infectious Diseases Prog Note ---
Assessment/Plan Assessment/Plan antibiotics : meropenem 08.17.19- A 1. e.coli sepsis 2. e.coli esbl UTI 3. pneumonia 4. leucocytosis resolved 5. diabetes mellitus 6. hypertension P 1. continue meropenem 5 more days 2. will follow up cultures Subjective ROS Limited/Unobtainable: Yes Allergies: Coded Allergies: INFLIXIMAB (Verified Allergy, Unknown, 08/15/19) Objective Vital Signs Last 24 Hour Vital Signs Date Time Temp Pulse Resp B/P (MAP) Pulse Ox O2 Delivery O2 Flow Rate FiO2 08/21/19 11:00 98 19 119/45 (69) 100 08/21/19 10:00 93 19 133/62 (85) 100 08/21/19 09:00 83 23 110/55 (73) 98 08/21/19 08:00 97.6 86 23 118/65 (82) 98 08/21/19 08:00 Nasal Cannula 2.0 Nasal Cannula 2.0 08/21/19 08:00 84 08/21/19 07:00 97 Nasal Cannula 2.0 28 08/21/19 07:00 90 23 127/67 (87) 98 08/21/19 07:00 98 20 97 Nasal Cannula 2.0 28 08/21/19 06:09 102 137/76 08/21/19 06:00 101 21 137/76 (96) 100 08/21/19 05:00 93 25 119/64 (82) 100 08/21/19 04:00 Nasal Cannula 2.0 Nasal Cannula 2.0 08/21/19 04:00 98.0 97 27 141/59 (86) 98 08/21/19 04:00 98 08/21/19 03:00 104 27 142/68 (92) 93 08/21/19 02:00 84 35 143/107 (119) 98 08/21/19 01:00 101 29 142/80 (100) 99 08/21/19 00:56 99 138/62 08/21/19 00:00 92 08/21/19 00:00 98.0 93 25 138/62 (87) 99 08/21/19 00:00 Nasal Cannula 2.0 Nasal Cannula 2.0 08/20/19 23:06 94 134/67 08/20/19 23:00 95 25 134/67 (89) 100 08/20/19 22:00 102 11 137/69 (91) 98 08/20/19 21:00 119 45 144/71 (95) 98 08/20/19 20:24 118 139/124 08/20/19 20:00 129 15 139/124 (129) 98 08/20/19 20:00 131 08/20/19 20:00 Nasal Cannula 2.0 Nasal Cannula 2.0 08/20/19 19:22 126 25 96 Nasal Cannula 2.0 28 08/20/19 19:22 96 Nasal Cannula 2.0 28 08/20/19 19:00 98.6 121 23 145/87 (106) 96 08/20/19 18:00 109 14 139/77 (97) 98 08/20/19 17:00 121 31 95 08/20/19 16:00 97.8 112 29 129/69 (89) 98 08/20/19 16:00 Nasal Cannula 2.0 Nasal Cannula 2.0 08/20/19 15:33 104 08/20/19 15:00 105 26 123/64 (83) 98 08/20/19 14:00 98 24 97/53 (68) 97 08/20/19 13:00 64 26 113/70 (84) 99 08/20/19 12:30 79 29 121/69 (86) 99 08/20/19 12:00 Nasal Cannula 2.0 Nasal Cannula 2.0 08/20/19 12:00 97.9 83 27 106/61 (76) 99 08/20/19 11:39 78 08/20/19 11:30 85 24 91/54 (66) 97 Height (Feet): 5 Height (Inches): 3.00 Weight (Pounds): 145 Respiratory/Chest: lungs clear Cardiovascular: normal rate, regular rhythm, no gallop/murmur Abdomen: soft, non tender Extremities: no edema Laboratory Tests Test 08/21/19 07:20 White Blood Count 7.3 K/UL (4.8-10.8) Red Blood Count 3.68 M/UL (4.20-5.40) L Hemoglobin 10.0 G/DL (12.0-16.0) L Hematocrit 32.8 % (37.0-47.0) L Mean Corpuscular Volume 89 FL (80-99) Mean Corpuscular Hemoglobin 27.1 PG (27.0-31.0) Mean Corpuscular Hemoglobin Concent 30.4 G/DL (32.0-36.0) L Red Cell Distribution Width 17.5 % (11.6-14.8) H Platelet Count 278 K/UL (150-450) Mean Platelet Volume 5.5 FL (6.5-10.1) L Neutrophils (%) (Auto) 64.3 % (45.0-75.0) Lymphocytes (%) (Auto) 22.8 % (20.0-45.0) Monocytes (%) (Auto) 10.8 % (1.0-10.0) H Eosinophils (%) (Auto) 1.5 % (0.0-3.0) Basophils (%) (Auto) 0.6 % (0.0-2.0) Sodium Level 148 MMOL/L (136-145) H Potassium Level 3.8 MMOL/L (3.5-5.1) Chloride Level 113 MMOL/L (98-107) H Carbon Dioxide Level 34 MMOL/L (21-32) H Anion Gap 2 mmol/L (5-15) L Blood Urea Nitrogen 7 mg/dL (7-18) Creatinine 0.6 MG/DL (0.55-1.30) Estimat Glomerular Filtration Rate mL/min (>60) Glucose Level 102 MG/DL (74-106) Calcium Level 10.1 MG/DL (8.5-10.1) Phosphorus Level 2.5 MG/DL (2.5-4.9) Magnesium Level 1.8 MG/DL (1.8-2.4) Current Medications Medications (Trade) Dose Ordered Sig/Ronaldo Route PRN Reason Start Time Stop Time Status Last Admin Dose Admin Acetaminophen (Tylenol) 650 mg Q6H PRN ORAL Mild Pain/Temp > 100.5 08/17/19 08:30 09/16/19 08:29 08/19/19 17:40 Ascorbic Acid (Vitamin C) 500 mg DAILY ORAL 08/17/19 09:00 09/14/19 08:59 08/21/19 08:32 Aspirin (Ecotrin) 81 mg DAILY ORAL 08/17/19 09:00 09/14/19 08:59 08/21/19 08:32 Atorvastatin Calcium (Lipitor) 10 mg BEDTIME ORAL 08/17/19 21:00 09/14/19 20:59 08/20/19 20:24 Dextrose (Dextrose 50%) 25 ml Q30M PRN IV Hypoglycemia 08/17/19 08:15 09/14/19 06:44 Dextrose (Dextrose 50%) 50 ml Q30M PRN IV Hypoglycemia 08/17/19 08:15 09/14/19 06:44 Heparin Sodium (Porcine) (Heparin 5000 units/ml) 5,000 units EVERY 12 HOURS SUBQ 08/17/19 09:00 09/14/19 08:59 08/21/19 08:34 Insulin Aspart (NovoLOG) BEFORE MEALS AND HS SUBQ 08/17/19 11:30 09/14/19 11:29 08/21/19 06:11 Lactobacillus Acidophilus (Culturelle) 1 tab THREE TIMES A DAY ORAL 08/17/19 09:00 09/14/19 08:59 08/21/19 08:32 Lorazepam (Ativan 2mg/ml 1ml) 1 mg Q4H PRN IM For Anxiety 08/18/19 17:15 08/25/19 17:14 Meropenem 1 gm/ Sodium Chloride 55 ml @ 110 mls/hr Q8H IVPB 08/17/19 12:00 08/22/19 11:59 08/21/19 03:42 Metoprolol Tartrate 5 mg/ Dextrose 60 ml @ 120 mls/hr Q6HR IVPB 08/20/19 22:00 09/19/19 21:59 08/21/19 06:09 Multivitamins (Multivitamins) 1 tab DAILY ORAL 08/17/19 09:00 09/14/19 08:59 08/21/19 08:32 Nitroglycerin (Ntg) 0.4 mg Q5M PRN SL CHEST PAIN 08/17/19 08:15 09/14/19 06:44 Pantoprazole (Protonix) 40 mg DAILY IVP 08/17/19 09:00 09/14/19 08:59 08/21/19 08:32 Quetiapine Fumarate (SEROquel) 25 mg TID ORAL 08/18/19 18:00 09/17/19 17:59 08/21/19 08:32 Terry Solorzano MD Aug 21, 2019 11:16
--- NOTE | 2019-08-21 12:15 | Progress Note ---
DATE: 08/15/2019 SUBJECTIVE: The patient is in intensive care unit. Continues to the disoriented, poor insight. communicated rationally. Refusing some medications. MENTAL STATUS EXAM: Patient is alert and disoriented. Mood is in less agitated. Affect is flat. Thought process, there is a paucity of thought content. Thought content, no suicidal, homicidal ideation. Cognition is impaired. Insight and judgment is impaired. ASSESSMENT: 1. Dementia with behavior disturbance. 2. Acute encephalopathy. PLAN: 1. Continue Seroquel. 2. Continue Ativan as needed. 3. The patient lacks capacity to refuse any medication. The patient may not refuse medications. Tal Kwong M.D. DR: Swetha JOB#: [id number] CC: ALEXIS
[2019-08-21] MEDS ORDERED: NS 275ml ONE ×2 (13:41→17:07)
[2019-08-21] MEDS ORDERED: Tubing IV Secondary IV ONE (13:41)
[2019-08-21] MEDS ORDERED: 1/2 NS 1000ml IV ONE ×2 (13:41→17:07)
[2019-08-21] MEDS: Metoprolol Tartrate 50mg tab ORAL SCH (17:33)
[2019-08-22] VITALS (13 sets, daily range): BP systolic 92–131; BP diastolic 48–78
--- NOTE | 2019-08-22 02:30 | Progress Note ---
DATE: 08/21/2019 CARDIOLOGY PROGRESS NOTE SUBJECTIVE: The patient has better heart rate control. She is more compliant with oral medications. She still is on intravenous beta-sandy due to intermittent refusal to take metoprolol by mouth. OBJECTIVE: VITAL SIGNS: Blood pressure 127/67, pulse 90, respirations 23, and afebrile. LUNGS: Bilateral breath sounds. HEART: Regular rhythm and rate. Normal S1, S2. There is a fourth heart sound. ABDOMEN: Soft, nontender. EXTREMITIES: No edema. LABORATORY DATA: Monitor sinus, sinus tachycardia with no recurring SVT. Urine culture, positive E. coli ESBL. White count 7.3, hemoglobin 10. Sodium 148, potassium 3.8, bicarb 34, BUN 7, creatinine 0.6. Magnesium 1.8. IMPRESSION: 1. Dehydration, hypernatremia. 2. Hyperchloremia. 3. Contraction alkalosis. 4. Severe protein-calorie malnutrition. 5. Paroxysmal supraventricular tachyarrhythmias. 6. Chronic diastolic congestive heart failure. PLAN: 1. Transition from IV to oral beta-sandy. 2. Maintain adequate hypotonic IV fluid hydration. 3. Antimicrobials per Infectious Disease insurance healthcare consultant. 4. DVT and stress ulcer prophylaxes. Smooth Wilson M.D. DR: MAURY JOB#: [id number] CC:
--- NOTE | 2019-08-22 03:45 | Progress Note ---
DATE: 08/21/2019 SUBJECTIVE: The patient is more alert, less confused, able to answer the questions. The patient has a history of anxiety. MENTAL STATUS EXAMINATION: The patient is alert and oriented times self and place. Poor insight into the situation she is in. Mood is neutral. Affect is constricted, congruent with mood. Thought process is concrete. Thought content, no suicidal or homicidal ideation. Encephalopathy is improving. PLAN: We will continue current medications. Provide the patient with reality orientation and supportive therapy. Tal Kwong M.D. DR: NBA JOB#: [id number] CC:
[2019-08-22] MEDS: Meropenem 1 GM in NS 55 ML IVPB SCH ×4 (04:30→19:48)
[2019-08-22 06:14] LABS: BASOPHILS % (AUTO) 0.6 % (0.0-2.0); EOSINOPHILS % (AUTO) 2.1 % (0.0-3.0); HEMOGLOBIN 10.4 G/DL (12.0-16.0); LYMPHOCYTES % (AUTO) 27.8 % (20.0-45.0); MEAN CORPUSCULAR VOLUME 89 FL (80-99); MONOCYTES % (AUTO) 8.7 % (1.0-10.0); NEUTROPHILS % (AUTO) 60.8 % (45.0-75.0); PLATELET COUNT 310 K/UL (150-450); RED BLOOD COUNT 3.84 M/UL (4.20-5.40); RED CELL DISTRIBUTION WIDTH 17.8 % (11.6-14.8)
[2019-08-22] MEDS: NovoLOG Insulin Flexpen SUBQ SCH ×4 (06:14→21:00)
[2019-08-22 06:43] LABS: ANION GAP 2 mmol/L (5-15); BLOOD UREA NITROGEN 7 mg/dL (7-18); CALCIUM 10.2 MG/DL (8.5-10.1); CARBON DIOXIDE 34 MMOL/L (21-32); CHLORIDE 111 MMOL/L (98-107); CREATININE 0.8 MG/DL (0.55-1.30); POTASSIUM 3.9 MMOL/L (3.5-5.1); SODIUM 147 MMOL/L (136-145)
--- NOTE | 2019-08-22 08:34 | Pulmonology Progress Note ---
Assessment/Plan Assessment/Plan Impression: Pneumonia Urinary tract infection + Sepsis + blood cultures Paroxysmal atrial fibrillation Asthma/COPD Congestive Heart Failure Diabetes Hypertension Hyperlipidemia Generalized weakness Tachyarrythmia Protein calorie malnutrition acute encephalopathy Plan IV Antibiotics per ID cultures reviewed O2 as needed HHN with albuterol - as is cardiology noted on beta blockade diurese with caution CXR for clearing- repeat Aspiration precautions ST follow up monitor for change monitor protein levels monitor skin exam transfer to [facility] if cleared by all medications/laboratory data/nursing notes/ICU care reviewed in detail note reviewed and edited care discussed with RN and RT ICU time spent 40 minutes Subjective Allergies: Coded Allergies: INFLIXIMAB (Verified Allergy, Unknown, 08/15/19) Subjective care noted noted congestion but better overall and no distress on oxygen- low flow heart rate better controlled cards noted and reviewed ICU care reviewed d/w other MDs Objective Last 24 Hour Vital Signs Date Time Temp Pulse Resp B/P (MAP) Pulse Ox O2 Delivery O2 Flow Rate FiO2 08/22/19 06:00 100 23 120/61 (80) 98 08/22/19 05:00 102 23 125/65 (85) 98 08/22/19 04:00 Nasal Cannula 2.0 Nasal Cannula 2.0 08/22/19 04:00 90 08/22/19 04:00 97.9 100 21 106/58 (74) 98 08/22/19 03:00 94 13 106/58 (74) 100 08/22/19 02:00 98 19 99/48 (65) 100 08/22/19 01:00 94 20 92/52 (65) 100 08/22/19 00:00 98 08/22/19 00:00 Nasal Cannula 2.0 Nasal Cannula 2.0 08/22/19 00:00 98.0 101 10 108/52 (70) 100 08/21/19 23:00 78 24 100/42 (61) 100 08/21/19 22:00 77 38 104/75 (85) 99 08/21/19 21:00 77 26 93/48 (63) 100 08/21/19 20:00 75 08/21/19 20:00 Nasal Cannula 2.0 Nasal Cannula 2.0 08/21/19 20:00 74 29 121/91 (101) 100 08/21/19 19:59 98.1 08/21/19 19:00 97.9 71 22 107/56 (73) 100 08/21/19 18:00 106 18 99/60 (73) 100 08/21/19 17:33 114 117/58 08/21/19 17:00 103 30 117/58 (77) 99 08/21/19 16:51 Nasal Cannula 2.0 Nasal Cannula 2.0 08/21/19 16:00 Nasal Cannula 2.0 Nasal Cannula 2.0 08/21/19 16:00 98.1 95 26 105/48 (67) 99 08/21/19 16:00 100 08/21/19 15:00 99 26 143/78 (99) 99 08/21/19 14:00 102 26 127/71 (89) 99 08/21/19 13:00 100 26 111/49 (69) 99 08/21/19 12:10 99 126/69 08/21/19 12:00 97.8 100 26 126/69 (88) 100 08/21/19 12:00 103 08/21/19 12:00 Nasal Cannula 2.0 Nasal Cannula 2.0 08/21/19 11:00 98 19 119/45 (69) 100 08/21/19 10:00 93 19 133/62 (85) 100 08/21/19 09:00 83 23 110/55 (73) 98 Intake and Output 08/21/19 08/22/19 19:00 07:00 Intake Total 260 ml Output Total 1025 ml 770 ml Balance -765 ml -770 ml Intake Oral 260 ml Output Urine Total 1025 ml 770 ml Objective WDWN on oxygen no significant distress reduced breath sounds bilaterally with some rhonchi [id number] without MRG NABS nontender no HSM no CC some edema- pitting nonfocal weak overall reviewed and edited Laboratory Tests 08/22/19 05:40: White Blood Count 7.0, Red Blood Count 3.84L, Hemoglobin 10.4L, Hematocrit 34.0L , Mean Corpuscular Volume 89, Mean Corpuscular Hemoglobin 27.0, Mean Corpuscular Hemoglobin Concent 30.4L, Red Cell Distribution Width 17.8H, Platelet Count 310, Mean Platelet Volume 5.5L, Neutrophils (%) (Auto) 60.8, Lymphocytes (%) (Auto) 27.8, Monocytes (%) (Auto) 8.7, Eosinophils (%) (Auto) 2.1, Basophils (%) (Auto) 0.6, Sodium Level 147H, Potassium Level 3.9, Chloride Level 111H, Carbon Dioxide Level 34H, Anion Gap 2L, Blood Urea Nitrogen 7, Creatinine 0.8, Estimat Glomerular Filtration Rate , Glucose Level 98, Calcium Level 10.2H Current Medications Medications (Trade) Dose Ordered Sig/Ronaldo Route PRN Reason Start Time Stop Time Status Last Admin Dose Admin Acetaminophen (Tylenol) 650 mg Q6H PRN ORAL Mild Pain/Temp > 100.5 08/17/19 08:30 09/16/19 08:29 08/21/19 18:34 Ascorbic Acid (Vitamin C) 500 mg DAILY ORAL 08/17/19 09:00 09/14/19 08:59 08/21/19 08:32 Aspirin (Ecotrin) 81 mg DAILY ORAL 08/17/19 09:00 09/14/19 08:59 08/21/19 08:32 Atorvastatin Calcium (Lipitor) 10 mg BEDTIME ORAL 08/17/19 21:00 09/14/19 20:59 08/21/19 20:37 Dextrose (Dextrose 50%) 25 ml Q30M PRN IV Hypoglycemia 08/17/19 08:15 09/14/19 06:44 Dextrose (Dextrose 50%) 50 ml Q30M PRN IV Hypoglycemia 08/17/19 08:15 09/14/19 06:44 Heparin Sodium (Porcine) (Heparin 5000 units/ml) 5,000 units EVERY 12 HOURS SUBQ 08/17/19 09:00 09/14/19 08:59 08/21/19 20:39 Insulin Aspart (NovoLOG) BEFORE MEALS AND HS SUBQ 08/17/19 11:30 09/14/19 11:29 08/22/19 06:14 Lactobacillus Acidophilus (Culturelle) 1 tab THREE TIMES A DAY ORAL 08/17/19 09:00 09/14/19 08:59 08/21/19 17:34 Lorazepam (Ativan 2mg/ml 1ml) 1 mg Q4H PRN IM For Anxiety 08/18/19 17:15 08/25/19 17:14 Meropenem 1 gm/ Sodium Chloride 55 ml @ 110 mls/hr Q8H IVPB 08/21/19 12:00 08/26/19 11:59 08/22/19 04:30 Metoprolol Tartrate (Lopressor) 50 mg Q12HR ORAL 08/21/19 17:30 09/20/19 17:29 08/21/19 17:33 Multivitamins (Multivitamins) 1 tab DAILY ORAL 08/17/19 09:00 09/14/19 08:59 08/21/19 08:32 Nitroglycerin (Ntg) 0.4 mg Q5M PRN SL CHEST PAIN 08/17/19 08:15 09/14/19 06:44 Pantoprazole (Protonix) 40 mg DAILY IVP 08/17/19 09:00 09/14/19 08:59 08/21/19 08:32 Quetiapine Fumarate (SEROquel) 25 mg TID ORAL 08/18/19 18:00 09/17/19 17:59 08/21/19 17:33 Piero Lu MD Aug 22, 2019 08:34
[2019-08-22] MEDS: Ascorbic Acid 500mg tab ORAL SCH (08:52)
[2019-08-22] MEDS: Metoprolol Tartrate 50mg tab ORAL SCH ×2 (08:52→20:37)
[2019-08-22] MEDS: Lactobacillus-GG tablet ORAL SCH ×3 (08:52→17:22)
[2019-08-22] MEDS: Pantoprazole Inj IVP SCH (08:52)
[2019-08-22] MEDS: Aspirin EC 81mg tab ORAL SCH (08:52)
[2019-08-22] MEDS: Heparin 5000 units/ml inj SUBQ SCH ×2 (08:53→21:00)
[2019-08-22] MEDS ORDERED: Nitroglycerin Subl 0.4mg tab SL PRN (10:05)
--- NOTE | 2019-08-22 10:27 | Infectious Diseases Prog Note ---
Assessment/Plan Assessment/Plan A 1. E.coli sepsis 2. E.coli esbl UTI 3. pneumonia/ atelectasis 4. leucocytosis resolved 5. diabetes mellitus 6. 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 Anemia P 1. continue meropenem 4 more days 2. will follow up cultures Subjective ROS Limited/Unobtainable: Yes Constitutional: Reports: other - doing better, transferred from ICU to step down Respiratory: Reports: no symptoms Gastrointestinal/Abdominal: Reports: no symptoms Genitourinary: Reports: no symptoms Allergies: Coded Allergies: INFLIXIMAB (Verified Allergy, Unknown, 08/15/19) Objective Vital Signs Last 24 Hour Vital Signs Date Time Temp Pulse Resp B/P (MAP) Pulse Ox O2 Delivery O2 Flow Rate FiO2 08/22/19 09:09 97 Nasal Cannula 2.0 28 08/22/19 09:09 102 22 97 Nasal Cannula 2.0 28 08/22/19 09:00 113 11 122/67 (85) 94 08/22/19 08:52 109 112/51 08/22/19 08:00 107 08/22/19 08:00 97.5 109 16 112/51 (71) 97 08/22/19 08:00 Nasal Cannula 2.0 Nasal Cannula 2.0 08/22/19 06:00 100 23 120/61 (80) 98 08/22/19 05:00 102 23 125/65 (85) 98 08/22/19 04:00 Nasal Cannula 2.0 Nasal Cannula 2.0 08/22/19 04:00 90 08/22/19 04:00 97.9 100 21 106/58 (74) 98 08/22/19 03:00 94 13 106/58 (74) 100 08/22/19 02:00 98 19 99/48 (65) 100 08/22/19 01:00 94 20 92/52 (65) 100 08/22/19 00:00 98 08/22/19 00:00 Nasal Cannula 2.0 Nasal Cannula 2.0 08/22/19 00:00 98.0 101 10 108/52 (70) 100 08/21/19 23:00 78 24 100/42 (61) 100 08/21/19 22:00 77 38 104/75 (85) 99 08/21/19 21:00 77 26 93/48 (63) 100 08/21/19 20:00 75 08/21/19 20:00 Nasal Cannula 2.0 Nasal Cannula 2.0 08/21/19 20:00 74 29 121/91 (101) 100 08/21/19 19:59 98.1 08/21/19 19:00 97.9 71 22 107/56 (73) 100 08/21/19 18:00 106 18 99/60 (73) 100 08/21/19 17:33 114 117/58 08/21/19 17:00 103 30 117/58 (77) 99 08/21/19 16:51 Nasal Cannula 2.0 Nasal Cannula 2.0 08/21/19 16:00 Nasal Cannula 2.0 Nasal Cannula 2.0 08/21/19 16:00 98.1 95 26 105/48 (67) 99 08/21/19 16:00 100 08/21/19 15:00 99 26 143/78 (99) 99 08/21/19 14:00 102 26 127/71 (89) 99 08/21/19 13:00 100 26 111/49 (69) 99 08/21/19 12:10 99 126/69 08/21/19 12:00 97.8 100 26 126/69 (88) 100 08/21/19 12:00 103 08/21/19 12:00 Nasal Cannula 2.0 Nasal Cannula 2.0 08/21/19 11:00 98 19 119/45 (69) 100 Height (Feet): 5 Height (Inches): 3.00 Weight (Pounds): 145 General Appearance: no acute distress HEENT: mucous membranes moist Respiratory/Chest: lungs clear Cardiovascular: tachycardia Abdomen: soft, non tender Genitourinary: other - Bruce catheter Extremities: no edema Neurologic/Psychiatric: alert, responsive Laboratory Tests Test 08/22/19 05:40 White Blood Count 7.0 K/UL (4.8-10.8) Red Blood Count 3.84 M/UL (4.20-5.40) L Hemoglobin 10.4 G/DL (12.0-16.0) L Hematocrit 34.0 % (37.0-47.0) L Mean Corpuscular Volume 89 FL (80-99) Mean Corpuscular Hemoglobin 27.0 PG (27.0-31.0) Mean Corpuscular Hemoglobin Concent 30.4 G/DL (32.0-36.0) L Red Cell Distribution Width 17.8 % (11.6-14.8) H Platelet Count 310 K/UL (150-450) Mean Platelet Volume 5.5 FL (6.5-10.1) L Neutrophils (%) (Auto) 60.8 % (45.0-75.0) Lymphocytes (%) (Auto) 27.8 % (20.0-45.0) Monocytes (%) (Auto) 8.7 % (1.0-10.0) Eosinophils (%) (Auto) 2.1 % (0.0-3.0) Basophils (%) (Auto) 0.6 % (0.0-2.0) Sodium Level 147 MMOL/L (136-145) H Potassium Level 3.9 MMOL/L (3.5-5.1) Chloride Level 111 MMOL/L (98-107) H Carbon Dioxide Level 34 MMOL/L (21-32) H Anion Gap 2 mmol/L (5-15) L Blood Urea Nitrogen 7 mg/dL (7-18) Creatinine 0.8 MG/DL (0.55-1.30) Estimat Glomerular Filtration Rate mL/min (>60) Glucose Level 98 MG/DL (74-106) Calcium Level 10.2 MG/DL (8.5-10.1) H Current Medications Medications (Trade) Dose Ordered Sig/Ronaldo Route PRN Reason Start Time Stop Time Status Last Admin Dose Admin Acetaminophen (Tylenol) 650 mg Q6H PRN ORAL Mild Pain/Temp > 100.5 08/22/19 10:30 09/16/19 10:29 Ascorbic Acid (Vitamin C) 500 mg DAILY ORAL 08/23/19 09:00 09/14/19 08:59 Aspirin (Ecotrin) 81 mg DAILY ORAL 08/23/19 09:00 09/14/19 08:59 Atorvastatin Calcium (Lipitor) 10 mg BEDTIME ORAL 08/22/19 21:00 09/14/19 20:59 Dextrose (Dextrose 50%) 25 ml Q30M PRN IV Hypoglycemia 08/22/19 10:15 09/14/19 06:44 Dextrose (Dextrose 50%) 50 ml Q30M PRN IV Hypoglycemia 08/22/19 10:15 09/14/19 06:44 Heparin Sodium (Porcine) (Heparin 5000 units/ml) 5,000 units EVERY 12 HOURS SUBQ 08/22/19 21:00 09/14/19 08:59 Insulin Aspart (NovoLOG) BEFORE MEALS AND HS SUBQ 08/22/19 11:30 09/14/19 11:29 Lactobacillus Acidophilus (Culturelle) 1 tab THREE TIMES A DAY ORAL 08/22/19 13:00 09/14/19 08:59 Lorazepam (Ativan 2mg/ml 1ml) 1 mg Q4H PRN IM For Anxiety 08/22/19 13:15 08/25/19 17:14 Meropenem 1 gm/ Sodium Chloride 55 ml @ 110 mls/hr Q8H IVPB 08/22/19 12:00 08/27/19 11:59 Metoprolol Tartrate (Lopressor) 50 mg Q12HR ORAL 08/22/19 21:00 09/20/19 17:29 Multivitamins (Multivitamins) 1 tab DAILY ORAL 08/23/19 09:00 09/14/19 08:59 Nitroglycerin (Ntg) 0.4 mg Q5M PRN SL CHEST PAIN 08/22/19 10:05 09/14/19 06:44 Pantoprazole (Protonix) 40 mg DAILY IVP 08/23/19 09:00 09/14/19 08:59 Quetiapine Fumarate (SEROquel) 25 mg TID ORAL 08/22/19 13:00 09/17/19 17:59 Scotty Dumont MD Aug 22, 2019 10:27
--- NOTE | 2019-08-22 12:14 | Cardiology Report ---
APPROVED REPORT EXAM: Two-dimensional and M-mode echocardiogram with Doppler and color Doppler. INDICATION Supraventricular tachycardia M-Mode DIMENSIONS IVSd1.1 (0.7-1.1cm)Left Atrium (MM)3.5 (1.6-4.0cm) LVDd3.1 (3.5-5.6cm)Aortic Root3.7 (2.0-3.7cm) PWd1.2 (0.7-1.1cm)Aortic Cusp Exc.1.5 (1.5-2.0cm) IVSs1.4 cm LVDs2.0 (2.5-4.0cm) PWs1.8 cm Other Information Quality : Poor Study quality precludes accurate assessment of regional wall motion. Normal left ventricular chamber size, systolic function and wall motion to extent visualized. Left ventricular ejection fraction estimated to be grossly normal . No left ventricular hypertrophy. All other cardiac chamber sizes are within normal limits. Focal aortic valve sclerosis with normal cusp excursion. Thickened mitral valve leaflets with normal excursion. Mitral annulus and aortic root calcification. Normal pulmonic valve structure. Normal tricuspid valve structure. IVC at normal size with physiologic collapse . A color flow and spectral Doppler study was performed and revealed: No aortic insufficiency. Trace mitral regurgitation. Left ventricular diastolic function not diagnostic . Trace tricuspid regurgitation. Tricuspid systolic velocities suggests peak right ventricular systolic pressure of 18 mmHg.
[2019-08-22] MEDS ORDERED: LORazepam Inj 2mg/ml 1ml IM PRN (13:15)
--- NOTE | 2019-08-22 13:22 | General Progress Note ---
Assessment/Plan Problem List: (1) Diabetes ICD Codes: E11.9 - Type 2 diabetes mellitus without complications SNOMED: 82151488 (2) Hypertension ICD Codes: I10 - Essential (primary) hypertension SNOMED: 10350654 (3) Anemia ICD Codes: D64.9 - Anemia, unspecified SNOMED: 912657585 (4) UTI (urinary tract infection) ICD Codes: N39.0 - Urinary tract infection, site not specified SNOMED: 53716985 (5) Tachycardia ICD Codes: R00.0 - Tachycardia, unspecified SNOMED: 6604240 (6) Pneumonia ICD Codes: J18.9 - Pneumonia, unspecified organism SNOMED: 611670622 (7) Bacteremia ICD Codes: R78.81 - Bacteremia SNOMED: 1991533 Status: stable Assessment/Plan: monitor hr/tele b-blockade compliance stressed iv abx per id follow up cultures dvt/stress ulcer prophylaxis psych rx MAXI Subjective ROS Limited/Unobtainable: No Constitutional: Reports: malaise, weakness HEENT: Reports: no symptoms Cardiovascular: Reports: no symptoms Respiratory: Reports: no symptoms Gastrointestinal/Abdominal: Reports: no symptoms Genitourinary: Reports: no symptoms Neurologic/Psychiatric: Reports: anxiety Endocrine: Reports: no symptoms Hematologic/Lymphatic: Reports: anemia Allergies: Coded Allergies: INFLIXIMAB (Verified Allergy, Unknown, 08/15/19) All Systems: reviewed and negative except above Subjective no events. w/o complaints. no cp/sob. eating well. compliant with rx. HR controlled. Objective Last 24 Hour Vital Signs Date Time Temp Pulse Resp B/P (MAP) Pulse Ox O2 Delivery O2 Flow Rate FiO2 08/22/19 12:00 Nasal Cannula 2.0 Nasal Cannula 2.0 08/22/19 10:02 78 08/22/19 10:00 Nasal Cannula 2.0 Nasal Cannula 2.0 08/22/19 09:09 97 Nasal Cannula 2.0 28 08/22/19 09:09 102 22 97 Nasal Cannula 2.0 28 08/22/19 09:00 113 11 122/67 (85) 94 08/22/19 08:52 109 112/51 08/22/19 08:00 107 08/22/19 08:00 97.5 109 16 112/51 (71) 97 08/22/19 08:00 Nasal Cannula 2.0 Nasal Cannula 2.0 08/22/19 06:00 100 23 120/61 (80) 98 08/22/19 05:00 102 23 125/65 (85) 98 08/22/19 04:00 Nasal Cannula 2.0 Nasal Cannula 2.0 08/22/19 04:00 90 08/22/19 04:00 97.9 100 21 106/58 (74) 98 08/22/19 03:00 94 13 106/58 (74) 100 08/22/19 02:00 98 19 99/48 (65) 100 08/22/19 01:00 94 20 92/52 (65) 100 08/22/19 00:00 98 08/22/19 00:00 Nasal Cannula 2.0 Nasal Cannula 2.0 08/22/19 00:00 98.0 101 10 108/52 (70) 100 08/21/19 23:00 78 24 100/42 (61) 100 08/21/19 22:00 77 38 104/75 (85) 99 08/21/19 21:00 77 26 93/48 (63) 100 08/21/19 20:00 75 08/21/19 20:00 Nasal Cannula 2.0 Nasal Cannula 2.0 08/21/19 20:00 74 29 121/91 (101) 100 08/21/19 19:59 98.1 08/21/19 19:00 97.9 71 22 107/56 (73) 100 08/21/19 18:00 106 18 99/60 (73) 100 08/21/19 17:33 114 117/58 08/21/19 17:00 103 30 117/58 (77) 99 08/21/19 16:51 Nasal Cannula 2.0 Nasal Cannula 2.0 08/21/19 16:00 Nasal Cannula 2.0 Nasal Cannula 2.0 08/21/19 16:00 98.1 95 26 105/48 (67) 99 08/21/19 16:00 100 08/21/19 15:00 99 26 143/78 (99) 99 08/21/19 14:00 102 26 127/71 (89) 99 Intake and Output 08/21/19 08/22/19 19:00 07:00 Intake Total 260 ml Output Total 1025 ml 770 ml Balance -765 ml -770 ml Intake Oral 260 ml Output Urine Total 1025 ml 770 ml Laboratory Tests 08/22/19 05:40: White Blood Count 7.0, Red Blood Count 3.84L, Hemoglobin 10.4L, Hematocrit 34.0L , Mean Corpuscular Volume 89, Mean Corpuscular Hemoglobin 27.0, Mean Corpuscular Hemoglobin Concent 30.4L, Red Cell Distribution Width 17.8H, Platelet Count 310, Mean Platelet Volume 5.5L, Neutrophils (%) (Auto) 60.8, Lymphocytes (%) (Auto) 27.8, Monocytes (%) (Auto) 8.7, Eosinophils (%) (Auto) 2.1, Basophils (%) (Auto) 0.6, Sodium Level 147H, Potassium Level 3.9, Chloride Level 111H, Carbon Dioxide Level 34H, Anion Gap 2L, Blood Urea Nitrogen 7, Creatinine 0.8, Estimat Glomerular Filtration Rate , Glucose Level 98, Calcium Level 10.2H Height (Feet): 5 Height (Inches): 3.00 Weight (Pounds): 145 Objective General Appearance: WD/WN, alert Neck: supple Cardiovascular: regular rhythm, tachycardia Respiratory/Chest: chest wall non-tender, lungs clear, normal breath sounds, no respiratory distress Abdomen: normal bowel sounds, non tender, soft, no organomegaly Edema: 1+ Leg (L), 1+ Leg (R) Neurologic: hoop maker II-XII grossly normal, no motor/sensory deficits, alert, oriented x 3, responsive Carmine Krishna MD Aug 22, 2019 13:22
[2019-08-22] MEDS ORDERED: NS 275ml ONE (15:12)
[2019-08-22] MEDS: Guaifenesin/DM 10ml syrup ORAL PRN (21:38)
--- NOTE | 2019-08-22 23:30 | Progress Note ---
DATE: 08/22/2019 CARDIOLOGY PROGRESS NOTE SUBJECTIVE: The patient seems to be more compliant, more comfortable without shortness of breath. Appetite and oral intake improved. The patient is taking medications including beta-sandy now. OBJECTIVE: VITAL SIGNS: Blood pressure 122/67, heart rate 113, respiratory rate is 11 to 23, the patient is afebrile. LUNGS: Good breath sounds. CARDIAC: Regular rhythm and rate. Normal S1, S2. ABDOMEN: Soft. EXTREMITIES: Trace edema. LABORATORY DATA: Monitored rhythm is sinus and sinus tachycardia. No evidence of SVT noted. White count 7, hemoglobin 10.4. Sodium 147, potassium 3.9, bicarb 34, BUN 7, creatinine 0.8. IMPRESSION: 1. Pneumonia. 2. Urinary tract infection. 3. Sepsis. 4. Bacteremia. 5. Paroxysmal supraventricular tachyarrhythmia. 6. Secondary sinus tachycardia. 7. Acute on chronic diastolic congestive heart failure. 8. Hypertensive heart disease. 9. Protein-calorie malnutrition. 10. Toxic encephalopathy. PLAN: 1. Antimicrobials. 2. Respiratory hygiene. 3. Limits beta agonist namely albuterol. 4. Cautiously titrate oral beta-sandy. 5. Monitor volume status, cardiorenal parameters. 6. Consider diuretics based on clinical findings. 7. Review chest radiograph. 8. Trend natriuretic peptide assay. Smooth Wilson M.D. DR: WINSOME JOB#: [id number] CC:
[2019-08-23] VITALS: BP 122/67
[2019-08-23] MEDS: Meropenem 1 GM in NS 55 ML IVPB SCH ×3 (03:24→19:49)
[2019-08-23] MEDS: Guaifenesin/DM 10ml syrup ORAL PRN ×3 (03:30→21:15)
[2019-08-23 04:00] VITALS: BP 116/61
[2019-08-23 06:14] LABS: BASOPHILS % (AUTO) 0.7 % (0.0-2.0); EOSINOPHILS % (AUTO) 1.6 % (0.0-3.0); HEMOGLOBIN 9.4 G/DL (12.0-16.0); LYMPHOCYTES % (AUTO) 21.8 % (20.0-45.0); MEAN CORPUSCULAR VOLUME 90 FL (80-99); NEUTROPHILS % (AUTO) 66.9 % (45.0-75.0); PLATELET COUNT 296 K/UL (150-450); RED BLOOD COUNT 3.45 M/UL (4.20-5.40); RED CELL DISTRIBUTION WIDTH 17.5 % (11.6-14.8); WHITE BLOOD COUNT 6.6 K/UL (4.8-10.8)
[2019-08-23] MEDS: NovoLOG Insulin Flexpen SUBQ SCH ×4 (06:30→21:20)
[2019-08-23 06:44] LABS: ALANINE AMINOTRANSFERASE 17 U/L (12-78); ALBUMIN 2.1 G/DL (3.4-5.0); ALBUMIN/GLOBULIN RATIO 0.6 (1.0-2.7); ALKALINE PHOSPHATASE 85 U/L (46-116); ANION GAP 2 mmol/L (5-15); ASPARTATE AMINO TRANSFERASE 21 U/L (15-37); BILIRUBIN,TOTAL 0.3 MG/DL (0.2-1.0); BLOOD UREA NITROGEN 10 mg/dL (7-18); CALCIUM 10.1 MG/DL (8.5-10.1); CARBON DIOXIDE 33 MMOL/L (21-32); CHLORIDE 111 MMOL/L (98-107); CREATININE 0.8 MG/DL (0.55-1.30); SODIUM 146 MMOL/L (136-145)
[2019-08-23 08:00] VITALS: BP 148/81
--- NOTE | 2019-08-23 08:32 | Pulmonology Progress Note ---
Assessment/Plan Assessment/Plan Impression: Pneumonia Urinary tract infection + Sepsis + blood cultures Paroxysmal atrial fibrillation Asthma/COPD Congestive Heart Failure Diabetes Hypertension Hyperlipidemia Generalized weakness Tachyarrythmia Protein calorie malnutrition acute encephalopathy Plan IV Antibiotics per ID O2 as needed HHN with albuterol PRN cardiology noted on beta blockade diurese with caution CXR pending Aspiration precautions monitor for change monitor protein levels monitor skin exam MAXI care impression, plan, and exam edited and reviewed in detail care discussed with RN Subjective Allergies: Coded Allergies: INFLIXIMAB (Verified Allergy, Unknown, 08/15/19) Subjective care noted less distress on oxygen- low flow cards noted and reviewed out of ICU Objective Last 24 Hour Vital Signs Date Time Temp Pulse Resp B/P (MAP) Pulse Ox O2 Delivery O2 Flow Rate FiO2 08/23/19 04:00 98.0 82 20 116/61 (79) 99 08/23/19 04:00 89 08/23/19 04:00 Nasal Cannula 2.0 Nasal Cannula 2.0 08/23/19 00:00 97.9 74 20 122/67 (85) 99 08/23/19 00:00 74 08/23/19 00:00 Nasal Cannula 2.0 Nasal Cannula 2.0 08/22/19 20:37 108 131/58 08/22/19 20:00 103 08/22/19 20:00 Nasal Cannula 2.0 Nasal Cannula 2.0 08/22/19 20:00 98.1 109 21 131/78 (95) 99 08/22/19 16:00 79 08/22/19 16:00 97.6 80 21 118/66 (83) 100 08/22/19 16:00 Nasal Cannula 2.0 Nasal Cannula 2.0 08/22/19 12:00 98.2 81 20 97/54 (68) 100 08/22/19 12:00 Nasal Cannula 2.0 Nasal Cannula 2.0 08/22/19 11:43 72 08/22/19 10:02 78 08/22/19 10:00 97.5 69 20 98/54 (69) 94 08/22/19 10:00 Nasal Cannula 2.0 Nasal Cannula 2.0 08/22/19 09:09 97 Nasal Cannula 2.0 28 08/22/19 09:09 102 22 97 Nasal Cannula 2.0 28 08/22/19 09:00 113 11 122/67 (85) 94 08/22/19 08:52 109 112/51 Intake and Output 08/22/19 08/23/19 19:00 07:00 Intake Total 705 ml 350 ml Output Total 890 ml 1350 ml Balance -185 ml -1000 ml Intake Oral 650 ml 240 ml IV Total 55 ml 110 ml Output Urine Total 890 ml 1350 ml Objective WDWN on oxygen NAD reduced breath sounds bilaterally without rhonchi or wheeze [id number] without MRG NABS nontender no HSM no CC some edema- pitting but improved nonfocal weak overall reviewed and edited Laboratory Tests 08/23/19 05:30: White Blood Count 6.6, Red Blood Count 3.45L, Hemoglobin 9.4L, Hematocrit 31.0L , Mean Corpuscular Volume 90, Mean Corpuscular Hemoglobin 27.3, Mean Corpuscular Hemoglobin Concent 30.4L, Red Cell Distribution Width 17.5H, Platelet Count 296, Mean Platelet Volume 5.6L, Neutrophils (%) (Auto) 66.9, Lymphocytes (%) (Auto) 21.8, Monocytes (%) (Auto) 9.0, Eosinophils (%) (Auto) 1.6, Basophils (%) (Auto) 0.7, Sodium Level 146H, Potassium Level 4.0, Chloride Level 111H, Carbon Dioxide Level 33H, Anion Gap 2L, Blood Urea Nitrogen 10, Creatinine 0.8, Estimat Glomerular Filtration Rate , Glucose Level 105, Calcium Level 10.1, Magnesium Level 1.7L, Total Bilirubin 0.3, Aspartate Amino Transf ( AST/SGOT) 21, Alanine Aminotransferase (ALT/SGPT) 17, Alkaline Phosphatase 85, Pro-B-Type Natriuretic Peptide 284H, Total Protein 5.7L, Albumin 2.1L, Globulin 3.6, Albumin/Globulin Ratio 0.6L Current Medications Medications (Trade) Dose Ordered Sig/Ronaldo Route PRN Reason Start Time Stop Time Status Last Admin Dose Admin Acetaminophen (Tylenol) 650 mg Q6H PRN ORAL Mild Pain/Temp > 100.5 08/22/19 10:30 09/16/19 10:29 08/22/19 19:49 Ascorbic Acid (Vitamin C) 500 mg DAILY ORAL 08/23/19 09:00 09/14/19 08:59 Aspirin (Ecotrin) 81 mg DAILY ORAL 08/23/19 09:00 11/5/19 08:59 Atorvastatin Calcium (Lipitor) 10 mg BEDTIME ORAL 08/22/19 21:00 09/14/19 20:59 08/22/19 20:37 Dextrose (Dextrose 50%) 25 ml Q30M PRN IV Hypoglycemia 08/22/19 10:15 09/14/19 06:44 Dextrose (Dextrose 50%) 50 ml Q30M PRN IV Hypoglycemia 08/22/19 10:15 09/14/19 06:44 Guaifenesin/ Dextromethorphan (Robitussin DM Syrup) 15 ml Q4H PRN ORAL For Cough 08/22/19 21:30 09/21/19 21:29 08/23/19 03:30 Heparin Sodium (Porcine) (Heparin 5000 units/ml) 5,000 units EVERY 12 HOURS SUBQ 08/22/19 21:00 09/14/19 08:59 Insulin Aspart (NovoLOG) BEFORE MEALS AND HS SUBQ 08/22/19 11:30 09/14/19 11:29 Lactobacillus Acidophilus (Culturelle) 1 tab THREE TIMES A DAY ORAL 08/22/19 13:00 09/14/19 08:59 08/22/19 17:22 Lorazepam (Ativan 2mg/ml 1ml) 1 mg Q4H PRN IM For Anxiety 08/22/19 13:15 08/25/19 17:14 Meropenem 1 gm/ Sodium Chloride 55 ml @ 110 mls/hr Q8H IVPB 08/22/19 12:00 08/26/19 11:59 08/23/19 03:24 Metoprolol Tartrate (Lopressor) 50 mg Q12HR ORAL 08/22/19 21:00 09/20/19 17:29 08/22/19 20:37 Multivitamins (Multivitamins) 1 tab DAILY ORAL 08/23/19 09:00 09/14/19 08:59 Nitroglycerin (Ntg) 0.4 mg Q5M PRN SL CHEST PAIN 08/22/19 10:05 09/14/19 06:44 Pantoprazole (Protonix) 40 mg DAILY IVP 08/23/19 09:00 09/14/19 08:59 Quetiapine Fumarate (SEROquel) 25 mg TID ORAL 08/22/19 13:00 09/17/19 17:59 08/22/19 17:22 Piero Lu MD Aug 23, 2019 08:32
[2019-08-23] MEDS ORDERED: Pantoprazole Inj IVP SCH (09:00)
[2019-08-23] MEDS: Heparin 5000 units/ml inj SUBQ SCH ×2 (09:00→21:16)
[2019-08-23] MEDS ORDERED: Aspirin EC 81mg tab ORAL SCH (09:00)
[2019-08-23] MEDS ORDERED: Ascorbic Acid 500mg tab ORAL SCH (09:00)
[2019-08-23] MEDS: Lactobacillus-GG tablet ORAL SCH ×3 (09:06→17:36)
[2019-08-23] MEDS: Metoprolol Tartrate 50mg tab ORAL SCH ×2 (09:06→21:15)
--- NOTE | 2019-08-23 10:03 | Infectious Diseases Prog Note ---
Assessment/Plan Assessment/Plan A 1. E.coli sepsis 2. E.coli esbl UTI 3. pneumonia/ atelectasis 4. leucocytosis resolved 5. diabetes mellitus 6. 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 Anemia P 1. continue meropenem 3 more days 2. will follow up cultures Subjective ROS Limited/Unobtainable: Yes Constitutional: Denies: fever Allergies: Coded Allergies: INFLIXIMAB (Verified Allergy, Unknown, 08/15/19) Objective Vital Signs Last 24 Hour Vital Signs Date Time Temp Pulse Resp B/P (MAP) Pulse Ox O2 Delivery O2 Flow Rate FiO2 08/23/19 09:06 94 148/81 08/23/19 08:00 98.5 94 20 148/81 (103) 97 08/23/19 08:00 95 08/23/19 04:00 98.0 82 20 116/61 (79) 99 08/23/19 04:00 89 08/23/19 04:00 Nasal Cannula 2.0 Nasal Cannula 2.0 08/23/19 00:00 97.9 74 20 122/67 (85) 99 08/23/19 00:00 74 08/23/19 00:00 Nasal Cannula 2.0 Nasal Cannula 2.0 08/22/19 20:37 108 131/58 08/22/19 20:00 103 08/22/19 20:00 Nasal Cannula 2.0 Nasal Cannula 2.0 08/22/19 20:00 98.1 109 21 131/78 (95) 99 08/22/19 16:00 79 08/22/19 16:00 97.6 80 21 118/66 (83) 100 08/22/19 16:00 Nasal Cannula 2.0 Nasal Cannula 2.0 08/22/19 12:00 98.2 81 20 97/54 (68) 100 08/22/19 12:00 Nasal Cannula 2.0 Nasal Cannula 2.0 08/22/19 11:43 72 Height (Feet): 5 Height (Inches): 3.00 Weight (Pounds): 146 General Appearance: no acute distress HEENT: mucous membranes moist Respiratory/Chest: lungs clear Cardiovascular: normal rate Abdomen: soft, non tender Extremities: no edema Neurologic/Psychiatric: alert, responsive Laboratory Tests Test 08/23/19 05:30 White Blood Count 6.6 K/UL (4.8-10.8) Red Blood Count 3.45 M/UL (4.20-5.40) L Hemoglobin 9.4 G/DL (12.0-16.0) L Hematocrit 31.0 % (37.0-47.0) L Mean Corpuscular Volume 90 FL (80-99) Mean Corpuscular Hemoglobin 27.3 PG (27.0-31.0) Mean Corpuscular Hemoglobin Concent 30.4 G/DL (32.0-36.0) L Red Cell Distribution Width 17.5 % (11.6-14.8) H Platelet Count 296 K/UL (150-450) Mean Platelet Volume 5.6 FL (6.5-10.1) L Neutrophils (%) (Auto) 66.9 % (45.0-75.0) Lymphocytes (%) (Auto) 21.8 % (20.0-45.0) Monocytes (%) (Auto) 9.0 % (1.0-10.0) Eosinophils (%) (Auto) 1.6 % (0.0-3.0) Basophils (%) (Auto) 0.7 % (0.0-2.0) Sodium Level 146 MMOL/L (136-145) H Potassium Level 4.0 MMOL/L (3.5-5.1) Chloride Level 111 MMOL/L (98-107) H Carbon Dioxide Level 33 MMOL/L (21-32) H Anion Gap 2 mmol/L (5-15) L Blood Urea Nitrogen 10 mg/dL (7-18) Creatinine 0.8 MG/DL (0.55-1.30) Estimat Glomerular Filtration Rate mL/min (>60) Glucose Level 105 MG/DL (74-106) Calcium Level 10.1 MG/DL (8.5-10.1) Magnesium Level 1.7 MG/DL (1.8-2.4) L Total Bilirubin 0.3 MG/DL (0.2-1.0) Aspartate Amino Transf (AST/SGOT) 21 U/L (15-37) Alanine Aminotransferase (ALT/SGPT) 17 U/L (12-78) Alkaline Phosphatase 85 U/L (46-116) Pro-B-Type Natriuretic Peptide 284 pg/mL (0-125) H Total Protein 5.7 G/DL (6.4-8.2) L Albumin 2.1 G/DL (3.4-5.0) L Globulin 3.6 g/dL Albumin/Globulin Ratio 0.6 (1.0-2.7) L Current Medications Medications (Trade) Dose Ordered Sig/Ronaldo Route PRN Reason Start Time Stop Time Status Last Admin Dose Admin Acetaminophen (Tylenol) 650 mg Q6H PRN ORAL Mild Pain/Temp > 100.5 08/22/19 10:30 09/16/19 10:29 08/22/19 19:49 Ascorbic Acid (Vitamin C) 500 mg DAILY ORAL 08/23/19 09:00 09/14/19 08:59 08/23/19 09:05 Aspirin (Ecotrin) 81 mg DAILY ORAL 08/23/19 09:00 09/14/19 08:59 08/23/19 09:05 Atorvastatin Calcium (Lipitor) 10 mg BEDTIME ORAL 08/22/19 21:00 09/14/19 20:59 08/22/19 20:37 Dextrose (Dextrose 50%) 25 ml Q30M PRN IV Hypoglycemia 08/22/19 10:15 09/14/19 06:44 Dextrose (Dextrose 50%) 50 ml Q30M PRN IV Hypoglycemia 08/22/19 10:15 09/14/19 06:44 Guaifenesin/ Dextromethorphan (Robitussin DM Syrup) 15 ml Q4H PRN ORAL For Cough 08/22/19 21:30 09/21/19 21:29 08/23/19 03:30 Heparin Sodium (Porcine) (Heparin 5000 units/ml) 5,000 units EVERY 12 HOURS SUBQ 08/22/19 21:00 09/14/19 08:59 Insulin Aspart (NovoLOG) BEFORE MEALS AND HS SUBQ 08/22/19 11:30 09/14/19 11:29 Lactobacillus Acidophilus (Culturelle) 1 tab THREE TIMES A DAY ORAL 08/22/19 13:00 09/14/19 08:59 08/23/19 09:06 Lorazepam (Ativan 2mg/ml 1ml) 1 mg Q4H PRN IM For Anxiety 08/22/19 13:15 08/25/19 17:14 Meropenem 1 gm/ Sodium Chloride 55 ml @ 110 mls/hr Q8H IVPB 08/22/19 12:00 08/26/19 11:59 08/23/19 03:24 Metoprolol Tartrate (Lopressor) 50 mg Q12HR ORAL 08/22/19 21:00 09/20/19 17:29 08/23/19 09:06 Multivitamins (Multivitamins) 1 tab DAILY ORAL 08/23/19 09:00 09/14/19 08:59 08/23/19 09:06 Nitroglycerin (Ntg) 0.4 mg Q5M PRN SL CHEST PAIN 08/22/19 10:05 09/14/19 06:44 Pantoprazole (Protonix) 40 mg DAILY IVP 08/23/19 09:00 09/14/19 08:59 08/23/19 09:05 Quetiapine Fumarate (SEROquel) 25 mg TID ORAL 08/22/19 13:00 09/17/19 17:59 08/23/19 09:05 Scotty Dumont MD Aug 23, 2019 10:03
--- NOTE | 2019-08-23 11:32 | Diagnostic Imaging Report ---
Indication: Cough Technique: One view of the chest Comparison: 08/17/2019 Findings: Bilateral basilar atelectatic changes, left greater than right, and likely left greater than right pleural effusions cyst, unchanged. The upper lungs are clear. Impression: Unchanged, over 6 days, findings as above.
[2019-08-23 12:00] VITALS: BP 100/58
--- NOTE | 2019-08-23 14:50 | General Progress Note ---
Assessment/Plan Problem List: (1) Diabetes ICD Codes: E11.9 - Type 2 diabetes mellitus without complications SNOMED: 89296407 (2) Hypertension ICD Codes: I10 - Essential (primary) hypertension SNOMED: 22982066 (3) Anemia ICD Codes: D64.9 - Anemia, unspecified SNOMED: 774405382 (4) UTI (urinary tract infection) ICD Codes: N39.0 - Urinary tract infection, site not specified SNOMED: 57195026 (5) Tachycardia ICD Codes: R00.0 - Tachycardia, unspecified SNOMED: 9807650 (6) Pneumonia ICD Codes: J18.9 - Pneumonia, unspecified organism SNOMED: 125022642 (7) Bacteremia ICD Codes: R78.81 - Bacteremia SNOMED: 5472095 Status: stable Assessment/Plan: monitor hr/tele b-blockade compliance stressed iv abx per id follow up cultures dvt/stress ulcer prophylaxis psych rx MAXI Subjective ROS Limited/Unobtainable: No Constitutional: Reports: malaise, weakness HEENT: Reports: no symptoms Cardiovascular: Reports: no symptoms Respiratory: Reports: no symptoms Gastrointestinal/Abdominal: Reports: no symptoms Genitourinary: Reports: no symptoms Neurologic/Psychiatric: Reports: anxiety Endocrine: Reports: no symptoms Hematologic/Lymphatic: Reports: no symptoms Allergies: Coded Allergies: INFLIXIMAB (Verified Allergy, Unknown, 08/15/19) All Systems: reviewed and negative except above Subjective no events. w/o complaints. no cp/sob. eating well. compliant with rx. HR controlled. Objective Last 24 Hour Vital Signs Date Time Temp Pulse Resp B/P (MAP) Pulse Ox O2 Delivery O2 Flow Rate FiO2 08/23/19 12:00 73 08/23/19 12:00 98.3 72 20 100/58 (72) 94 08/23/19 12:00 Nasal Cannula 2.0 Nasal Cannula 2.0 08/23/19 09:06 94 148/81 08/23/19 08:00 98.5 94 20 148/81 (103) 97 08/23/19 08:00 Nasal Cannula 2.0 Nasal Cannula 2.0 08/23/19 08:00 95 08/23/19 04:00 98.0 82 20 116/61 (79) 99 08/23/19 04:00 89 08/23/19 04:00 Nasal Cannula 2.0 Nasal Cannula 2.0 08/23/19 00:00 97.9 74 20 122/67 (85) 99 08/23/19 00:00 74 08/23/19 00:00 Nasal Cannula 2.0 Nasal Cannula 2.0 08/22/19 20:37 108 131/58 08/22/19 20:00 103 08/22/19 20:00 Nasal Cannula 2.0 Nasal Cannula 2.0 08/22/19 20:00 98.1 109 21 131/78 (95) 99 08/22/19 16:00 79 08/22/19 16:00 97.6 80 21 118/66 (83) 100 08/22/19 16:00 Nasal Cannula 2.0 Nasal Cannula 2.0 Intake and Output 08/22/19 08/23/19 19:00 07:00 Intake Total 705 ml 350 ml Output Total 890 ml 1350 ml Balance -185 ml -1000 ml Intake Oral 650 ml 240 ml IV Total 55 ml 110 ml Output Urine Total 890 ml 1350 ml Laboratory Tests 08/23/19 05:30: White Blood Count 6.6, Red Blood Count 3.45L, Hemoglobin 9.4L, Hematocrit 31.0L , Mean Corpuscular Volume 90, Mean Corpuscular Hemoglobin 27.3, Mean Corpuscular Hemoglobin Concent 30.4L, Red Cell Distribution Width 17.5H, Platelet Count 296, Mean Platelet Volume 5.6L, Neutrophils (%) (Auto) 66.9, Lymphocytes (%) (Auto) 21.8, Monocytes (%) (Auto) 9.0, Eosinophils (%) (Auto) 1.6, Basophils (%) (Auto) 0.7, Sodium Level 146H, Potassium Level 4.0, Chloride Level 111H, Carbon Dioxide Level 33H, Anion Gap 2L, Blood Urea Nitrogen 10, Creatinine 0.8, Estimat Glomerular Filtration Rate , Glucose Level 105, Calcium Level 10.1, Magnesium Level 1.7L, Total Bilirubin 0.3, Aspartate Amino Transf ( AST/SGOT) 21, Alanine Aminotransferase (ALT/SGPT) 17, Alkaline Phosphatase 85, Pro-B-Type Natriuretic Peptide 284H, Total Protein 5.7L, Albumin 2.1L, Globulin 3.6, Albumin/Globulin Ratio 0.6L 08/23/19 10:30: Prothrombin Time 10.5, Prothromb Time International Ratio 1.0, Activated Partial Thromboplast Time 24 Height (Feet): 5 Height (Inches): 3.00 Weight (Pounds): 146 Objective General Appearance: WD/WN, alert Neck: supple Cardiovascular: regular rhythm, tachycardia Respiratory/Chest: chest wall non-tender, lungs clear, normal breath sounds, no respiratory distress Abdomen: normal bowel sounds, non tender, soft, no organomegaly Edema: 1+ Leg (L), 1+ Leg (R) Neurologic: nurse esthetician II-XII grossly normal, no motor/sensory deficits, alert, oriented x 3, responsive Carmine Krishna MD Aug 23, 2019 14:50
[2019-08-23 16:00] VITALS: BP 102/58
--- NOTE | 2019-08-23 17:06 | Diagnostic Imaging Report ---
Indication: Shortness of breath, pleural effusions suspected on recent chest radiograph Technique: Grayscale images of the bilateral hemithoraces Comparison: Chest radiograph of earlier the same day Findings: No pleural fluid is demonstrated in either hemithorax Impression: Negative for pleural fluid; no thoracentesis performed therefore. Costophrenic angle blunting demonstrated on prior chest radiograph is presumably due to atelectatic changes
[2019-08-23 20:00] VITALS: BP 111/62
[2019-08-24] VITALS (7 sets, daily range): BP systolic 97–130; BP diastolic 40–79
[2019-08-24] MEDS ORDERED: Nitroglycerin Subl 0.4mg tab SL PRN (02:15)
[2019-08-24] MEDS ORDERED: Guaifenesin/DM 10ml syrup ORAL PRN (02:30)
[2019-08-24] MEDS ORDERED: LORazepam Inj 2mg/ml 1ml IM PRN (02:30)
--- NOTE | 2019-08-24 03:30 | Progress Note ---
DATE: 08/23/2019 SUBJECTIVE: The patient is in step-down unit now. Continues to be having episodes of anxiety, poor memory, unable to retain information. Alert and more engaged. MENTAL STATUS EXAMINATION: Alert and oriented times self, place. Poor insight into the situation she is in. Mood is neutral to anxious. Affect is flat. Thought process, there is a paucity of thought content. Thought content, no suicidal or homicidal ideations. ASSESSMENT: 1. Acute encephalopathy, improving. 2. Cognitive impairment. PLAN: We will continue current medications. Provide the patient with reality orientation and supportive therapy. Tal Kwong M.D. DR: NBA JOB#: [id number] CC:
[2019-08-24] MEDS: Meropenem 1 GM in NS 55 ML IVPB SCH ×3 (04:08→21:42)
--- NOTE | 2019-08-24 05:00 | Progress Note ---
DATE: 08/23/2019 CARDIOLOGY PROGRESS NOTE SUBJECTIVE: The patient has no new complaints. Tolerating diet. Compliant with medication. Blood pressure is somewhat labile, but overall better controlled. OBJECTIVE: VITAL SIGNS: Blood pressure 100/58 to 148/81. Monitored rhythm is sinus with rare atrial arrhythmias LUNGS: Good breath sounds. Few rhonchi. HEART: Regular rhythm and rate. Normal S1, S2. A 1/6 systolic murmur at base. ABDOMEN: Soft and nontender. LABORATORY DATA: White count 6.6 and hemoglobin 9.4. Sodium 146, potassium 4, bicarb 33, BUN 10, and creatinine 0.8. Albumin 2.1. IMPRESSION: 1. Pneumonia. 2. Bacteremia. 3. Sepsis. 4. Secondary sinus tachycardia. 5. Paroxysmal supraventricular tachyarrhythmias. 6. Hypertensive heart disease. 7. Type 2 diabetes mellitus. 8. Dehydration. 9. Hypernatremia. PLAN: 1. Antimicrobials. 2. Respiratory hygiene. 3. Continue beta-sandy. 4. Free water replacement. 5. DVT and stress ulcer prophylaxis. Smooth Wilson M.D. DR: DAYNA JOB#: [id number] CC:
[2019-08-24] MEDS: NovoLOG Insulin Flexpen SUBQ SCH ×4 (05:44→21:00)
[2019-08-24] MEDS ORDERED: Pantoprazole Inj IVP SCH (09:00)
[2019-08-24] MEDS ORDERED: Ascorbic Acid 500mg tab ORAL SCH (09:00)
[2019-08-24] MEDS ORDERED: Aspirin EC 81mg tab ORAL SCH (09:00)
[2019-08-24] MEDS: Metoprolol Tartrate 50mg tab ORAL SCH ×2 (09:04→21:30)
[2019-08-24] MEDS: Lactobacillus-GG tablet ORAL SCH ×3 (09:04→17:51)
--- NOTE | 2019-08-24 09:05 | General Progress Note ---
Assessment/Plan Problem List: (1) Diabetes ICD Codes: E11.9 - Type 2 diabetes mellitus without complications SNOMED: 32364606 (2) Hypertension ICD Codes: I10 - Essential (primary) hypertension SNOMED: 35459096 (3) Anemia ICD Codes: D64.9 - Anemia, unspecified SNOMED: 279453173 (4) UTI (urinary tract infection) ICD Codes: N39.0 - Urinary tract infection, site not specified SNOMED: 37048823 (5) Tachycardia ICD Codes: R00.0 - Tachycardia, unspecified SNOMED: 1635760 (6) Pneumonia ICD Codes: J18.9 - Pneumonia, unspecified organism SNOMED: 602985437 (7) Bacteremia ICD Codes: R78.81 - Bacteremia SNOMED: 9430042 Status: stable Assessment/Plan: monitor hr/tele b-blockade compliance stressed iv abx per id follow up cultures dvt/stress ulcer prophylaxis psych rx MAXI Subjective ROS Limited/Unobtainable: No Constitutional: Reports: malaise, weakness HEENT: Reports: no symptoms Cardiovascular: Reports: no symptoms Respiratory: Reports: no symptoms Gastrointestinal/Abdominal: Reports: no symptoms Genitourinary: Reports: no symptoms Neurologic/Psychiatric: Reports: anxiety Endocrine: Reports: no symptoms Hematologic/Lymphatic: Reports: anemia Allergies: Coded Allergies: INFLIXIMAB (Verified Allergy, Unknown, 08/15/19) All Systems: reviewed and negative except above Subjective no events. no new complaints. no cp/sob. eating well. compliant with rx. HR controlled. Objective Last 24 Hour Vital Signs Date Time Temp Pulse Resp B/P (MAP) Pulse Ox O2 Delivery O2 Flow Rate FiO2 08/24/19 08:44 Nasal Cannula 2.0 Nasal Cannula 2.0 08/24/19 07:59 98.2 78 18 130/71 (90) 99 08/24/19 04:00 69 08/24/19 04:00 98.2 73 18 97/40 (59) 96 08/24/19 02:52 98.6 87 20 119/62 (81) 99 08/24/19 00:00 Nasal Cannula 2.0 Nasal Cannula 2.0 08/24/19 00:00 88 08/24/19 00:00 98.5 83 20 117/67 (84) 99 08/23/19 21:15 91 120/62 08/23/19 20:00 86 10/14/19 20:00 Nasal Cannula 2.0 Nasal Cannula 2.0 08/23/19 20:00 98.5 91 20 111/62 (78) 99 08/23/19 16:00 92 08/23/19 16:00 98.7 93 20 102/58 (73) 95 08/23/19 16:00 Nasal Cannula 2.0 Nasal Cannula 2.0 08/23/19 12:00 73 08/23/19 12:00 98.3 72 20 100/58 (72) 94 08/23/19 12:00 Nasal Cannula 2.0 Nasal Cannula 2.0 08/23/19 09:06 94 148/81 Intake and Output 08/23/19 08/24/19 19:00 07:00 Intake Total 535 ml 295 ml Output Total 1100 ml 800 ml Balance -565 ml -505 ml Intake Oral 480 ml 240 ml IV Total 55 ml 55 ml Output Urine Total 1100 ml 800 ml # Voids 2 Laboratory Tests 08/23/19 10:30: Prothrombin Time 10.5, Prothromb Time International Ratio 1.0, Activated Partial Thromboplast Time 24 Height (Feet): 5 Height (Inches): 3.00 Weight (Pounds): 147 Objective General Appearance: WD/WN, alert Neck: supple Cardiovascular: regular rhythm, tachycardia Respiratory/Chest: chest wall non-tender, lungs clear, normal breath sounds, no respiratory distress Abdomen: normal bowel sounds, non tender, soft, no organomegaly Edema: 1+ Leg (L), 1+ Leg (R) Neurologic: business support II-XII grossly normal, no motor/sensory deficits, alert, oriented x 3, responsive Carmine Krishna MD Aug 24, 2019 09:05
[2019-08-24] MEDS: Heparin 5000 units/ml inj SUBQ SCH ×2 (09:06→21:00)
--- NOTE | 2019-08-24 10:43 | Infectious Diseases Prog Note ---
Assessment/Plan Assessment/Plan antibiotics : meropenem 08.17.19- A 1. e.coli sepsis 2. e.coli esbl UTI 3. pneumonia 4. leucocytosis resolved 5. diabetes mellitus 6. hypertension P 1. continue meropenem 2 more days 2. will follow up cultures Subjective ROS Limited/Unobtainable: Yes Allergies: Coded Allergies: INFLIXIMAB (Verified Allergy, Unknown, 08/15/19) Objective Vital Signs Last 24 Hour Vital Signs Date Time Temp Pulse Resp B/P (MAP) Pulse Ox O2 Delivery O2 Flow Rate FiO2 08/24/19 09:04 78 130/71 08/24/19 08:44 Nasal Cannula 2.0 Nasal Cannula 2.0 08/24/19 08:00 80 08/24/19 07:59 98.2 78 18 130/71 (90) 99 08/24/19 04:00 69 08/24/19 04:00 98.2 73 18 97/40 (59) 96 08/24/19 02:52 98.6 87 20 119/62 (81) 99 08/24/19 00:00 Nasal Cannula 2.0 Nasal Cannula 2.0 08/24/19 00:00 88 08/24/19 00:00 98.5 83 20 117/67 (84) 99 08/23/19 21:15 91 120/62 08/23/19 20:00 86 08/23/19 20:00 Nasal Cannula 2.0 Nasal Cannula 2.0 08/23/19 20:00 98.5 91 20 111/62 (78) 99 08/23/19 16:00 92 08/23/19 16:00 98.7 93 20 102/58 (73) 95 08/23/19 16:00 Nasal Cannula 2.0 Nasal Cannula 2.0 08/23/19 12:00 73 08/23/19 12:00 98.3 72 20 100/58 (72) 94 08/23/19 12:00 Nasal Cannula 2.0 Nasal Cannula 2.0 Height (Feet): 5 Height (Inches): 3.00 Weight (Pounds): 147 Respiratory/Chest: lungs clear Cardiovascular: normal rate, regular rhythm, no gallop/murmur Abdomen: soft, non tender Extremities: no edema Current Medications Medications (Trade) Dose Ordered Sig/Ronaldo Route PRN Reason Start Time Stop Time Status Last Admin Dose Admin Acetaminophen (Tylenol) 650 mg Q6H PRN ORAL Mild Pain/Temp > 100.5 08/24/19 02:30 09/16/19 02:29 Ascorbic Acid (Vitamin C) 500 mg DAILY ORAL 08/24/19 09:00 09/14/19 08:59 08/24/19 09:04 Aspirin (Ecotrin) 81 mg DAILY ORAL 08/24/19 09:00 09/14/19 08:59 08/24/19 09:05 Atorvastatin Calcium (Lipitor) 10 mg BEDTIME ORAL 08/24/19 21:00 09/14/19 20:59 Dextrose (Dextrose 50%) 25 ml Q30M PRN IV Hypoglycemia 08/24/19 02:15 09/14/19 06:44 Dextrose (Dextrose 50%) 50 ml Q30M PRN IV Hypoglycemia 08/24/19 02:15 09/14/19 06:44 Guaifenesin/ Dextromethorphan (Robitussin DM Syrup) 15 ml Q4H PRN ORAL For Cough 08/24/19 02:30 09/21/19 02:29 Heparin Sodium (Porcine) (Heparin 5000 units/ml) 5,000 units EVERY 12 HOURS SUBQ 08/24/19 09:00 09/14/19 08:59 08/24/19 09:06 Insulin Aspart (NovoLOG) BEFORE MEALS AND HS SUBQ 08/24/19 06:30 09/14/19 11:29 Lactobacillus Acidophilus (Culturelle) 1 tab THREE TIMES A DAY ORAL 08/24/19 09:00 09/14/19 08:59 08/24/19 09:04 Lorazepam (Ativan 2mg/ml 1ml) 1 mg Q4H PRN IM For Anxiety 08/24/19 02:30 08/25/19 02:29 Meropenem 1 gm/ Sodium Chloride 55 ml @ 110 mls/hr Q8H IVPB 08/24/19 04:00 08/26/19 11:59 08/24/19 04:08 Metoprolol Tartrate (Lopressor) 50 mg Q12HR ORAL 08/24/19 09:00 09/20/19 17:29 08/24/19 09:04 Multivitamins (Multivitamins) 1 tab DAILY ORAL 08/24/19 09:00 11/5/19 08:59 08/24/19 09:04 Nitroglycerin (Ntg) 0.4 mg Q5M PRN SL CHEST PAIN 08/24/19 02:15 09/14/19 06:44 Pantoprazole (Protonix) 40 mg DAILY IVP 08/24/19 09:00 09/14/19 08:59 08/24/19 09:03 Quetiapine Fumarate (SEROquel) 25 mg TID ORAL 08/24/19 09:00 09/17/19 17:59 08/24/19 09:04 Terry Solorzano MD Aug 24, 2019 10:43
--- NOTE | 2019-08-24 15:31 | Pulmonology Progress Note ---
Assessment/Plan Assessment/Plan Impression: Pneumonia Urinary tract infection + Sepsis + blood cultures Paroxysmal atrial fibrillation Asthma/COPD Congestive Heart Failure Diabetes Hypertension Hyperlipidemia Generalized weakness Tachyarrythmia Protein calorie malnutrition acute encephalopathy Plan clearance by consultants dc to snf HHN with albuterol PRN maintain same CXR reviewed Aspiration precautions monitor for change monitor protein levels labile but improved impression, plan, and exam edited and reviewed in detail care discussed with RN Subjective Allergies: Coded Allergies: INFLIXIMAB (Verified Allergy, Unknown, 08/15/19) Subjective care noted less distress and more comfortable on oxygen- low flow cards noted and reviewed seems more stable Objective Last 24 Hour Vital Signs Date Time Temp Pulse Resp B/P (MAP) Pulse Ox O2 Delivery O2 Flow Rate FiO2 08/24/19 12:00 98.0 72 18 102/49 (66) 98 08/24/19 12:00 72 08/24/19 09:04 78 130/71 08/24/19 08:44 Nasal Cannula 2.0 Nasal Cannula 2.0 08/24/19 08:00 80 08/24/19 07:59 98.2 78 18 130/71 (90) 99 08/24/19 04:00 69 08/24/19 04:00 98.2 73 18 97/40 (59) 96 08/24/19 02:52 98.6 87 20 119/62 (81) 99 08/24/19 00:00 Nasal Cannula 2.0 Nasal Cannula 2.0 08/24/19 00:00 88 08/24/19 00:00 98.5 83 20 117/67 (84) 99 08/23/19 21:15 91 120/62 08/23/19 20:00 86 08/23/19 20:00 Nasal Cannula 2.0 Nasal Cannula 2.0 08/23/19 20:00 98.5 91 20 111/62 (78) 99 08/23/19 16:00 92 08/23/19 16:00 98.7 93 20 102/58 (73) 95 08/23/19 16:00 Nasal Cannula 2.0 Nasal Cannula 2.0 Intake and Output 08/23/19 08/24/19 19:00 07:00 Intake Total 535 ml 415 ml Output Total 1100 ml 800 ml Balance -565 ml -385 ml Intake Oral 480 ml 360 ml IV Total 55 ml 55 ml Output Urine Total 1100 ml 800 ml # Voids 2 Objective WDWN on oxygen NAD reduced breath sounds bilaterally without rhonchi or wheeze [id number] without MRG NABS nontender no HSM no CC some edema- pitting but improved nonfocal weak overall reviewed and edited Current Medications Medications (Trade) Dose Ordered Sig/Ronaldo Route PRN Reason Start Time Stop Time Status Last Admin Dose Admin Acetaminophen (Tylenol) 650 mg Q6H PRN ORAL Mild Pain/Temp > 100.5 08/24/19 02:30 09/16/19 02:29 Ascorbic Acid (Vitamin C) 500 mg DAILY ORAL 08/24/19 09:00 09/14/19 08:59 08/24/19 09:04 Aspirin (Ecotrin) 81 mg DAILY ORAL 08/24/19 09:00 09/14/19 08:59 08/24/19 09:05 Atorvastatin Calcium (Lipitor) 10 mg BEDTIME ORAL 08/24/19 21:00 09/14/19 20:59 Dextrose (Dextrose 50%) 25 ml Q30M PRN IV Hypoglycemia 08/24/19 02:15 09/14/19 06:44 Dextrose (Dextrose 50%) 50 ml Q30M PRN IV Hypoglycemia 08/24/19 02:15 09/14/19 06:44 Guaifenesin/ Dextromethorphan (Robitussin DM Syrup) 15 ml Q4H PRN ORAL For Cough 08/24/19 02:30 09/21/19 02:29 Heparin Sodium (Porcine) (Heparin 5000 units/ml) 5,000 units EVERY 12 HOURS SUBQ 08/24/19 09:00 09/14/19 08:59 08/24/19 09:06 Insulin Aspart (NovoLOG) BEFORE MEALS AND HS SUBQ 08/24/19 06:30 09/14/19 11:29 Lactobacillus Acidophilus (Culturelle) 1 tab THREE TIMES A DAY ORAL 08/24/19 09:00 09/14/19 08:59 08/24/19 12:26 Lorazepam (Ativan 2mg/ml 1ml) 1 mg Q4H PRN IM For Anxiety 08/24/19 02:30 08/25/19 02:29 Meropenem 1 gm/ Sodium Chloride 55 ml @ 110 mls/hr Q8H IVPB 08/24/19 04:00 08/26/19 11:59 08/24/19 12:25 Metoprolol Tartrate (Lopressor) 50 mg Q12HR ORAL 08/24/19 09:00 09/20/19 17:29 08/24/19 09:04 Multivitamins (Multivitamins) 1 tab DAILY ORAL 08/24/19 09:00 09/14/19 08:59 08/24/19 09:04 Nitroglycerin (Ntg) 0.4 mg Q5M PRN SL CHEST PAIN 08/24/19 02:15 09/14/19 06:44 Pantoprazole (Protonix) 40 mg DAILY IVP 08/24/19 09:00 09/14/19 08:59 08/24/19 09:03 Quetiapine Fumarate (SEROquel) 25 mg TID ORAL 08/24/19 09:00 09/17/19 17:59 08/24/19 12:26 Piero Lu MD Aug 24, 2019 15:31
[2019-08-24] MEDS ORDERED: MEROPENEM-1 GM/50 ML IV (17:22)
[2019-08-24] MEDS ORDERED: MEROPENEM1 GM IV (17:22)
[2019-08-24] MEDS ORDERED: LORAZEPAM1 MG IM (20:20)
[2019-08-24] MEDS ORDERED: PROTONIX40 M1 IVP (20:28)
[2019-08-24] MEDS ORDERED: SEROQUEL25 MG ORAL (20:29)
[2019-08-24] MEDS ORDERED: NS 275ml ONE (23:54)
--- NOTE | 2019-08-25 00:02 | Progress Note ---
DATE: 08/24/2019 CARDIOLOGY PROGRESS NOTE SUBJECTIVE: No distress. No chest pain. No congestion. Tolerating medications. Monitored rhythm sinus. No recurring tachyarrhythmias. OBJECTIVE: VITAL SIGNS: Blood pressure 97/40 to 130/71, heart rate 69-80, respiratory rate 18-20, and afebrile. On 2 L nasal cannula, saturations are 98% to 99%. LUNGS: Coarse breath sounds. No wheezes. CARDIAC: Regular rhythm and rate. Normal S1 and S2 with no new murmur. ABDOMEN: Soft. EXTREMITIES: There is no edema. LABORATORY DATA: Labs from August 23 were reviewed. IMPRESSION: 1. Paroxysmal supraventricular tachyarrhythmia. 2. Secondary sinus tachycardia, resolved. 3. Healthcare-acquired pneumonia. 4. Sepsis 5. Dehydration. 6. Hypernatremia. 7. Contraction alkalosis. 8. Severe protein-calorie malnutrition. 9. Chronic diastolic congestive heart failure. 10. Cerebrovascular disease with dementia. 11. Hypomagnesemia. PLAN: 1. Free water replacement. 2. Respiratory hygiene. 3. Continue beta-sandy. 4. Magnesium replacement. Smooth Wilson M.D. DR: Alla JOB#: [id number] CC:
--- NOTE | 2019-08-25 00:30 | Progress Note ---
DATE: 08/24/2019 SUBJECTIVE: The patient is calmer, awake, able to answers the questions, less confused, did not know the date. MENTAL STATUS EXAMINATION: Mood is neutral. Affect is flat. Thought process is concrete. Thought content, no suicidal or homicidal ideation. Cognition is impaired. ASSESSMENT: Acute encephalopathy, improving. PLAN: We will continue current medications. Tal Kwong M.D. DR: LISA JOB#: [id number] CC:
--- NOTE | 2019-08-26 08:17 | Discharge Summary ---
Discharge Summary Discharge Summary _ DATE OF ADMISSION: 08/15/2019 DATE OF DISCHARGE: 08/24/2019 DISCHARGED BY: Dr. Lu REASON FOR ADMISSION: 79 years old female with past medical history of COPD, asthma, atrial fibrillation, CHF, diabetes mellitus, hypertension, hyperlipidemia, [facility], was sent for generalized weakness and after initial evaluation was diagnosed with urinary tract infection, possible pneumonia , sepsis and altered mental status. Upon evaluation patient was febrile, tachycardic, tachypneic. Laboratory work-up revealed lactic acid 2.1. No leukocytosis, hemoglobin 9.6 , hematocrit 30.6. Platelets 158. Stable electrolytes and renal parameters. Glucose 154. Stable LFT. Troponin -0.018. pro BNP 1179. EKG revealed sinus tachycardia , no acute ischemic changes. Urinalysis revealed +3 protein , +1 leukocyte esterase , pyuria , moderate bacteria. Chest x-ray demonstrated increased density at the lung bases, suggestive of small bilateral pleural effusion versus pleural thickening with adjacent atelectasis versus infiltrate, left more than right. CT of the head revealed age-related changes, but was negative for acute intracranial bleeding or mass-effect. Mastoid and left maxillary sinus disease noted. In emergency department patient received IV fluids, pancultured, started on empiric antibiotic and admitted to telemetry floor for further management CONSULTANTS: organic chemistry professor internal medicine Dr. Krishna ID specialist Dr. Solorzano psychiatrist [place] [employer] [facility] COURSE: Patient admitted to telemetry floor. Patient started on empiric antibiotics and gentle IV hydration. Supplemental oxygen titrated to keep pulse oximetry above 92%. Pulmonary toilet with bronchodilator via handheld nebulizing therapy provided. Antibiotics provided as per infectious disease specialist recommendation. Blood culture revealed E. coli ESBL. Urine culture revealed E. coli ESBL. Antibiotic regimen was optimized as per ID specialist recommendation. Patient was followed-up with chest x-ra. Ultrasound of the chest was done to evaluate for possible thoracentesis. No evidence of pleural effusion, on chest ultrasound. Venous duplex bilateral lower extremity revealed no evidence of acute DVT. Echocardiogram revealed preserved ejection fraction to the extent visualized. No evidence of left ventricular hypertrophy. No evidence of wall motion abnormality. Right ventricular systolic pressure of 18. X Ray Tech followed. Patient noted to have paroxysmal SVT on telemetry. Repeated troponin was negative. Low magnesium noted , and magnesium was replaced. Antiplatelet therapy with aspirin and beta blockage continued. DVT prophylaxis provided. Statin continued. Blood pressure was managed with beta sandy. No need for diuresis at this time. Pro BNP down to 284 upon discharge. Heart rate stabilized. Bedside swallow evaluation revealed at least mild dysphagia. Calorie count instituted. Skilled dysphagia management was provided. Diet texture provided as per speech therapist recommendation with consistent supervision and assistance with meals. Strict aspiration/reflux precaution maintained. Speech therapist recommended video swallow evaluation, which can be done as outpatient. GI prophylaxis provided. Protein supplements implemented in plan of care as per registered respiratory therapist recommendation. Patient noted to have hypernatremia , likely due to dehydration ; free water provided via G-tube. Blood sugar was managed with sliding scale of insulin. Psychiatrist seen and evaluated patient for for altered mental status on admission and diagnosed patient with acute encephalopathy. Psychiatric medication regimen was optimized. As patient was clinically improving, mental status was improving to baseline as well. Supportive care provided. Bowel regimen instituted. Follow-up chest x-ray upon discharge revealed bilateral basilar atelectatic changes , left greater than right; upper lungs were clear. Leukocytosis resolved , fever resolved. Patient will need to continue meropenem for 2 additional days at the facility as per infectious disease specialist recommendation. Patient clinically stabilized and was ready [facility] to [facility] of care. FINAL DIAGNOSES: Sepsis with E. coli ESBL bacteremia due to UTI E. coli ESBL UTI [facility] acquired pneumonia Acute metabolic encephalopathy Paroxysmal supraventricular tachyarrhythmia Hypomagnesemia Chronic diastolic congestive chest failure Hypomagnesemia Severe protein calorie malnutrition Dehydration Hypernatremia Asthma/COPD Diabetes mellitus Hypertensive heart disease Hyperlipidemia Cerebrovascular disease with dementia Dementia with behavioral disturbances DISCHARGE MEDICATIONS: See Medication Reconciliation list. DISCHARGE INSTRUCTIONS: [facility]. Follow up with medical doctor at the facility. I have been assigned to dictate discharge summary for this account. I was not involved in the patient's management. Sayra Schmidt NP Aug 26, 2019 08:17
== END 2019-08-24 23:55 | DRG 720 ==
LOC: EDBD 00:45 → EMR 01:10 → 2E 02:55 → EDBEDREQ 03:26 → ICU 08-17 04:36 → 2W 08-22 10:01 → 2E 08-24 02:06
DX: A41.51 Sepsis due to Escherichia coli [E. coli] (principal); J18.9 Pneumonia, unspecified organism; N39.0 Urinary tract infection, site not specified; I48.0 Paroxysmal atrial fibrillation; J44.9 Chronic obstructive pulmonary disease, unspecified; I11.0 Hypertensive heart disease with heart failure; G93.41 Metabolic encephalopathy; I50.32 Chronic diastolic (congestive) heart failure; Y95 Nosocomial condition; E11.9 Type 2 diabetes mellitus without complications; E78.5 Hyperlipidemia, unspecified; I47.1 Supraventricular tachycardia; E87.6 Hypokalemia; F03.91 Unspecified dementia, unspecified severity, with behavioral disturbance; D64.9 Anemia, unspecified; E87.0 Hyperosmolality and hypernatremia; E86.0 Dehydration; E87.3 Alkalosis; E43 Unspecified severe protein-calorie malnutrition; Z68.26 Body mass index [BMI] 26.0-26.9, adult; E83.42 Hypomagnesemia
CPT/HCPCS: 36415; 36600; 70450; 71045; 76604; 80048; 80053; 80162; 81003; 82550; 82553; 82962; 83036; 83605; 83735; 83880; 84100; 84443; 84484; 85007; 85025; 85610; 85730; 87040; 87081; 87086; 87181; 93005; 93306; 93970; 94664; 96365; 96366; 96367; 96368; 99291; J1815; J3490; J7030; J8499

== ENCOUNTER 2019-08-28 12:23 | Inpatient (IN) | payer MEDICARE, OTHER ==
[~2019-08-28] VITALS: Ht 162.6 cm; Wt 64.0 kg
[~2019-08-28 12:23] MED LIST: ACETAMINOPHEN325 M1 ORAL; ACIDOPHILUS1 EAC6 PO; ALBUTEROL2.5 MG/3 M INH; ASPIRIN EC81 MG ORAL; ATORVASTATIN CA10 MG ORAL; CARDIZEM30 M1 PO; DIGOXIN125 MCG ORAL; HEPARIN SO5000 UNIT2 SUBQ; IPRATROPIU0.2 MG/1 M HHN; LOMOTIL TABLET1 EACH ORAL; LORAZEPAM1 MG IM; MEROPENEM-1 GM/50 ML IV; MEROPENEM1 GM IV; METOPROLOL TART25 MG ORAL; NITROSTAT0.4 M1 SL; NOVOLIN R100 UNIT/1 SUBQ; POTASSIUM CHLO20 ME1 ORAL; POTASSIUM40 MEQ/11 PO; PROTONIX40 M1 IVP; ROBITUSSIN COU237 M2 PO; SEROQUEL25 MG ORAL; THERA-M TABLET1 EACH PO; VITAMIN C500 M1 ORAL
--- NOTE | 2019-08-28 12:35 | NUR ---
ED Nurse Note: pt presents to ED s/p fall at 0950 with right sided headache and 8 cm skin tear of right forearm. pt states that she slipped and fell, she denies LOC and the fall was not witnessed. pt reports R MCGUIRE and right arm and elbow pain. pt is in NAD at this time, Hungarian is her primary language
[2019-08-28 12:45] VITALS: BP 116/47
[2019-08-28 12:52] VITALS: BP 116/47
--- NOTE | 2019-08-28 13:52 | NUR ---
ED Nurse Note: pt is being transported to CT. she is in NAD at this time and stable condition
--- NOTE | 2019-08-28 14:06 | Emergency Room Report ---
History of Present Illness General Chief Complaint: Multiple Trauma/Fall Source: Medical Record (Marco Huang DO) Present Illness HPI Patient is sent in with complaints of fall Upon initial discussion however patient appears significantly confused and encephalopathic she does have Steri-Strips in place in the right forearm from the recent trauma The trauma itself is unclear it was reported that the patient was leaning forward when she fell however the patient cannot confirm this description Unknown regarding recent fevers patient appears to have been in the hospital recently for multiple days With UTI (Marco Huang DO) Allergies: Coded Allergies: INFLIXIMAB (Verified Allergy, Unknown, 08/15/19) Patient History Limited by: medical condition Past Medical History: see triage record Last Menstrual Period: n/a Reviewed Nursing Documentation: PMH: Agreed; PSxH: Agreed (Marco Huang DO) Nursing Documentation-PMH Hx Cardiac Problems: Yes - paroxysmal afib Hx Hypertension: Yes Hx Asthma: Yes Hx COPD: Yes Hx Diabetes: Yes Hx Gastrointestinal Problems: Yes (Marco Huang DO) Review of Systems All Other Systems: limited - Other than the ones mentioned in the history of present illness all others are reviewed however they do stay limited due to the patient's mental status (Marco Huang DO) Physical Exam Vital Signs Date Time Temp Pulse Resp B/P (MAP) Pulse Ox O2 Delivery O2 Flow Rate FiO2 08/28/19 12:39 97.9 68 18 108/62 (77) 98 Room Air Sp02 EP Interpretation: reviewed, normal General Appearance: no apparent distress - Appears fatigued Head: normocephalic, atraumatic Eyes: bilateral eye PERRL ENT: dry mucus membranes Neck: supple Respiratory: lungs clear, no respiratory distress, no retraction Cardiovascular #1: regular rate, rhythm Gastrointestinal: non tender, soft Musculoskeletal: other - Patient is able to move both upper extremities however , seems to fall asleep during examining and discussion Neurologic: responsive - When physically coached Psychiatric: depressed affect Skin: no rash (Marco Huang DO) Medical Decision Making Diagnostic Impression: Primary Impression: Multiple injuries due to trauma Additional Impressions: Encephalopathy Hypokalemia Forearm injury Qualified Codes: S59.911A - Unspecified injury of right forearm, initial encounter ER Course Hospital Course 79 yo F presents with agiation/confusion s/p fall Initially seen and evaluated by Dr Huang; please see his note for full history and physical Clinical course Labs reviewed- K 3.0, no leukocytosis, hemoglobin/hematocrit stable, UA negative CT brain shows no acute pathology Forearm xray shows ? lucency in radiocarpal joint Placed in Velcro splint. Patient became acutely agitated during ED course. Patient does have psychiatric history. Given Haldol in ED. Potassium repleted via K rider patient will be admitted to Dr Singh service i. I feel this is a highly complex case requiring extensive working including EKG/Rhythm strip, Xray/CT/US, Blood/urine lab work, repeat exams while in ED, and administration of strong opiates/narcotics for pain control, admission to hospital or close patient follow up. Diagnosis - multiple injuries due to trauma, encephalopathy, hypokalemia, forearm injury admitted to floor in serious condition Labs Test 08/28/19 14:50 08/28/19 14:56 Urine Color Pale yellow Urine Appearance Clear Urine pH 7 (4.5-8.0) Urine Specific [place] 1.005 (1.005-1.035) Urine Protein 1+ (NEGATIVE) Urine Glucose (UA) Negative (NEGATIVE) Urine Ketones 1+ (NEGATIVE) Urine Blood 4+ (NEGATIVE) Urine Nitrite Negative (NEGATIVE) Urine Bilirubin Negative (NEGATIVE) Urine Urobilinogen Normal MG/DL (0.0-1.0) Urine Leukocyte Esterase 2+ (NEGATIVE) Urine RBC 10-15 /HPF (0 - 2) Urine WBC 5-10 /HPF (0 - 2) Urine Squamous Epithelial Cells Few /LPF (NONE/OCC) Urine Bacteria None /HPF (NONE) White Blood Count 6.9 K/UL (4.8-10.8) Red Blood Count 3.61 M/UL (4.20-5.40) Hemoglobin 9.7 G/DL (12.0-16.0) Hematocrit 32.1 % (37.0-47.0) Mean Corpuscular Volume 89 FL (80-99) Mean Corpuscular Hemoglobin 26.8 PG (27.0-31.0) Mean Corpuscular Hemoglobin Concent 30.1 G/DL (32.0-36.0) Red Cell Distribution Width 16.8 % (11.6-14.8) Platelet Count 274 K/UL (150-450) Mean Platelet Volume 5.8 FL (6.5-10.1) Neutrophils (%) (Auto) 63.9 % (45.0-75.0) Lymphocytes (%) (Auto) 22.9 % (20.0-45.0) Monocytes (%) (Auto) 10.9 % (1.0-10.0) Eosinophils (%) (Auto) 1.3 % (0.0-3.0) Basophils (%) (Auto) 1.0 % (0.0-2.0) Sodium Level 145 MMOL/L (136-145) Potassium Level 3.0 MMOL/L (3.5-5.1) Chloride Level 106 MMOL/L (98-107) Carbon Dioxide Level 33 MMOL/L (21-32) Anion Gap 6 mmol/L (5-15) Blood Urea Nitrogen 10 mg/dL (7-18) Creatinine 0.7 MG/DL (0.55-1.30) Estimat Glomerular Filtration Rate mL/min (>60) Glucose Level 96 MG/DL (74-106) Lactic Acid Level 1.10 mmol/L (0.4-2.0) Calcium Level 10.1 MG/DL (8.5-10.1) Total Bilirubin 0.5 MG/DL (0.2-1.0) Aspartate Amino Transf (AST/SGOT) 28 U/L (15-37) Alanine Aminotransferase (ALT/SGPT) 22 U/L (12-78) Alkaline Phosphatase 84 U/L (46-116) Ammonia < 10 umol/L (11-32) Total Creatine Kinase 37 U/L (26-308) Creatine Kinase MB 1.3 NG/ML (0.0-3.6) Creatine Kinase MB Relative Index 3.5 Troponin I 0.014 ng/mL (0.000-0.056) Pro-B-Type Natriuretic Peptide 244 pg/mL (0-125) Total Protein 6.3 G/DL (6.4-8.2) Albumin 2.4 G/DL (3.4-5.0) Globulin 3.9 g/dL Albumin/Globulin Ratio 0.6 (1.0-2.7) Lipase 87 U/L (73-393) (Jono Hackett MD) Other X-Ray Diagnostic Results Other X-Ray Diagnostic Results : X-Ray ordered: R forearm # of Views/Limited Vs Complete: 2 View Indication: Pain EP Interpretation: Yes Interpretation: no dislocation, no soft tissue swelling, other - lucency at radiocarpal joint Impression: Other - ?Fx Electronically Signed by: Electronically signed by Jono Hackett MD (Jono Hackett MD) CT/MRI/US Diagnostic Results CT/MRI/US Diagnostic Results : Imaging Test Ordered: CT Head Impression no acute process (Jono Hackett MD) Last Vital Signs Date Time Temp Pulse Resp B/P (MAP) Pulse Ox O2 Delivery O2 Flow Rate FiO2 08/28/19 12:45 97.9 71 21 116/47 97 Room Air (Marco Huang DO) Status: improved (Jono Hackett MD) Disposition: ADMITTED INPATIENT Condition: Serious Referrals: Piero uL MD (PCP) Marco Huang DO Aug 28, 2019 14:06 Jono Hackett MD Aug 28, 2019 18:17
--- NOTE | 2019-08-28 14:56 | Diagnostic Imaging Report ---
EXAM: CT Head Without Intravenous Contrast CLINICAL HISTORY: AMS TECHNIQUE: Axial computed tomography images of the head brain without intravenous contrast. CTDI is 60 mGy and DLP is 1304.2 mGy-cm. One or more of the following dose reduction techniques were used: automated exposure control, adjustment of the mA and or kV according to patient size, use of iterative reconstruction technique. COMPARISON: CT head 08 15 19 FINDINGS: Brain: No hemorrhage. Very mild small vessel white matter disease. No edema. No mass effect or midline shift. No fluid collections. Ventricles: Unremarkable. No ventriculomegaly. Bones joints: Unremarkable. No acute fracture. Soft tissues: Unremarkable. Sinuses: Unremarkable as visualized. No acute sinusitis. Mastoid air cells: Left mastoid air cell fluid may be mastoiditis. IMPRESSION: 1. No acute intracranial abnormality. 2. Left mastoid air cell fluid may be mastoiditis.
[2019-08-28 15:27] LABS: APPEARANCE,URINE CLEAR; BILIRUBIN, URINE NEGATIVE (NEGATIVE); COLOR,URINE PALE YELLOW; GLUCOSE, URINE (UA) NEGATIVE (NEGATIVE); KETONES,URINE 1+ (NEGATIVE); LEUKOCYTE ESTERASE ,URINE 2+ (NEGATIVE); NITRITE,URINE NEGATIVE (NEGATIVE); PH,URINE 7 (4.5-8.0); PROTEIN,URINE 1+ (NEGATIVE); UROBILINOGEN,URINE NORMAL MG/DL (0.0-1.0)
[2019-08-28] MEDS ORDERED: Haloperidol 5mg/ml Inj ONE (15:30)
[2019-08-28] MEDS ORDERED: Haloperidol 5mg/ml Inj IM ONE (15:30)
--- NOTE | 2019-08-28 15:34 | Diagnostic Imaging Report ---
EXAM: XR Left Forearm, 2 Views CLINICAL HISTORY: TRAUMA TECHNIQUE: Frontal and lateral views of the right forearm. COMPARISON: No relevant prior studies available. FINDINGS: Bones joints: Lucency the distal radius at the radiocarpal joint, may be projectional or degenerative, cannot exclude fracture. Osteopenic. Degenerative osteophytes at the radial neck. No dislocation. Soft tissues: Unremarkable. IMPRESSION: Lucency the distal radius at the radiocarpal joint, may be projectional or degenerative, cannot exclude fracture. Consider dedicated wrist films.
[2019-08-28 15:35] LABS: ANION GAP 6 mmol/L (5-15); BLOOD UREA NITROGEN 10 mg/dL (7-18); CALCIUM 10.1 MG/DL (8.5-10.1); CARBON DIOXIDE 33 MMOL/L (21-32); CHLORIDE 106 MMOL/L (98-107); CREATININE 0.7 MG/DL (0.55-1.30); SODIUM 145 MMOL/L (136-145)
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
[2019-08-28 15:47] LABS: AMMONIA < 10 umol/L (11-32)
[2019-08-28 15:48] LABS: EOSINOPHILS % (AUTO) 1.3 % (0.0-3.0); HEMATOCRIT 32.1 % (37.0-47.0); HEMOGLOBIN 9.7 G/DL (12.0-16.0); LYMPHOCYTES % (AUTO) 22.9 % (20.0-45.0); MEAN CORPUSCULAR VOLUME 89 FL (80-99); MONOCYTES % (AUTO) 10.9 % (1.0-10.0); NEUTROPHILS % (AUTO) 63.9 % (45.0-75.0); PLATELET COUNT 274 K/UL (150-450); RED BLOOD COUNT 3.61 M/UL (4.20-5.40); RED CELL DISTRIBUTION WIDTH 16.8 % (11.6-14.8); WHITE BLOOD COUNT 6.9 K/UL (4.8-10.8)
[2019-08-28 15:49] LABS: ALANINE AMINOTRANSFERASE 22 U/L (12-78); ALBUMIN 2.4 G/DL (3.4-5.0); ALBUMIN/GLOBULIN RATIO 0.6 (1.0-2.7); ALKALINE PHOSPHATASE 84 U/L (46-116); ASPARTATE AMINO TRANSFERASE 28 U/L (15-37); BILIRUBIN,TOTAL 0.5 MG/DL (0.2-1.0); CKMB 1.3 NG/ML (0.0-3.6); CREATINE KINASE 37 U/L (26-308)
[2019-08-28] MEDS ORDERED: NS w/KCl 40mEq 1,000 ML IV SCH (16:15)
[2019-08-28 16:19] VITALS: BP 120/59
[2019-08-28 17:12] VITALS: BP 134/47
--- NOTE | 2019-08-28 17:13 | NUR ---
ED Nurse Note: pt is in stable conidition on room air, her potassium is running on the pump. pt gave me a telephone number to call and stated that it was her daughter ivania. telephone: [phone]. HR: 97 RR: 18 BP: 124/47
--- NOTE | 2019-08-28 17:28 | NUR ---
ED Nurse Note: called to give report to admitting nurse but she just went down to lab, will call back in 5 min at [phone]
--- NOTE | 2019-08-28 17:35 | NUR ---
ED Nurse Note: called and gave report to Sofie AMBROSE. marine diesel technician will transport pt to 4th floor
--- NOTE | 2019-08-28 17:50 | NUR ---
NURSE NOTES: Received pt from ED, came on [facility], [place]ik speaking only. Patient came from [facility]. Patient is in stable condition, no complaint of pain or discomfort. Only belongings is a pair of flip-flops and a blanket. IV access on left hand gauge 20, receiving NS + 40 mEq KCl @ 100cc/hr, K = 3.0.
--- NOTE | 2019-08-28 20:00 | NUR ---
NURSE NOTES: received pt. in bed high flower's position. pt. facial grimacing, restless c/o headache. unable to lie flat d/t SOB. used of accessary of muscles to breath. productive cough present. scant clear, and thin sputum present. clearing secretion own. all lung field wheezes sounds present. bed in the lowest position and call light within reach. will provide plan of care.
--- NOTE | 2019-08-28 20:01 | NUR ---
HAND-OFF: Report given to HALIE Richard.
[2019-08-28 20:25] VITALS: BP 130/77
[2019-08-28] MEDS ORDERED: SEROQUEL25 MG ORAL (21:15)
[2019-08-28] MEDS ORDERED: PROTONIX40 MG ORAL (21:15)
[2019-08-28] MEDS ORDERED: NOVOLOG100 UNITS1 (21:15)
--- NOTE | 2019-08-28 21:40 | NUR ---
NURSE NOTES: Contacted Dr. Lu for admission orders at 2024. Received admission orders at 2054. Dr. Lu made aware that patient pulled out IV and was receiving NS+40KCL in ER. Received order to give 40Meq PO of KCl. Patient also was very restless due to shortness of breath.Dr. Lu made aware and received order for O2 and HHN PRN. Patient quickly placed on O2 and RT was called.
--- NOTE | 2019-08-28 22:30 | NUR ---
NURSE NOTES: R Forearm skin tear dressing was removed. Skin tear already had steristrip, appeared to still have flap. Wound was cleansed with NS and reinforced with steristrip and covered with gauze. Skin care protocol initiated.
[2019-08-28] MEDS: Albuterol/Ipratropium 3ml neb HHN PRN (23:20)
[2019-08-29] VITALS (7 sets, daily range): BP systolic 103–162; BP diastolic 53–83
[2019-08-29] MEDS: NovoLOG Insulin Flexpen SUBQ SCH ×4 (06:04→21:00)
--- NOTE | 2019-08-29 06:13 | NUR ---
NURSE NOTES: attempt to access new IV line but pt. wants to go back to sleep. pt. states "tired."
[2019-08-29 06:14] LABS: BASOPHILS % (AUTO) 0.7 % (0.0-2.0); EOSINOPHILS % (AUTO) 0.8 % (0.0-3.0); HEMATOCRIT 30.7 % (37.0-47.0); HEMOGLOBIN 9.3 G/DL (12.0-16.0); LYMPHOCYTES % (AUTO) 18.3 % (20.0-45.0); MEAN CORPUSCULAR VOLUME 88 FL (80-99); MONOCYTES % (AUTO) 12.2 % (1.0-10.0); PLATELET COUNT 251 K/UL (150-450); RED BLOOD COUNT 3.48 M/UL (4.20-5.40); RED CELL DISTRIBUTION WIDTH 17.1 % (11.6-14.8); WHITE BLOOD COUNT 6.3 K/UL (4.8-10.8)
[2019-08-29 06:43] LABS: ANION GAP 4 mmol/L (5-15); BLOOD UREA NITROGEN 8 mg/dL (7-18); CALCIUM 9.7 MG/DL (8.5-10.1); CARBON DIOXIDE 31 MMOL/L (21-32); CHLORIDE 110 MMOL/L (98-107); CREATININE 0.6 MG/DL (0.55-1.30); POTASSIUM 3.9 MMOL/L (3.5-5.1); SODIUM 145 MMOL/L (136-145)
--- NOTE | 2019-08-29 07:24 | NUR ---
HAND-OFF: Report given to Ara AMBROSE.
--- NOTE | 2019-08-29 07:54 | NUR ---
NURSE NOTES: Patient is awake and alert to name,respirations unlabored.Per report,patient has no IV and patient refuse.Will attempt today to reinsert IV.02 on at @L N/c.Bed alarm is on,call light within reach.
--- NOTE | 2019-08-29 07:59 | History & Physical ---
History and Physical History & Physicial 79 years old female with past medical history of COPD, asthma, atrial fibrillation, CHF, diabetes mellitus, hypertension, hyperlipidemia[facility], was sent for generalized weakness and after initial evaluation was diagnosed with urinary tract infection, possible pneumonia , sepsis and altered mental status. Patient with fall and evaluation. Patient admitted for observation. Patient with recent admission and Blood culture revealed E. coli ESBL. Urine culture revealed E. coli ESBL. Recent Venous duplex bilateral lower extremity revealed no evidence of acute DVT. Patient with paroxysmal SVT on telemetry. Repeated troponin was negative. Patient with mild dysphagia. As patient was clinically improving, mental status was improving to baseline as well. Supportive care provided. Bowel regimen instituted. overnight care reviewed PAST MEDICAL HISTORY Sepsis with E. coli ESBL bacteremia due to UTI E. coli ESBL UTI [facility] acquired pneumonia Acute metabolic encephalopathy Paroxysmal supraventricular tachyarrhythmia Hypomagnesemia Chronic diastolic congestive chest failure Hypomagnesemia Severe protein calorie malnutrition Dehydration Hypernatremia Asthma/COPD Diabetes mellitus Hypertensive heart disease Hyperlipidemia Cerebrovascular disease with dementia Dementia with behavioral disturbances PHYSICAL WDWN NAD clear breath sounds bilaterally without rhonchi or wheeze [id number] without MRG NABS nontender no HSM no CCE nonfocal confused brace on board Labs Test 08/28/19 14:50 08/28/19 14:56 08/29/19 05:50 Urine Color Pale yellow Urine Appearance Clear Urine pH 7 (4.5-8.0) Urine Specific [place] 1.005 (1.005-1.035) Urine Protein 1+ (NEGATIVE) Urine Glucose (UA) Negative (NEGATIVE) Urine Ketones 1+ (NEGATIVE) Urine Blood 4+ (NEGATIVE) Urine Nitrite Negative (NEGATIVE) Urine Bilirubin Negative (NEGATIVE) Urine Urobilinogen Normal MG/DL (0.0-1.0) Urine Leukocyte Esterase 2+ (NEGATIVE) Urine RBC 10-15 /HPF (0 - 2) Urine WBC 5-10 /HPF (0 - 2) Urine Squamous Epithelial Cells Few /LPF (NONE/OCC) Urine Bacteria None /HPF (NONE) White Blood Count 6.9 K/UL (4.8-10.8) 6.3 K/UL (4.8-10.8) Red Blood Count 3.61 M/UL (4.20-5.40) 3.48 M/UL (4.20-5.40) Hemoglobin 9.7 G/DL (12.0-16.0) 9.3 G/DL (12.0-16.0) Hematocrit 32.1 % (37.0-47.0) 30.7 % (37.0-47.0) Mean Corpuscular Volume 89 FL (80-99) 88 FL (80-99) Mean Corpuscular Hemoglobin 26.8 PG (27.0-31.0) 26.8 PG (27.0-31.0) Mean Corpuscular Hemoglobin Concent 30.1 G/DL (32.0-36.0) 30.4 G/DL (32.0-36.0) Red Cell Distribution Width 16.8 % (11.6-14.8) 17.1 % (11.6-14.8) Platelet Count 274 K/UL (150-450) 251 K/UL (150-450) Mean Platelet Volume 5.8 FL (6.5-10.1) 5.9 FL (6.5-10.1) Neutrophils (%) (Auto) 63.9 % (45.0-75.0) 68.0 % (45.0-75.0) Lymphocytes (%) (Auto) 22.9 % (20.0-45.0) 18.3 % (20.0-45.0) Monocytes (%) (Auto) 10.9 % (1.0-10.0) 12.2 % (1.0-10.0) Eosinophils (%) (Auto) 1.3 % (0.0-3.0) 0.8 % (0.0-3.0) Basophils (%) (Auto) 1.0 % (0.0-2.0) 0.7 % (0.0-2.0) Sodium Level 145 MMOL/L (136-145) 145 MMOL/L (136-145) Potassium Level 3.0 MMOL/L (3.5-5.1) 3.9 MMOL/L (3.5-5.1) Chloride Level 106 MMOL/L (98-107) 110 MMOL/L (98-107) Carbon Dioxide Level 33 MMOL/L (21-32) 31 MMOL/L (21-32) Anion Gap 6 mmol/L (5-15) 4 mmol/L (5-15) Blood Urea Nitrogen 10 mg/dL (7-18) 8 mg/dL (7-18) Creatinine 0.7 MG/DL (0.55-1.30) 0.6 MG/DL (0.55-1.30) Estimat Glomerular Filtration Rate mL/min (>60) mL/min (>60) Glucose Level 96 MG/DL (74-106) 98 MG/DL (74-106) Lactic Acid Level 1.10 mmol/L (0.4-2.0) Calcium Level 10.1 MG/DL (8.5-10.1) 9.7 MG/DL (8.5-10.1) Total Bilirubin 0.5 MG/DL (0.2-1.0) Aspartate Amino Transf (AST/SGOT) 28 U/L (15-37) Alanine Aminotransferase (ALT/SGPT) 22 U/L (12-78) Alkaline Phosphatase 84 U/L (46-116) Ammonia < 10 umol/L (11-32) Total Creatine Kinase 37 U/L (26-308) Creatine Kinase MB 1.3 NG/ML (0.0-3.6) Creatine Kinase MB Relative Index 3.5 Troponin I 0.014 ng/mL (0.000-0.056) Pro-B-Type Natriuretic Peptide 244 pg/mL (0-125) Total Protein 6.3 G/DL (6.4-8.2) Albumin 2.4 G/DL (3.4-5.0) Globulin 3.9 g/dL Albumin/Globulin Ratio 0.6 (1.0-2.7) Lipase 87 U/L (73-393) IMPRESSION s/p fall Healthcare acquired pneumonia Acute metabolic encephalopathy Paroxysmal supraventricular tachyarrhythmia Hypomagnesemia Chronic diastolic congestive chest failure Hypomagnesemia Severe protein calorie malnutrition Dehydration Hypernatremia Asthma/COPD Diabetes mellitus Hypertensive heart disease Hyperlipidemia Cerebrovascular disease with dementia PLAN care noted resume meds monitor for change ortho evaluation pain control dc to snf if cleared impression, plan, and exam edited and reviewed in detail care discussed with Piero Caba MD Aug 29, 2019 07:59
[2019-08-29] MEDS: Heparin 5000 units/ml inj SUBQ SCH ×2 (09:24→21:23)
[2019-08-29] MEDS: Lactobacillus-GG tablet ORAL SCH ×3 (09:28→18:20)
[2019-08-29] MEDS: Aspirin EC 81mg tab ORAL SCH (09:29)
[2019-08-29] MEDS: Metoprolol Tartrate 50mg tab ORAL SCH ×2 (09:32→21:24)
[2019-08-29] MEDS: Ascorbic Acid 500mg tab ORAL SCH (09:36)
--- NOTE | 2019-08-29 13:51 | NUR ---
NURSE NOTES: DR Lu notified of a positive Blood Culture,gram positive cocci in cluster 1 bottle.order r received to give vancomycin,pharmacy to dose. patient has no IV and patient refusing to have new IV inserted,will notify
[2019-08-29] MEDS: Vancomycin 1gm in D5W 275ml IVPB SCH (13:54)
--- NOTE | 2019-08-29 14:01 | NUR ---
CHARGE NURSE NOTE: Spoke with patient that she needs IV antibiotics and IV line insertion. Pt is refusing everything. is notified.
[2019-08-29] MEDS: Bactrim-DS 1 tab ORAL SCH ×2 (14:16→21:23)
--- NOTE | 2019-08-29 15:43 | NUR ---
PT Note PT pauline completed, treatment initiated. Patient has muscle weakness and decreased balance in sitting and standing. Patient needs physical therapy to increase her muscle strength and balance to improve her functional mobility to prior level of function. Addendum: 08/29/19 at 1544 by EVELIO VANN PT Amended: Links added.
[2019-08-29] MEDS ORDERED: MULTIVITAMINS1 EAC8 ORAL (16:28)
--- NOTE | 2019-08-29 18:25 | NUR ---
NURSE NOTES: Patient visiting with family,patient son state he will talk with his mother regarding letting the Nurse restart her Iv,patient refused IV restart earlier today.
--- NOTE | 2019-08-29 19:25 | NUR ---
HAND-OFF: Report given to Margie AMBROSE/Laney AMBROSE.
--- NOTE | 2019-08-29 20:00 | NUR ---
NURSE NOTES: received pt. in bed high flower's position. No productive cough present. clearing secretion own ability. bed in the lowest position and call light within reach. will provide plan of care.
[2019-08-29] MEDS: Guaifenesin/DM 10ml syrup ORAL PRN (22:51)
[2019-08-30 00:49] VITALS: BP 96/58
--- NOTE | 2019-08-30 00:56 | NUR ---
NURSE NOTES: Pt c/o difficulty sleeping. Pt requested medication to help her sleep. Left message to Dr. Lu. Dark and quiet environment provided. Will monitor.
[2019-08-30] MEDS: Albuterol/Ipratropium 3ml neb HHN PRN (02:42)
[2019-08-30] MEDS: Vancomycin 1gm in D5W 275ml IVPB SCH (03:29)
[2019-08-30 04:02] VITALS: BP 98/52
[2019-08-30] MEDS: NovoLOG Insulin Flexpen SUBQ SCH ×2 (06:15→11:30)
--- NOTE | 2019-08-30 07:39 | NUR ---
HAND-OFF: Report given to Kandace AMBROSE.
--- NOTE | 2019-08-30 07:41 | NUR ---
NURSE NOTES: Patient received in stable condition, eating breakfast by the bedside. Breathing unlabored with nasal cannula t 2L/min. Breathing treatment completed this morning. IV site on left hand patent and intact, saline locked. Commode by the bedside. Bed locked in lowest position. Call light placed within reach, will continue to monitor.
[2019-08-30 08:00] VITALS: BP 99/56
--- NOTE | 2019-08-30 08:34 | General Progress Note ---
Assessment/Plan Assessment/Plan: IMPRESSION s/p fall Healthcare acquired pneumonia Acute metabolic encephalopathy Paroxysmal supraventricular tachyarrhythmia Hypomagnesemia Chronic diastolic congestive chest failure Hypomagnesemia Severe protein calorie malnutrition Dehydration Hypernatremia Asthma/COPD Diabetes mellitus Hypertensive heart disease Hyperlipidemia Cerebrovascular disease with dementia Bcx + refusing IV PLAN care noted maintain meds ON BACTRIM monitor for change ortho evaluation if needed xray wrist and hope to dc today pain control dc to snf if cleared impression, plan, and exam edited and reviewed in detail care discussed with RN Subjective Allergies: Coded Allergies: INFLIXIMAB (Verified Allergy, Unknown, 08/15/19) Subjective overall same agitated Objective Last 24 Hour Vital Signs Date Time Temp Pulse Resp B/P (MAP) Pulse Ox O2 Delivery O2 Flow Rate FiO2 08/30/19 08:17 87 18 97 Nasal Cannula 2.0 28 08/30/19 08:17 97 Nasal Cannula 2.0 28 08/30/19 08:00 97.9 80 20 99/56 (70) 95 08/30/19 04:02 98.1 83 18 98/52 (67) 94 08/30/19 02:42 86 20 97 Nasal Cannula 2.0 28 82 20 94 08/30/19 00:49 98.9 85 20 96/58 (71) 95 08/29/19 22:30 Nasal Cannula 2.0 08/29/19 21:24 80 116/72 08/29/19 20:13 98.2 76 16 114/66 (82) 95 08/29/19 19:51 96 Nasal Cannula 2.0 28 08/29/19 19:51 74 20 96 Nasal Cannula 2.0 28 08/29/19 16:00 98.1 72 17 130/72 (91) 100 08/29/19 12:00 97.5 78 20 103/56 (72) 94 08/29/19 10:31 Nasal Cannula 2.0 08/29/19 09:32 104 121/76 08/29/19 09:30 104 121/76 (91) Intake and Output 08/29/19 08/30/19 19:00 07:00 Intake Total 300 ml 1025.000 ml Balance 300 ml 1025.000 ml Intake Oral 300 ml 750 ml IV Total 275.000 ml # Voids 8 # Bowel Movements 1 Height (Feet): 5 Height (Inches): 4.00 Weight (Pounds): 141 Objective WDWN NAD clear breath sounds bilaterally without rhonchi or wheeze [id number] without MRG NABS nontender no HSM no CCE nonfocal but confused Piero Marquez MD Aug 30, 2019 08:34
[2019-08-30] MEDS: Bactrim-DS 1 tab ORAL SCH (08:52)
[2019-08-30] MEDS: Aspirin EC 81mg tab ORAL SCH (08:52)
[2019-08-30] MEDS: Lactobacillus-GG tablet ORAL SCH (08:52)
[2019-08-30] MEDS: Ascorbic Acid 500mg tab ORAL SCH (08:53)
[2019-08-30] MEDS: Metoprolol Tartrate 50mg tab ORAL SCH (09:00)
[2019-08-30] MEDS: Heparin 5000 units/ml inj SUBQ SCH (09:00)
[2019-08-30] MEDS: Guaifenesin/DM 10ml syrup ORAL PRN (09:03)
--- NOTE | 2019-08-30 10:49 | NUR ---
RADIOLOGY DEPT., BILATERAL WRIST X-RAYS COMPLETED.-P.DYE
--- NOTE | 2019-08-30 11:14 | Diagnostic Imaging Report ---
Indication: Chest pain Technique: One view of the chest Comparison: 08/23/2019 Findings: Inspiration is suboptimal, with crowding of bronchovascular markings as a result. Atelectatic changes are seen at the right lung base. Left hemidiaphragm is obscured. This probably indicates pleural fluid, although this appears to be decreased from the prior study. The heart is border line enlarged. There is equivocal pulmonary vascular congestion, although this is probably an artifact of poor inspiration. Impression: Decreased since the persistent left-sided pleural fluid and probably underlying parenchymal disease Hypoventilatory exam with by basilar atelectatic changes Equivocal mild interstitial congestion-correlate with clinical findings
--- NOTE | 2019-08-30 11:42 | Diagnostic Imaging Report ---
Clinical Indication:Right wrist pain Technique: 4 views of the right wrist Comparison: None Findings: The bones are osteoporotic. No acute fractures. No dislocations. The joint spaces are preserved. There is some degenerative proliferative change of the distal radial ulnar joint. Impression: No acute bony trauma Osteoporosis
--- NOTE | 2019-08-30 11:42 | Diagnostic Imaging Report ---
Clinical Indication:Left wrist pain Technique: 4 views of the left wrist Comparison: None Findings: There is an ununited old ulnar styloid fracture. There are degenerative proliferative changes of the distal radioulnar joint. No acute fractures. No dislocations. The bones are osteoporotic. Impression: No acute bony trauma Osteoporosis
[2019-08-30] MEDS ORDERED: VANCOMYCIN500 MG/100 IV (11:44)
[2019-08-30 12:00] VITALS: BP 117/70
--- NOTE | 2019-08-30 12:56 | NUR ---
NURSE NOTES: Patient discharged to SNF, accompanied by ambulance personnel. Belongings confirmed. Report given to Shira AMBROSE at [place]. Per her request, IV site on right arm kept as patient needs IV antibiotic for 1 week. No signs of infiltration, leaking or irritation noted. Patient is stable condition, aware she is going back to SNF. Daughter informed.
[2019-08-30] MEDS ORDERED: Tubing IV Secondary IV ONE (13:03)
[2019-08-30] MEDS ORDERED: NS 275ml ONE (13:03)
--- NOTE | 2019-08-30 13:57 | Cardiology Report ---
APPROVED REPORT EKG Measurement Heart [id number] Normal sinus rhythm Incomplete right bundle branch block Moderate voltage criteria for LVH, may be normal variant Nonspecific T wave abnormality Abnormal ECG
--- NOTE | 2019-08-30 14:47 | NUR ---
*-* INSURANCE *-* ALL AVAILABLE CLINICALS HAVE BEEN [place]: [facility] [place]: ALFONSO P- [phone] [id number] [phone] [id number] F- [phone]....REVIEW/CLINICAL
--- NOTE | 2019-08-30 17:45 | Consultation ---
DATE OF CONSULTATION: 08/30/2019 INFECTIOUS DISEASES CONSULTATION CONSULTING PHYSICIAN: Terry Solorzano M.D. REFERRING PHYSICIAN: Piero Lu M.D. REASON FOR CONSULTATION: Sepsis. HISTORY OF PRESENTING ILLNESS: This is a 79-year-old lady with history of diabetes, hypertension, congestive heart failure, COPD, asthma, hyperlipidemia who was transferred from a half-way facility for weakness. She was found to have a urinary tract infection and pneumonia and now she has positive blood cultures and an Infectious Diseases consultation has been obtained for antibiotics. PAST MEDICAL HISTORY: 1. History of pneumonia. 2. Encephalopathy. 3. Supraventricular tachycardia. 4. Congestive heart failure. 5. Asthma. 6. COPD. 7. Diabetes. 8. Hypertension. 9. Hyperlipidemia. 10. CVA with dementia. SOCIAL HISTORY: Unknown. FAMILY HISTORY: Unknown. REVIEW OF SYSTEMS: Unable to obtain currently. MEDICATIONS: As an inpatient, the patient is on atorvastatin, IV vancomycin, Bactrim, ascorbic acid, aspirin, subcutaneous heparin, metoprolol, Protonix, Seroquel, Lactobacillus, multivitamin, insulin, albuterol ipratropium, guaifenesin, dextromethorphan, Tylenol. ALLERGIES: Infliximab. PHYSICAL EXAMINATION: VITAL SIGNS: Temperature of 97.9, T-max of 98.9, pulse of 87, respiratory rate of 18, blood pressure 99/56, O2 saturation of 97%. HEENT: Pupils equally reactive to light and accommodation. Mouth appears clean without thrush. NECK: Supple. No adenopathy. No JVD. CARDIOVASCULAR: Regular rate and rhythm. No murmurs. LUNGS: Clear to auscultation bilaterally. No crackles. No wheezes. ABDOMEN: Soft and nontender. No organomegaly. EXTREMITIES: No cyanosis, no clubbing, no edema. LABORATORY AND DIAGNOSTIC DATA: White count of 6.3, hemoglobin 9.3, hematocrit 30.7, MCV 88, platelet count of 251, with neutrophils of 68%. Sodium 145, potassium 3.9, chloride 110, bicarb 31, BUN 8, creatinine 0.6, glucose 98, calcium 8.7. On 08/28/2019 total bilirubin 0.5, AST 28, ALT 22, alkaline phosphatase 84. Ammonia less than 10, CK of 37, CK-MB 1.3. Troponin 0.014. Total protein 6.3 and albumin 2.4. Lipase of 87 .UA showing 5 to 10 white cells. Rectal swab was positive for VRE. Nasal swab was negative for MRSA. Blood cultures on 08/28/2019 growing gram-positive cocci in clusters. CT head showing no acute abnormalities, left mastoid air fluid may be mastoiditis. ASSESSMENT: This is a 79-year-old lady with history of COPD, diabetes, hypertension, asthma, atrial fibrillation who comes in with weakness and altered mental status and is found to have. 1. Bacteremia with gram-positive cocci. 2. Rectal VRE colonization. 3. Recent E. coli sepsis status post therapy. 4. Anemia. 5. Diabetes. 6. Hypertension. 7. COPD. PLAN: 1. Discontinue Bactrim. 2. Continue IV vancomycin if the patient agrees. If the patient refuses, we will start the patient on oral linezolid. 3. We will follow up cultures and adjust antibiotics accordingly. I would like to thank, Dr. Lu, for this consultation. Terry Solorzano M.D. DR: Joshua JOB#: [id number] CC: Piero Lu M.D.; Fax#: [phone]
--- NOTE | 2019-08-31 13:10 | Discharge Summary ---
Discharge Summary Discharge Summary _ DATE OF ADMISSION: 08/28/2019 DATE OF DISCHARGE: 08/30/2019 DISCHARGED BY: Dr. Lu REASON FOR ADMISSION: 79 years old female with past medical history of COPD, asthma, congestive heart failure, diabetes mellitus, hypertension, hyperlipidemia, resident of [facility] facility, was sent for evaluation due to fall. Patient was recently discharged from the hospital for sepsis with E. coli ESBL bacteremia due to UTI, E. coli ESBL UTI and healthcare acquired pneumonia. Upon initial evaluation patient appeared to be significantly confused and encephalopathic. Patient had Steri-Strips at the right forearm from the recent trauma. Upon evaluation vital signs were stable. Laboratory work-up revealed no leukocytosis, hemoglobin 9.7 , hematocrit 32.1. Platelet count 274. Potassium 3.0. Stable other electrolytes and renal parameters. Glucose 96. Lactic acid 1.1. Troponin - 0.014. Pro BNP 244. Albumin 2.4. Lipase 87. Stable LFT. Chest x-ray revealed decreased persistent left-sided pleural fluid, noted on prior X ray and probably underlying parenchymal disease Hypoventilatory exam with bibasilar atelectatic changes. Equivocal mild interstitial congestion. CT of the head revealed no acute intracranial abnormality. Right forearm x-ray revealed lucency of the distal radius in the radiocarpal joint , may be projectional or degenerative changes. In the emergency department right forearm was placed in Velcro splint. Patient became acutely agitated during the emergency department course. Patient with underlying psychiatric history. Patient received Haldol in the emergency department. Potassium replaced. Patient subsequently admitted to the hospital for further management. HOSPITAL COURSE: Patient admitted to medical surgical floor. Pain management was addressed. Potassium stable after replacement. Blood culture 1 out of 2 revealed Staph coagulase negative. Infectious disease specialist consult was requested. Patient also with recent history of prior E. coli sepsis, status post treatment. Patient initially was started on Bactrim. Bactrim was changed to IV vancomycin as per ID specialist recommendation. SNF medication were resumed , including antiplatelet therapy with aspirin and statin. DVT prophylaxis provided. Blood pressure was managed with beta-sandy and remained stable. GI prophylaxis provided. Blood sugar was managed with sliding scale of insulin. Psychiatric medication regimen was continued. Supplemental oxygen titrated as needed to keep pulse oximetry above 92%. Pulmonary toilet with bronchodilator was on board as needed. Pulse oximetry was stable on room air. Hemoglobin and hematocrit were closely monitored with goal to keep hemoglobin above 7 . Globin hematocrit remain in baseline. Fall precautions were maintained. Patient was working with physical therapist. X-ray 4 views of the left and right wrist revealed no evidence of acute fracture. Patient clinically stabilized and was ready for discharge to [facility] for continuation of care. Repeat blood culture in the facility for clearance. FINAL DIAGNOSES: Bacteremia with gram-positive cocci. Recent E. coli sepsis, status post treatment Status post fall Acute metabolic encephalopathy Recent healthcare acquired pneumonia Severe protein calorie malnutrition Asthma/COPD Hypertensive heart disease Hyperlipidemia Cerebrovascular disease with dementia Diabetes mellitus Chronic diastolic congestive heart failure DISCHARGE MEDICATIONS: See Medication Reconciliation list. DISCHARGE INSTRUCTIONS: Patient was discharged to the [facility] facility. Follow up with medical doctor at the facility. I have been assigned to dictate discharge summary for this account. I was not involved in the patient's management. Sayra Schmidt NP Aug 31, 2019 13:10
--- NOTE | 2019-09-01 11:24 | NUR ---
*-* INSURANCE *-* DISCHARGE SUMMARY HAS BEEN FAXED TO: [facility] [place] NCM: ALFONSO P- [phone] [id number] [phone] 1142 F- [phone]....REVIEW/CLINICAL
== END 2019-08-30 13:04 | DRG 139 ==
LOC: EDUNIT# 12:23 → EDBD 12:23 → EMR 13:00 → EDBEDREQ 14:05 → 4E 17:15
DX: J18.9 Pneumonia, unspecified organism (principal); Y95 Nosocomial condition; G93.41 Metabolic encephalopathy; I47.1 Supraventricular tachycardia; R78.81 Bacteremia; I11.0 Hypertensive heart disease with heart failure; I50.32 Chronic diastolic (congestive) heart failure; E83.42 Hypomagnesemia; E43 Unspecified severe protein-calorie malnutrition; E86.0 Dehydration; E87.0 Hyperosmolality and hypernatremia; Z91.81 History of falling; J44.9 Chronic obstructive pulmonary disease, unspecified; E11.9 Type 2 diabetes mellitus without complications; E78.5 Hyperlipidemia, unspecified; F01.50 Vascular dementia, unspecified severity, without behavioral disturbance, psychotic disturbance, mood disturbance, and anxiety; I69.319 Unspecified symptoms and signs involving cognitive functions following cerebral infarction; Z88.8 Allergy status to other drugs, medicaments and biological substances; Z68.24 Body mass index [BMI] 24.0-24.9, adult
CPT/HCPCS: 29125; 36415; 70450; 71045; 80048; 80053; 81003; 82140; 82550; 82553; 82962; 83605; 83690; 83880; 84484; 85025; 87040; 87081; 87181; 93005; 94640; 94664; 96365; 96366; 96372; 99285; J1815; J7620; J8499